=== PATIENT | male | born 1950 | race Caucasian/White ===

== ENCOUNTER 2022-12-07 07:55 | Outpatient (OUT) | payer MEDICARE, SELFPAY ==
[2022-12-07 08:34] LABS: Basophils Percent Auto 0.4 % (0.2-2.0); Eosinophils Absolute Auto 0.2 10^3/uL (0.0-0.7); Eosinophils Percent Auto 2.1 % (0.9-7.0); Hematocrit 43.7 % (42.0-54.0); Immature Granulocytes Abs Auto 0.01 10^3/uL (0.00-0.03); Immature Granulocytes Pct Auto 0.1 % (0.0-0.5); Lymphocytes Percent Auto 28.5 % (20.5-60.0); Mean Corpuscular Volume 90.5 fL (80.0-94.0); Mean Platelet Volume 9.8 fL (9.5-13.5); Monocytes Absolute Auto 0.6 10^3/uL (0.3-0.8); Monocytes Percent Auto 8.3 % (1.7-12.0); Neutrophils Absolute Auto 4.2 10^3/uL (1.4-6.5); Neutrophils Percent Auto 60.6 % (43.0-75.0); Platelet Count 171 10^3/uL (150-450); Red Blood Count 4.83 10^6/uL (4.70-6.10); Red Cell Distribution Width 13.6 % (11.0-15.0)
[2022-12-07 09:40] LABS: Alanine Aminotransferase 30 U/L (16-63); Albumin Globulin Ratio 1.3; Alkaline Phosphatase 104 U/L (46-116); Anion Gap 15.1; Aspartate Amino Transferase 25 U/L (15-37); BUN Creatinine Ratio 23.3; Bilirubin Total 1.2 mg/dL (0.2-1.0); Carbon Dioxide 23.9 mmol/L (21.0-32.0); Chloride 106 mmol/L (98-107); Chol HDL Ratio 3.3; Cholesterol 120 mg/dL (<=200); Estimated GFR (African America >60 (>=60); Estimated GFR (Non-African Ame >60 (>=60); Globulin 3.1 g/dL; Glucose 104 mg/dL (74-106); HDL Cholesterol 36 mg/dL (40-60); Sodium 141 mmol/L (136-145); Total Protein 7.1 g/dL (6.4-8.2); Triglycerides 121 mg/dL (<=150); VLDL CHOLESTEROL 24.2 mg/dL
== END 2022-12-07 07:56 | disposition home or self-care (01) ==
LOC: LAB 07:58
PROVIDERS: PCP Internal Medicine; Visit Provider Internal Medicine Interventional Cardiology
DX: E78.2 Mixed hyperlipidemia (principal)
CPT/HCPCS: 36415; 80053; 80061; 85025

== ENCOUNTER 2023-04-21 01:14 | Emergency (ER) | payer MEDICARE, SELFPAY ==
[2023-04-21 01:16] VITALS: BP 143/76; PULSE 74; RESP 18; TEMP 36.7; O2SAT 98; BMI 24.4
--- NOTE | 2023-04-21 01:23 | PC.NURSE ---
Pt reports fall onto right side last Sunday. Intermittent pain in right lumbar region that radiates to RLQ of abd.
--- NOTE | 2023-04-21 01:24 | CT_ITS ---
[facility] [place] [id number] Patient Name: JEREMY BAUM MRN: [id number] date: 1950 Sex: M Assigned Patient Location: ER Current Patient Location: Accession/Order Number: [id number] Exam Date: 04/21/2023 01:50 Report Date: 04/21/2023 03:39 At the request of: AVA RILEY Procedure: CT abdomen pelvis wo con EXAM: CT abdomen pelvis wo con HISTORY: right flank pain , right lower back pain. COMPARISON: No comparison imaging available at the time of dictation TECHNIQUE: Multiple axial views CT abdomen and pelvis without IV contrast. Coronal sagittal reformats. FINDINGS: Visualized lung bases are unremarkable. Visualized cardiac apex demonstrates borderline heart size with partially visualized left and right coronary artery calcifications. Moderate amount of calcifications at the aortic valves. Small hiatal hernia. Liver, gallbladder, pancreas, spleen, adrenal glands, and appendix are unremarkable. Mild right hydroureteronephrosis secondary to a 3 mm right ureterovesical junction stone (image 130 series 3). A 6 mm left distal ureteral stone without left hydroureteronephrosis (image 127 series 3). Multiple 2-3 mm nonobstructing bilateral renal stones (7 calculi scattered throughout the right kidney and 2 calculi at the left mid and inferior kidney). Urinary bladder is underdistended. Prostate is not seen or surgically absent. Mild colonic diverticula. Moderate amount of stool within the right large bowel. No evidence for small bowel obstruction, large ascites, or free air. No acute bony abnormality. CT/CT abdomen pelvis wo con IMPRESSION: Mild right hydroureteronephrosis secondary to a 3 mm right ureterovesical junction stone. A 6 mm left distal ureteral stone without left hydroureteronephrosis. Multiple 2-3 mm nonobstructing bilateral renal stones. Electronically authenticated by: WOODY SINGH Date: 04/21/2023 03:39
--- NOTE | 2023-04-21 01:26 | ED_ITS ---
HPI - General Adult General Chief complaint: Back Pain/Injury Stated complaint: BACK PAIN Time Seen by Provider: 04/21/23 01:21 Source: patient Mode of arrival: walk-in Limitations: no limitations History of Present Illness HPI narrative: sudden right flank pain that started around 9pm and ranked 10/10. He took tylenol - very little improvement - still ranks pain 8/10. Nausea without vomiting. Denied any urinary symptoms. He admitted he fell about a week ago =- twisted his ankle and had some right lower back pain - but tonight's pain was different, he told me. No fever or chills. Related Data Home Medications Medication Instructions Recorded Confirmed amlodipine 10 mg tablet 10 mg PO DAILY 04/21/23 04/21/23 aspirin 81 mg tablet,delayed 81 mg PO DAILY 04/21/23 04/21/23 release atorvastatin 40 mg tablet 40 mg PO DAILY 04/21/23 04/21/23 lisinopril 40 mg tablet 40 mg PO DAILY 04/21/23 04/21/23 metoprolol tartrate 25 mg tablet 25 mg PO DAILY 04/21/23 04/21/23 Previous Rx's Medication Instructions Recorded nabumetone 750 mg tablet 750 mg PO BID PRN pain #30 tabs 04/21/23 ondansetron 4 mg disintegrating 4 mg PO Q6H PRN nausea and 04/21/23 tablet vomiting #20 tabs tamsulosin 0.4 mg capsule (Flomax) 0.4 mg PO DAILY #10 caps 04/21/23 Allergies Allergy/AdvReac Type Severity Reaction Status Date / Time Sulfa (Sulfonamide Allergy Intermediate Verified 04/21/23 01:21 Antibiotics) Exam Narrative Exam Narrative: Nurses notes and vital signs reviewed and patient is not hypoxic. afebrile General: Well-appearing and in no apparent distress. Skin: Warm, dry, no pallor noted. No rash to flank or abdomen. Eye: Pupils are equal, round and EOMI. No scleral icterus. Ears, Nose, Mouth, and Throat: TM are clear, no nasal mucosal hypertrophy. Ora l mucosa is moist, no posterior oropharynx erythema, uvula is mid-line Cardiovascular: Regular Rate and Rhythm without murmur, gallop or rub. Respiratory: No accessory muscle use or respiratory distress. Lungs are clear to auscultation, no wheezing, rales or rhonchi Back: right flank tenderness and right CVA tenderness Musculoskeletal: normal ROM GI: Abdomen is soft, non-distended. Normal bowel sounds. No masses appreciated. No tenderness to palpation. No rebound, guarding, or rigidity noted. Neurological: A&O x4. No cranial nerve dysfunction observed. No truncal ataxia. Moves all extremities. Sensation intact. Psychiatric: Cooperative and interactive. Normal mood and affect. Constitutional Vital Signs, click to edit/add: Last Vital Signs Temp 98.0 F 04/21/23 01:16 Pulse 74 04/21/23 01:16 Resp 18 04/21/23 01:16 BP 143/76 H 04/21/23 01:16 Pulse Ox 98 04/21/23 01:16 O2 Del Method Room Air 04/21/23 01:16 Course Vital Signs Vital signs: Vital Signs Temperature 98.0 F 04/21/23 01:16 Pulse Rate 74 04/21/23 01:16 Respiratory Rate 18 04/21/23 01:16 Blood Pressure 143/76 H 04/21/23 01:16 Pulse Oximetry 98 04/21/23 01:16 Oxygen Delivery Method Room Air 04/21/23 01:16 Temperature 98.0 F 04/21/23 01:16 Pulse Rate 74 04/21/23 01:16 Respiratory Rate 18 04/21/23 01:16 Blood Pressure 143/76 H 04/21/23 01:16 Pulse Oximetry 98 04/21/23 01:16 Oxygen Delivery Method Room Air 04/21/23 01:16 Medical Decision Making MDM Narrative Medical decision making narrative: blood was ordered to be sent for testing. Urine was also ordered to be sent for testing. The patient was sent for CT scanning of the abdomen pelvis without contrast. He was given IV Toradol for pain. WBC 11.9k with left shift. Unremarkable metabolic panel except for slightly elevated glucose. UA negative. Patient's pain down to 2/10 after ED treatment. Tests results discussed with the patient and CT abd/pelvis would not transmit and then the radiologist's reading would not transmit back to us. I called repeatedly to [facility] to determine the problem. I finally got a verbal reading at [id number] - patient has a 3mm right UVJ stone with hydroureteronephrosis and 6mm left distal ureteral stone without hydro. He also has multiple 2-3mm stones in the both kidneys. Patient informed of results and discharged home with prescriptions for zofran, flomax and relafen. He was given referral info for the urologist. Instructed to return to the ED if he worsens. Lab Data Lab results reviewed: Yes I reviewed the patient's lab results Labs: Lab Results 04/21/23 04/21/23 Range/Units 01:30 02:16 WBC 11.9 H (4.0-11.0) 10^3/uL RBC 4.58 L (4.70-6.10) 10^6/uL Hgb 13.4 L (14.0-18.0) g/dL Hct 41.4 L (42.0-54.0) % MCV 90.4 (80.0-94.0) fL MCH 29.3 (25.9-34.0) pg MCHC 32.4 (29.9-35.2) g/dL RDW 13.9 (11.0-15.0) % Plt Count 189 (150-450) 10^3/uL MPV 9.7 (9.5-13.5) fL Neut % (Auto) 81.6 H (43.0-75.0) % Lymph % (Auto) 12.1 L (20.5-60.0) % Hopkins % (Auto) 4.9 (1.7-12.0) % Eos % (Auto) 0.8 L (0.9-7.0) % Baso % (Auto) 0.3 (0.2-2.0) % Neut # (Auto) 9.7 H (1.4-6.5) 10^3/uL Lymph # (Auto) 1.4 (1.2-3.8) 10^3/uL Hopkins # (Auto) 0.6 (0.3-0.8) 10^3/uL Eos # (Auto) 0.1 (0.0-0.7) 10^3/uL Baso # (Auto) 0.0 (0.0-0.1) 10^3/uL Abs Immat Gran (auto) 0.03 (0.00-0.03) 10^3/uL Imm/Tot Granulo (auto) 0.3 (0.0-0.5) % Sodium 139 (136-145) mmol/L Potassium 4.1 (3.5-5.1) mmol/L Chloride 105 (98-107) mmol/L Carbon Dioxide 26.0 (21.0-32.0) mmol/L Anion Gap 12.1 BUN 17.0 (7.0-18.0) mg/dL Creatinine 1.29 (0.70-1.30) mg/dL Est GFR ( Amer) >60 (>=60) Est GFR (Non-Af Amer) 55 L (>=60) BUN/Creatinine Ratio 13.2 Glucose 153 H (74-106) mg/dL Calcium 9.1 (8.5-10.1) mg/dL Total Bilirubin 0.6 (0.2-1.0) mg/dL AST 20 (15-37) U/L ALT 23 (16-63) U/L Alkaline Phosphatase 112 (46-116) U/L Total Protein 7.1 (6.4-8.2) g/dL Albumin 4.0 (3.4-5.0) g/dL Globulin 3.1 g/dL Albumin/Globulin Ratio 1.3 Urine Color Lt. yellow (YELLOW) Urine Clarity Clear (CLEAR) Urine pH 6.0 (5.0-9.0) Ur Specific [place]lett 1.020 (1.005-1.025) Urine Protein Negative (NEG/TRACE) mg/dL Urine Glucose (UA) Negative (NEGATIVE) mg/dL Urine Ketones Negative (NEGATIVE) mg/dL Urine Occult Blood Trace-i (NEGATIVE) Urine Nitrite Negative (NEGATIVE) Urine Bilirubin Negative (NEGATIVE) Urine Urobilinogen 0.2 (0.2-1.0) EU/dL Ur Leukocyte Esterase Negative (NEGATIVE) Urine RBC 0-2 (0-2) #/HPF Urine WBC None seen (NONE SEEN) #/HPF Ur Squamous Epith Cells None seen (NONE/RARE) #/LPF Urine Crystals None seen (None Seen) #/HPF Urine Bacteria Trace A (NONE SEEN) #/HPF Urine Casts None seen (NONE SEEN) #/LPF Urine Mucus None seen (NONE SEEN) Ur Culture Indicated? No Imaging Data CT scan - abdomen: My impression: see MDM above Discharge Plan Discharge Chief Complaint: Back Pain/Injury Clinical Impression: Hydroureteronephrosis, Calculus of distal left ureter, Right distal ureteral calculus Patient Disposition: Home, Self-Care Time of Disposition Decision: 04:32 Prescriptions / Home Meds: New tamsulosin [Flomax] 0.4 mg capsule 0.4 mg PO DAILY Qty: 10 0RF ondansetron 4 mg tablet,disintegrating 4 mg PO Q6H PRN (Reason: nausea and vomiting) Qty: 20 0RF nabumetone 750 mg tablet 750 mg PO BID PRN (Reason: pain) Qty: 30 0RF No Action amlodipine 10 mg tablet 10 mg PO DAILY atorvastatin 40 mg tablet 40 mg PO DAILY lisinopril 40 mg tablet 40 mg PO DAILY metoprolol tartrate 25 mg tablet 25 mg PO DAILY aspirin 81 mg tablet,delayed release (DR/EC) 81 mg PO DAILY Instructions: Hydronephrosis (ED), Ureteral Stones (ED) Stand Alone Forms: Portal Instructions Referrals: Long Turcios MD [Physician] - As soon as possible
[2023-04-21] MEDS: ONDANSETRON PF 4 MG/2 ML VIAL IV (01:36)
[2023-04-21] MEDS: KETOROLAC TROMETHAMINE 30 MG/ML VIAL IVP (01:36)
[2023-04-21 01:38] LABS: Basophils Percent Auto 0.3 % (0.2-2.0); Eosinophils Absolute Auto 0.1 10^3/uL (0.0-0.7); Eosinophils Percent Auto 0.8 % (0.9-7.0); Hematocrit 41.4 % (42.0-54.0); Hemoglobin 13.4 g/dL (14.0-18.0); Immature Granulocytes Abs Auto 0.03 10^3/uL (0.00-0.03); Immature Granulocytes Pct Auto 0.3 % (0.0-0.5); Lymphocytes Absolute Auto 1.4 10^3/uL (1.2-3.8); Lymphocytes Percent Auto 12.1 % (20.5-60.0); Mean Corpuscular HGB Conc 32.4 g/dL (29.9-35.2); Mean Corpuscular Hemoglobin 29.3 pg (25.9-34.0); Mean Corpuscular Volume 90.4 fL (80.0-94.0); Mean Platelet Volume 9.7 fL (9.5-13.5); Monocytes Absolute Auto 0.6 10^3/uL (0.3-0.8); Monocytes Percent Auto 4.9 % (1.7-12.0); Neutrophils Absolute Auto 9.7 10^3/uL (1.4-6.5); Neutrophils Percent Auto 81.6 % (43.0-75.0); Platelet Count 189 10^3/uL (150-450); Red Blood Count 4.58 10^6/uL (4.70-6.10); Red Cell Distribution Width 13.9 % (11.0-15.0); White Blood Count 11.9 10^3/uL (4.0-11.0)
[2023-04-21 01:53] LABS: Alanine Aminotransferase 23 U/L (16-63); Albumin Globulin Ratio 1.3; Alkaline Phosphatase 112 U/L (46-116); Anion Gap 12.1; Aspartate Amino Transferase 20 U/L (15-37); BUN Creatinine Ratio 13.2; Bilirubin Total 0.6 mg/dL (0.2-1.0); Calcium 9.1 mg/dL (8.5-10.1); Chloride 105 mmol/L (98-107); Estimated GFR (African America >60 (>=60); Estimated GFR (Non-African Ame 55 (>=60); Globulin 3.1 g/dL; Glucose 153 mg/dL (74-106); Potassium 4.1 mmol/L (3.5-5.1); Sodium 139 mmol/L (136-145); Total Protein 7.1 g/dL (6.4-8.2)
[2023-04-21 02:19] LABS: Bilirubin Urine NEGATIVE (NEGATIVE); Blood Urine TRACE-I (NEGATIVE); Clarity Urine CLEAR (CLEAR); Color Urine LT. YELLOW (YELLOW); Glucose Urine UA NEGATIVE (NEGATIVE); Ketones Urine NEGATIVE (NEGATIVE); Leukocyte Esterase Urine NEGATIVE (NEGATIVE); Nitrite Urine NEGATIVE (NEGATIVE); Protein Urine NEGATIVE (NEG/TRACE); Urobilinogen Urine 0.2 EU/dL (0.2-1.0)
[2023-04-21 02:24] LABS: Urine Microscopic Indicated YES
[2023-04-21 02:30] LABS: Bacteria Urine TRACE #/HPF (NONE SEEN); Cast Seen? NONE SEEN #/LPF (NONE SEEN); Crystals Seen? None Seen #/HPF (None Seen); Mucus Urine NONE SEEN (NONE SEEN); RBC Urine 0-2 #/HPF (0-2); Squamous Epithelial Cell Urine NONE SEEN #/LPF (NONE/RARE); Urine Culture Indicated NO; WBC Urine NONE SEEN #/HPF (NONE SEEN)
[2023-04-21 04:44] VITALS: BP 144/98; PULSE 68; RESP 16; O2SAT 99
== END 2023-04-21 04:46 | disposition home or self-care (01) ==
PROVIDERS: Emergency Provider Emergency Medicine; PCP Family Medicine
DX: N13.2 Hydronephrosis with renal and ureteral calculous obstruction (principal); Z79.82 Long term (current) use of aspirin; Z79.899 Other long term (current) drug therapy
CPT/HCPCS: 36415; 74176; 80053; 81001; 82365; 85025; 96374; 96375; 99285

== ENCOUNTER 2023-04-21 11:00 | Outpatient (OUT) | payer MEDICARE, SELFPAY ==
[2023-05-08 15:08] LABS: Calcium Oxalate Monohydrate 100 % (.); Size 3x3 mm (.)
== END 2023-04-21 11:01 | disposition home or self-care (01) ==
LOC: LAB 04-28 09:49
PROVIDERS: PCP Family Medicine; Visit Provider Urology
DX: N20.0 Calculus of kidney (principal)
CPT/HCPCS: 82365

== ENCOUNTER 2023-08-01 09:53 | Outpatient (OUT) | payer MEDICARE, SELFPAY ==
--- NOTE | 2023-08-01 10:01 | XR_ITS ---
The [address] [address] Patient Name: JEREMY BAUM MRN: [id number] date: 1950 Sex: M Assigned Patient Location: RAD Current Patient Location: RAD Accession/Order Number: [id number] Exam Date: 08/01/2023 10:05 Report Date: 08/01/2023 10:30 At the request of: ROEL DIOR Procedure: XR abdomen 1V EXAMINATION: XR abdomen 1V HISTORY: Kidney Stones COMPARISON: No relevant comparison available. FINDINGS: KIDNEY/URETER - RIGHT: 6 mm calcification projects over the right mid sacrum KIDNEY/URETER - LEFT: No visible renal or ureteral calcifications. PELVIS: No visible ureteral calcifications. Any visible calcifications favor phleboliths. BOWEL: No abnormal dilation or deviation. BONES: No acute abnormality. OTHER: Negative. No abnormal gaseous collections. XR/XR abdomen 1V IMPRESSION: Possible right mid ureterolith Electronically authenticated by: AZALIA SOTO Date: 08/01/2023 10:30
--- OUTSIDE RECORDS SUMMARY | 2023-08-01 10:07 | XMS_ITS | CCD ---
Author Name Unknown Address [address] [place] [address] Organization [facility] Care Team Providers Care [employer] Agronomist Name Role Phone DR SUSI JACKSON Primary Care Unavailable DR ROEL DIOR Consulting Unavailable OVI, DR SEVILLA Attending Unavailable DR ROEL DIOR Admitting Unavailable SHANIQUA XIAO Consulting Unavailable DR SUSI JACKSON Primary Care Unavailable SHANIQUA XIAO Attending Unavailable SHANIQUA XIAO Admitting Unavailable MARIE ISAACS Attending Unavailable Telma Mcdonald Unavailable Allergies Allergy Classification Reported Allergen(s) Allergy Type Date of Onset Reaction(s) Facility (1 source) Sulfonamides (Antibiotic) Drug allergy (disorder) 9 [facility] (1 source) ALLERGIES NOT ON FILE; Translations: [ALLERGIES NOT ON FILE] Propensity to adverse reactions (disorder) [facility] Repository Medications Current Medications Medication Drug Class(es) Dates Sig (Normalized) Sig (Original) amLODIPine 10 mg oral tablet (1 source) Dihydropyridine Calcium Channel Noel take 1 tablet by mouth every twenty-four hours amLODIPine Besylate 10 MG 1 tablet Orally Once a day Active Aspir-81 81 MG (1 source) Aspir-81 81 MG Orally Active atorvastatin 40 mg oral tablet (2 sources) HMG-CoA Reductase Inhibitor Lipitor 80 MG Orally Not-Taking/PRN take 1 tablet by faheem th every twenty-four hours Atorvastatin Calcium 40 MG 1 tablet Oral ly Once a day Active Calcium Carbonate / Famotidine / Magnesium Hydroxide (1 source) Histamine-2 Receptor Antagonist Pepcid Complete Active lisinopril 40 mg oral tablet (2 sources) Angiotensin Converting Enzyme Inhibitor take 1 tablet by mouth every twenty-four hours Lisinopril 40 MG 1 tablet Orally Once a day Active Prinivil 20 MG O rally Not-Taking/PRN Metoprolol (2 sources) beta-Adrenergic Noel take 1 capsule b y mouth once daily Metoprolol Succinate 25 MG 1 capsule Orally Once a day Active Metoprolol Tartr ate 12.5 mg Orally Active Completed/Discontinued Medications Medication Drug Class(es) Dates Sig (Normalized) Sig (Original) Augmentin Tablets 875 MG (1 source) Start: 05-31-2014 take 1 tablet by mouth every twelve hours at mealtime Augmentin Tablets 875 MG 1 by mouth every 12 hours with food and probiotics for 10 days May, Not-Taking/PRN raNITIdine 150 mg oral tablet (1 source) Histamine-2 Receptor Antagonist Zantac 150 MG Orally Not-Taking/PRN tobramycin 3 mg/ml ophthalmic solution (1 source) Aminoglycoside Antibacterial Start: 05-31-2014 take 2 drop(s) into the eye(s) every four hours as needed Tobramycin 0.3 % 2 drop into affected eye Ophthalmic every 4 hrs while awake for 7 days May, Not-Taking/PRN Problems Problem Classification Problem Date Documented Date Episodic/Chronic Cancer of prostate (4 sources) Personal history of malignant neoplasm of prostate; Translations: [PERSONAL HX MALIG NEOPLASM PROSTATE] Onset: 08-24-2021 Episodic Coronary atherosclerosis and other heart disease (6 sources) Atherosclerotic heart disease of [place] coronary artery without angina pectoris; Translations: [ASHD [place] CA W/O ANGINA PECTORIS] Onset: 07-08-2021 Chronic Coronary atherosclerosis and other heart disease (2 sources) Presence of coronary angioplasty implant and graft; Translations: [Presence of coronary angioplasty implant and graft] Onset: 12-04-2022 Episodic Disorders of lipid metabolism (2 sources) Mixed hyperlipidemia; Translations: [Mixed hyperlipidemia] Onset: 03-01-2022 Chronic Essential hypertension (2 sources) Essential (primary) hypertension; Translations: [Essential (primary) hypertension] Onset: 12-04-2022 Chronic Genitourinary symptoms and ill-defined conditions (1 source) Stress incontinence (female) (male); Translations: [STRESS INCONTINENCE FEMALE MALE] Onset: 08-26-2021 Chronic Influenza (1 source) Influenza due to other identified influenza virus with other respiratory manifestations Episodic Other upper respiratory disease (1 source) Nasal congestion Episodic Results Test Name Value Interpretation Reference Range Facil ity [facility] 05-18-2023 Lab Reports [id number] #1.00TIFF Normal [facility] 05-14-2023 Lab Reports [id number] #1.00TIFF Normal [facility] COVID/FLU RT-PCRon 3 SARS-CoV-2 (COVID-19) RNA MAIKEL+probe Ql (Unsp spec) Negative [facility] Other COVID/FLU RT-PCR Positive [facility] Other COVID/FLU RT-PCR Negative [facility] Other Office Visiton 12-04-2022 Follow-up visit [id number] Jermaine Bosch 1950 M Date Provider Department Center 12/04/2022 MARIE DAWKINS [facility] Family History Problem Relation Age of Onset Coronary artery disease Mother Coronary artery disease Father Family Status - Relation Status Age at Mother Father Level of Service:73123 NC OFFICE/OUTPATIENT ESTABLISHED MOD MDM 30-39 MIN Reason for Visit and Comments: Coronary Artery Disease [187] Hypertension [798103] Hyperlipidemia [182] Normal [facility] CBC AUTO DIFFon 07-08-2021 BASO # 0.0 103/ul Normal 0.0-0.1 [facility] Comment on above: Performed By: #### C BC #### [facility] [address] [address] [address] Adalberto Sierra Basophils/100 WBC (Bld) 0.6 % Normal 0.2-2.0 [facility] Comment on above: Performed By: #### C BC #### [facility] [address] [address] [address] Adalberto Sierra EO # 0.2 103/ul Normal 0.0-0.7 [facility] Comment on above: Performed By: #### C BC #### [facility] [address] [address] [address] Adalberto Sierra Eosinophils/100 WBC (Bld) 3.0 % Normal 0.9-7.0 [facility] Comment on above: Performed By: #### C BC #### [facility] [address] [place] [address] Dr. Adalberto Sierra Erythrocyte distribution width (RBC) [Ratio] 13.4 % Normal 11.0-15.0 [facility] Comment on above: Performed By: #### C BC #### [facility] [address] [place] [address] Dr. Adalberto Sierra Hematocrit (Bld) [Volume fraction] 41.6 % Critically low 42.0-54.0 [facility] Comment on above: Performed By: #### C BC #### [facility] [address] [place] [address] Dr. Adalberto Sierra Hemoglobin (Bld) [Mass/Vol] 13.5 g/dL Critically low 14.0-18.0 [facility] Comment on above: Performed By: #### C BC #### [facility] [address] [place] [address] Dr. Adalberto Sierra IG # 0.01 10e3/ul Normal 0.00-0.03 [facility] Comment on above: Performed By: #### C BC #### [facility] [address] [place] [address] Dr. Adalberto Sierra IG % 0.2 % Normal 0.0-0.5 [facility] Comment on above: Performed By: #### C BC #### [facility] [address] [place] [address] Dr. Adalberto Sierra LYMPH # 2.0 103/ul Normal 1.2-3.8 [facility] Comment on above: Performed By: #### C BC #### [facility] [address] [place] [address] Dr. Adalberto Sierra Lymphocytes/100 WBC (Bld) 31.9 % Normal 20.5-60.0 [facility] Comment on above: Performed By: #### C BC #### [facility] [address] [place] [address] Dr. Adalberto Sierra MANUAL DIFF REQ NO Normal [facility] Comment on above: Performed By: #### C BC #### [facility] [address] [place] [address] Dr. Adalberto Sierra MCH (RBC) [Entitic mass] 28.8 pg Normal 25.9-34.0 [facility] Comment on above: Performed By: #### C BC #### [facility] [address] [place] [address] Dr. Adalberto Sierra MCHC (RBC) [Mass/Vol] 32.5 g/dL Normal 29.9-35.2 [facility] Comment on above: Performed By: #### C BC #### [facility] [address] [place] [address] Dr. Adalberto Sierra MCV (RBC) [Entitic vol] 88.9 fL Normal 80.0-94.0 [facility] Comment on above: Performed By: #### C BC #### [facility] [address] [place] [address] Dr. Adalberto Sierra MONO # 0.5 103/ul Normal 0.3-0.8 [facility] Comment on above: Performed By: #### C BC #### [facility] [address] [place] [address] Dr. Adalberto Sierra Monocytes/100 WBC (Bld) 7.2 % Normal 1.7-12.0 [facility] Comment on above: Performed By: #### C BC #### [facility] [address] [place] [address] Dr. Adalberto Sierra NEUT # 3.6 103/ul Normal 1.4-6.5 [facility] Comment on above: Performed By: #### C BC #### [facility] [address] [place] [address] Dr. Adalberto Sierra Neutrophils/100 WBC (Bld) 57.1 % Normal 43.0-75.0 [facility] Comment on above: Performed By: #### C BC #### [facility] [address] [place] [address] Dr. Adalberto Sierra Platelet mean volume (Bld) [Entitic vol] 9.3 fL Critically low 9.5-13.5 [facility] Comment on above: Performed By: #### C BC #### [facility] [address] [address] [address] Adalberto Sierra PLT 154 103/ul Normal 150-450 [facility] Comment on above: Performed By: #### C BC #### [facility] [address] [address] [address] Adalberto Sierra RBC 4.68 106/ul Critically low 4.70-6.10 [facility] Comment on above: Performed By: #### C BC #### [facility] [address] [address] [address] Adalberto Sierra WBC 6.4 103/ul Normal 4.0-11.0 [facility] Comment on above: Performed By: #### C BC #### [facility] [address] [place] [address] Dr. Adalberto Sierra LIPID PROFILEon 07-08-2021 CHOL-HDL RATIO NORM SEE BELOW Normal [facility] Comment on above: Result Comment: 3.3 - 4.4 LOW RISK 4.4 - 7.1 AVERAGE RISK 7.1 - 11.0 MODERATE RISK >11.0 HIGH RISK Performed By: #### L IPID, CMP #### [facility] [address] [place] [address] Dr. Adalberto Sierra Cholesterol [Mass/Vol] 87 mg/dL Normal <=200 [facility] Comment on above: Performed By: #### L IPID, CMP #### [facility] [address] [place] [address] Dr. Adalberto Sierra Cholesterol in HDL [Mass/Vol] 32 mg/dL Normal [facility] Comment on above: Performed By: #### L IPID, CMP #### [facility] [address] [address] [address] Adalberto Sierra Cholesterol in LDL [Mass/Vol] 28.6 mg/dL Normal [facility] Comment on above: Performed By: #### L IPID, CMP #### [facility] [address] [place] [address] Dr. Adalberto Sierra Cholesterol.total/ Cholesterol in HDL [Mass ratio] 2.7 {ratio} Normal [facility] Comment on above: Performed By: #### L IPID, CMP #### [facility] [address] [address] [address] Adalberto Sierra HDL NORMAL > or = 60 mg/dl - LOW CARDIOVASCULAR RISK <40 mg/dl - HIGH CARDIOVASCULAR RISK Normal [facility] Comment on above: Performed By: #### L IPID, CMP #### [facility] [address] [address] [address] Adalberto Sierra LDL CALC NORMAL SEE BELOW Normal [facility] Comment on above: Result Comment: <100 mg/dl OPTIMAL 100 - 129 mg/dl NEAR OR ABOVE OPTIMAL 130 - 159 mg/dl BORDERLINE HIGH 160 - 189 mg/dl HIGH >190 mg/dl VERY HIGH Performed By: #### L IPID, CMP #### [facility] [address] [address] [address] Adalberto Sierra Triglyceride [Mass/Vol] 132 mg/dL Normal <=150 [facility] Comment on above: Performed By: #### L IPID, CMP #### [facility] [address] [address] [address] Adalberto Sierra VLDL CALC 26.4 mg/dL Normal [facility] Comment on above: Performed By: #### L IPID, CMP #### [facility] [address] [address] [address] Adalberto Sierra PROF 14(COMP METB)on 022 Albumin [Mass/Vol] 4.0 g/dL Normal 3.5-5.0 [facility] Comment on above: Performed By: #### L IPID, CMP #### [facility] [address] [address] [address] Adalberto Sierra Albumin/Globulin [Mass ratio] 1.4 {ratio} Normal [facility] Comment on above: Performed By: #### L IPID, CMP #### [facility] [address] [address] [address] Adalberto Sierra ALP [Catalytic activity/Vol] 102 U/L Normal 38-126 [facility] Comment on above: Performed By: #### L IPID, CMP #### [facility] [address] [address] [address] Adalberto Sierra ALT [Catalytic activity/Vol] 36 U/L Normal 21-72 [facility] Comment on above: Performed By: #### L IPID, CMP #### [facility] [address] [address] [address] Adalberto Sierra Anion gap [Moles/Vol] 11.0 mmol/L Normal [facility] Comment on above: Performed By: #### L IPID, CMP #### [facility] [address] [address] [address] Adalberto Sierra AST [Catalytic activity/Vol] 24 U/L Normal 17-59 [facility] Comment on above: Performed By: #### L IPID, CMP #### [facility] [address] [place] [address] Dr. Adalberto Sierra Bilirubin [Mass/Vol] 0.9 mg/dL Normal 0.2-1.3 [facility] Comment on above: Performed By: #### L IPID, CMP #### [facility] [address] [place] [address] Dr. Adalberto Sierra Calcium [Mass/Vol] 9.3 mg/dL Normal 8.4-10.2 [facility] Comment on above: Performed By: #### L IPID, CMP #### [facility] [address] [place] [address] Dr. Adalberto Sierra Chloride [Moles/Vol] 106 mmol/L Normal 98-107 [facility] Comment on above: Performed By: #### L IPID, CMP #### [facility] [address] [address] [address] Adalberto Sierra CO2 [Moles/Vol] 28.0 mmol/L Normal 22.0-30.0 [facility] Comment on above: Performed By: #### L IPID, CMP #### [facility] [address] [place] [address] Dr. Adalberto Sierra Creatinine [Mass/Vol] 0.84 mg/dL Normal 0.66-1.25 [facility] Comment on above: Performed By: #### L IPID, CMP #### [facility] [address] [address] [address] Adalberto Sierra EGFR-AF RUSSIAN >60 Normal >=60 [facility] Comment on above: Performed By: #### L IPID, CMP #### [facility] [address] [address] [address] Adalberto Sierra EGFR-NON AF RUSSIAN >60 Normal >=60 [facility] Comment on above: Performed By: #### L IPID, CMP #### [facility] [address] [address] [address] Adalberto Sierra Globulin (S) [Mass/Vol] 2.8 g/dL Normal [facility] Comment on above: Performed By: #### L IPID, CMP #### [facility] [address] [address] [address] Adalberto Sierra Glucose [Mass/Vol] 101 mg/dL Normal 74-106 [facility] Comment on above: Performed By: #### L IPID, CMP #### [facility] [address] [address] [address] Adalberto Sierra Potassium [Moles/Vol] 4.0 mmol/L Normal 3.4-5.0 [facility] Comment on above: Performed By: #### L IPID, CMP #### [facility] [address] [address] [address] Adalberto Sierra Protein [Mass/Vol] 6.8 g/dL Normal 6.1-8.2 [facility] Comment on above: Performed By: #### L IPID, CMP #### [facility] [address] [address] [address] Adalberto Sierra Sodium [Moles/Vol] 141 mmol/L Normal 137-145 [facility] Comment on above: Performed By: #### L IPID, CMP #### [facility] [address] [address] [address] Adalberto Sierra Urea nitrogen [Mass/Vol] 12.0 mg/dL Normal 9.0-20.0 [facility] Comment on above: Performed By: #### L IPID, CMP #### [facility] [address] [address] [address] Adalberto Sierra Urea nitrogen/Creatinin e [Mass ratio] 14.3 mg/mg Normal [facility] Comment on above: Performed By: #### L IPID, CMP #### [facility] [address] [address] [address] Adalberto Sierra Vital Signs Date Time Vital Sign Value Performing Clinician Facility 05-04-2023 09:50-0500 Body height 175.26 cm Telma Hollidaymond Other [facility] Other 05-04-2023 09:50-0500 Body mass index (BMI) [Ratio] 25.34 kg/m2 Telma Hollidaymond Other [facility] Other 05-04-2023 09:50-0500 Body temperature 99.6 [degF] Telma Hollidaymond Other [facility] Other 05-04-2023 09:50-0500 Body weight 77.84 kg Telma Hollidaymond Other [facility] Other 05-04-2023 09:50-0500 Diastolic blood pressure 80 mm[Hg] Telma Tamara Other [facility] Other 05-04-2023 09:50-0500 Respiratory rate 18 /min Telma Hollidaymond Other [facility] Other 05-04-2023 09:50-0500 SaO2% (BldA) [Mass fraction] 96 % Telma Tamara Other [facility] Other 05-04-2023 09:50-0500 Systolic blood pressure 134 mm[Hg] Telma Tamara Other [facility] Other Encounters Encounter Date Encounter Type Care Provider Facility Start: 05-04-2023 End: 05-04-2023 ambulatory Telma Tamara Other [facility] Other Start: 05-04-2023 Office outpatient ne w 20 minutes Telma Mcdonald [facility] Start: 12-04-2022 End: 12-04-2022 ambulatory [facility] Start: 08-24-2021 End: 08-25-[address] SUSI JACKSON Facility:[facility] Start: 07-08-2021 End: 07-09-2021 ambulatory SHANIQUA XIAO Facility:[facility] Procedures Date Procedure Procedure Detail Performing Clinician Start: 08-24-[address] SUSI BURDICK Comment on above: Performed By: #### P SAD #### [facility] [address] [place] [address] Dr. Adalberto Sierra Payers Date Payer Category Payer Medicare [id number] 1960 Unknown [id number] 1950 Unknown [id number] 1950 Unknown [id number] Social History Date Type Detail Facility Unknown if ever smoked [facility] Other Sex Assigned At Sex Assigned At Bir th [facility] Other Evaluation note 05-04-2023 Note Date & Type Note Facility 05-04-2023 Evaluation note Encounter Date Diagnosis Assessment Notes Apr, Sinus congestion (ICD-10 - R09.81) Apr, Influenza A (ICD-10 - J10.1) Influenza: adult home care material was printed Drink plenty fluids, get plenty of rest. Take Tylenol or Motrin as needed for aches pains or fevers. Continue home occasions as prescribed. Follow-up with your family physician if no improvement in 2 to 3 days [facility] Other Progress note 12-04-2022 Note Date & Type Note Facility 12-04-2022 Note [place] [facility] Subjective Jermaine Bosch is a 72 y.o. year old male patient being seen for Coronary Artery Disease, Hypertension, and Hyperlipidemia Patient Active Problem List Diagnosis Coronary atherosclerosis Essential hypertension Gastroesophageal reflux disease Hyperlipidemia Family History Problem Relation Name Age of Onset Coronary artery disease Mother Coronary artery disease Father ABEBE Dean is here for follow up on CAD s/p LAD stenting in 2011, hyperlipidemia and hypertension. His echocardiogram at time of his stent procedure showed preserved overall LV systolic function with hypertrophy and no valvular dysfunction. He currently takes aspirin, I had stopped effient on prior visit. He is also on lisinopril 40 mg daily, amlodipine 10 mg daily, metoprolol 12.5 mg bid and atorvastatin 40 mg daily. On prior visit I had reduced metoprolol dose due to bradycardia and he said he felt much better with that. Of note, he got diagnosed with Lyme disease after a trip to [place] in December 2013. He was treated. In 06/2021 due to LDL being 29, his atorvastatin was reduced from 80 to 40 mg daily. he denies chest pain, shortness of breath, palpitations, dizziness, syncope and leg edema. he has good exercise tolerance. There is no claudication. Review of Systems All other systems reviewed and are negative. Objective Visit Vitals BP 142/77 (BP Location: Right leg, Patient Position: Sitting) Pulse 62 Wt 77.1 kg (170 lb) SpO2 97% BMI 25.10 kg/m??? BSA 1.94 m??? Physical Exam Constitutional: Appearance: He is well-developed. He is not ill-appearing. HENT: Head: Normocephalic and atraumatic. Nose: Nose normal. Eyes: General: No scleral icterus. Pupils: Pupils are equal, round, and reactive to light. Neck: Thyroid: No thyromegaly. Vascular: No JVD. Cardiovascular: Rate and Rhythm: Normal rate and regular rhythm. Pulses: Radial pulses are 2+ on the right side and 2+ on the left side. Heart sounds: Normal heart sounds. No murmur heard. No friction rub. No gallop. Pulmonary: Effort: Pulmonary effort is normal. No respiratory distress. Breath sounds: Normal breath sounds. No wheezing or rales. Chest: Chest wall: No tenderness. Abdominal: General: Bowel sounds are normal. There is no distension. Palpations: Abdomen is soft. Tenderness: There is no abdominal tenderness. Musculoskeletal: General: No swelling. Cervical back: Neck supple. Skin: General: Skin is warm and dry. Neurological: General: No focal deficit present. Mental Status: He is alert and oriented to person, place, and time. Psychiatric: Mood and Affect: Mood normal. Behavior: Behavior is cooperative. Judgment: Judgment normal. Allergies Not on File Medications Current Outpatient Medications: amLODIPine (Norvasc) 10 mg tablet, Take 1 tablet (10 mg) by mouth in the morning., Disp: 90 tablet, Rfl: 3 aspirin 81 mg EC tablet, Take 1 tablet every day by oral route., Disp: , Rfl: atorvastatin (Lipitor) 40 mg tablet, Take one tablet daily, Disp: 90 tablet, Rfl: 3 lisinopril 40 mg tablet, Take 1 tablet by mouth in the morning., Disp: , Rfl: metoprolol tartrate (Lopressor) 25 mg tablet, Take 0.5 tablets (12.5 mg) by mouth in the morning and at bedtime., Disp: 90 tablet, Rfl: 3 Recent Labs No visits with results within 6 Month(s) from this visit. Latest known visit with results is: No results found for any previous visit. Blood testing 07/08/2021: CBC, CMP w/n normal, TG 132, LDL 29. 04/02/2018: LDL 57. TG 65. CBC, BMP, LFTs, CPK normal. BMP 07/2016 was within normal. LDL 05/2020: 60 Imaging and other tests A stress test on 11/14/2018: No acute or reversible ischemia. Thinning of the inferior and inferior septal wall versus attenuation artifact no change between stress and rest imaging. Mild ventriculomegaly. Normal wall motion and ejection fraction of 59 percent. Blood testing 04/13/2016: normal CBC, chem, and LDL 63 TG 106 ECG 07/19/2016 in clinic showed normal sinus rhythm with RBBB. Assessment/Plan Diagnoses and all orders for this visit: Coronary artery disease involving [place] coronary artery of [place] heart without angina pectoris - Lipid panel; Future Primary hypertension Mixed hyperlipidemia - CBC and differential; Future - Lipid panel; Future - Comprehensive metabolic panel; Future Status post insertion of drug eluting coronary artery stent I think that Jermaine is doing very well from the cardiac perspective. He has no angina. His blood pressure is controlled per home readings (systolic 110-120). His blood pressure is always a little elevated at physician's office. I asked him to continue to monitor at home. I will continue current medication. His prior lipids were controlled on atorvastatin 80 mg daily, this was reduced to 40 mg daily due to LDL of 29. I will check CBC, CMP and lipids. Follow up in about 1 ye (more content not included)... [facility] History general Narrative - Reported Note Date & Type Note Facility History general Narrative - Reported Type Medical History HTN (hypertension) Medical History Hypercholesterolemia Medical History Heart disease Surgical History Neck Surgery Surgical History prostatectomy Surgical History cancer Surgical History hemorrhoidectomy Surgical History cardiac stent Hospitalization History see above [facility] Other Summary Purpose Family History No Family History Records FoundNo Family History Records FoundNo Family History Records Found Advance Directives No Advanced Directives Records FoundNo Advanced Directives Records FoundNo Advanced Directives Records Found Additional Source Comments (unrecognized sect ion and content) No Status Records FoundNo Status Records FoundNo Status Records Found INFORMATION SOURCE (unrecogn ized section and content) DATE CREATED AUTHOR 08/29/2021 [facility] [facility] DATE CREATED AUTHOR AUTHOR'S ORGANIZ ATION 12/04/2022 [facility] DATE CREATED AUTHOR AUTHOR'S ORGANIZ ATION 05/19/2023 [facility] REASON FOR VISIT (unrecogniz ed section and content) SINUS CONGESTION, COUGH, EXP OSURE TO INFLUENZA FOR RECORDS PERTAINING TO PATIENTS WHO ARE OR HAVE BEEN ENROLLED IN A CHEMICAL DEPENDENCY/SUBSTANCEABUSE PROGRAM, SOME INFORMATION MAY BE OMITTED. This clinical summary was aggregated from multiple sources. Caution should be exercised in using it in the provision of clinical care. This summary normalizes information from multiple sources, and as a consequence, information in this document may materially change the coding, format and clinical context of patient data. In addition, data may be omitted in some cases. CLINICAL DECISIONS SHOULD BE BASED ON THE PRIMARY CLINICAL RECORDS. [email or web address] provides no warranty or guarantee of the accuracy or completeness of information in this document.
== END 2023-08-01 09:54 | disposition home or self-care (01) ==
LOC: RAD 09:54
PROVIDERS: PCP Family Medicine; Visit Provider Urology
DX: N20.0 Calculus of kidney (principal)
CPT/HCPCS: 74018

== ENCOUNTER 2023-09-07 08:51 | Outpatient (OUT) | payer MEDICARE, SELFPAY ==
--- OUTSIDE RECORDS SUMMARY | 2023-09-06 09:22 | XMS_ITS | CCD ---
Author Organization [facility] Care Team Providers Care Vocational Guidance Counselor Name Role Phone DR SUSI JACKSON Primary Care Unavailable OVI, DR SEVILLA Consulting Unavailable OVI, DR SEVILLA Attending Unavailable OVI, DR SEVILLA Admitting Unavailable SHANIQUA XIAO Consulting Unavailable RENETTA, DR SUSI Hernandez Primary Care Unavailable SHANIQUA XIAO Attending Unavailable SHANIQUA XIAO Admitting Unavailable MARIE ISAACS Attending Unavailable Telma Mcdonald Unavailable SUSI JACKSON Primary Care Physician Seb GRANDE Attending Unavailable Seb GRANDE Attending Unavailable Seb GRANDE Attending Unavailable Seb GRANDE Admitting Unavailable Allergies Allergy Classification Reported Allergen(s) Allergy Type Date of Onset Reaction(s) Facility (1 source) Sulfonamides (Antibiotic) Drug allergy (disorder) [address] [facility] Repository (1 source) ALLERGIES NOT ON FILE; Translations: [ALLERGIES NOT ON FILE] Propensity to adverse reactions (disorder) [facility] Repository (3 sources) Sulfonamides (Antibiotic); Translations: [sulfa drugs] Drug allergy Mild (qualifier value) [facility] (1 source) No Known Medication Allergies; Translations: [No Known Medication Allergies] Propensity to adverse reactions (disorder) [facility] Repository Medications Current Medications Medication Drug Class(es) Dates Sig (Normalized) Sig (Original) amLODIPine 10 mg oral tablet (3 sources) Dihydropyridine Calcium Channel Noel Start: 09-09-2019 take 1 tablet by mouth once daily amLODIPine 10 mg Tab 10 mg = 1 tab(s), Oral, Daily Start Date: 09/09/19 Status: Ordered Aspir-81 81 MG (1 source) Aspir-81 81 MG Orally Active aspirin 81 mg chewable tablet (2 sources) Platelet Aggregation Inhibitor, Nonsteroidal Anti-inflammatory Drug Start: 09-09-2019 aspirin 81 mg Chew Tab 81 mg = 1 tab(s), Chewed, Daily Start Date: 09/09/19 Status: Ordered atorvastatin 80 mg oral tablet (4 sources) HMG-CoA Reductase Inhibitor Start: 09-09-2019 take 1 tablet by mouth once daily atorvastatin 80 mg Tab 80 mg = 1 tab(s), Oral, Daily Start Date: 09/09/19 Status: Ordered take 1 tablet by faheem th every twenty-four hours Atorvastatin Calcium 40 MG 1 tablet Oral ly Once a day Active Calcium Carbonate / Famotidine / Magnesium Hydroxide (1 source) Histamine-2 Receptor Antagonist Pepcid Complete Active Pepcid (2 sources) Histamine-2 Receptor Antagonist Start: 09-19-2019 Pepcid Refills(s) 0 Start Date: 09/19/19 Status: Ordered lisinopril 40 mg oral tablet (4 sources) Angiotensin Converting Enzyme Inhibitor Start: 09-09-2019 take 1 tablet by mouth once daily lisinopril 40 mg Tab 40 mg = 1 tab(s), Oral, Daily Start Date: 09/09/19 Status: Ordered Prinivil 20 MG O rally Not-Taking/PRN 24 hr metoprolol succinate 25 mg extended release oral tablet (4 sources) beta-Adrenergic Noel Start: 09-09-2019 metopr olol 25 mg ER Tab 12.5 mg = 0.5 tab(s), Oral, BID Start Date: 09/09/19 Status: Ordered take 1 capsule by mouth once mathew ly Metoprolol Succinate 25 MG 1 capsule Orally [...] Problem Classification Problem Date Documented Date Episodic/Chronic Calculus of urinary tract (3 sources) Kidney stone; Translations: [Calculus of kidney] Onset: 08-06-2023 Episodic Cancer of prostate (7 sources) Personal history of malignant neoplasm of prostate; Translations: [History of malignant neoplasm of prostate] Onset: 08-24-2021 Episodic Cardiac dysrhythmias (2 sources) Atrial fibrillation 09-09-2019 Chronic Coronary atherosclerosis and other heart disease (6 sources) Atherosclerotic heart disease of [place] coronary artery without angina pectoris; Translations: [ASHD [place] CA W/O ANGINA PECTORIS] Onset: 07-08-2021 Chronic Coronary atherosclerosis and other heart disease (2 sources) Presence of coronary angioplasty implant and graft; Translations: [Presence of coronary angioplasty implant and graft] Onset: 12-04-2022 Episodic Disorders of lipid metabolism (4 sources) Mixed hyperlipidemia; Translations: [Hyperlipidemia] Onset: 03-01-2022 Chronic Esophageal disorders (2 sources) Gastroesophageal reflux disease 09-09-2019 Chronic Essential hypertension (4 sources) Essential (primary) hypertension; Translations: [Hypertensive disorder] Onset: 12-04-2022 Chronic Genitourinary symptoms and ill-defined conditions (3 sources) Stress incontinence (female) (male); Translations: [Male urinary stress incontinence] Onset: 08-26-2021 09-09-2019 Chronic Hyperplasia of prostate (2 sources) Benign prostatic hypertrophy with outflow obstruction 09-19-2019 Chronic Influenza (1 source) Influenza due to other identified influenza virus with other respiratory manifestations Episodic Other aftercare (2 sources) Long-term current use of anticoagulant 09-09-2019 Episodic Other screening for suspected conditions (not mental disorders or infectious disease) (4 sources) Raised prostate specific antigen 09-19-2019 Episodic Other upper respiratory disease (1 source) Nasal congestion Episodic Results Test Name Value Interpretation Reference Range Facility ED Note-Physicianon 08-07-19 ED Note-Physician [id number]#[id number] 0TIFF Normal [facility] PSA Totalon 08-07-2023 Prostate specific Ag [Mass/Vol] ng/mL Low 0.1-3.5 [facility] Comment on above: Result Comment: The concentration of PSA determined by different manufacturers can vary due to differences in assay methods and reagent specificity. Values obtained from different assay methods cannot be used interchangeably. The methodology used for this result was chemiluminescence using [email or web address] Access Hybritech PSA reagent. Performed By: #### 1 [id number] #### [facility] [address] [place] [address] Ambulatory Visit Summaryon 0 08-06-2023 Ambulatory Visit Summary JERMAINE BOSCH :1950 Visit Date:08/06/2023 Ambulatory Visit Instructions Your Diagnosis Kidney stones Personal history of prostate cancer Your Care Team Attending Physician - OVI HERBERT, Seb Talavera Primary Care Physician - SUSI JACKSON MD This Is Your Medications List Contact prescribing physician if questions or concerns amlodipine (amLODIPine 10 mg Tab) aspirin (aspirin 81 mg Chew Tab) atorvastatin (atorvastatin 80 mg Tab) famotidine (Pepcid) lisinopril (lisinopril 40 mg Tab) metoprolol (metoprolol 25 mg ER Tab) Procedures Performed Prostatectomy (10/14/2008), Transrectal biopsy of prostate using ultrasound (US) guidance (06/30/2008), Discectomy, Hemorrhoidectomy, Skin biopsy, Stent placement. Discharge Vitals Height 175 cm Height 69 in Weight 75.0 kg Weight 165 lb BMI 24.49 What to do next You Need to Schedule the Following Appointments Follow Up with OVI HERBERT, Seb Talavera, URL When: Comments: 3-4 mos w/ metabolic workup Where: [facility] [address] , [place] [address]- [phone] You Need to Complete the Following PSA Total, Blood, Routine collect, 08/06/23, Order for future visit, Lab Collect, Personal history of prostate cancer, Required & Missing, Print Label By Order Location Medications What How Much When Instructions Unchanged amlodipine (amLODIPine 10 mg Tab) 1 Tablets By Mouth Every day Contact prescribing physician if questions or concerns Unchanged aspirin (aspirin 81 mg Chew Tab) 1 Tablets Chewed Every day Contact prescribing physician if questions or concerns Unchanged atorvastatin (atorvastatin 80 mg Tab) 1 Tablets By Mouth Every day Contact prescribing physician if questions or concerns Unchanged famotidine (Pepcid) Contact prescribing physician if questions or concerns Unchanged lisinopril (lisinopril 40 mg Tab) 1 Tablets By Mouth Every day Contact prescribing physician if questions or concerns Unchanged metoprolol (metoprolol 25 mg ER Tab) 0.5 Tablets By Mouth 2 times a day Contact prescribing physician if questions or concerns Allergies sulfa drugs (Mild) Problems Ongoing - Any problem that you are currently receiving treatment for. AF (atrial fibrillation) Anticoagulant long-term use Chronic GERD Hyperlipidemia Hypertension Increasing PSA level after treatment for prostate cancer Kidney stones Male stress incontinence Personal history of prostate cancer Historical - Any problem that you are no longer receiving treatment for. Benign localized hyperplasia of prostate with urinary obstruction Elevated PSA Patient Survey You may receive a survey via text or e-mail asking about your office visit. Please share your experience with us by completing your survey. We appreciate your feedback and thank you for choosing us for your care. Education Materials Dietary Guidelines to Help Prevent Kidney Stones Kidney stones are deposits of minerals and salts that form inside your kidneys. Your risk of developing kidney stones may be greater depending on your diet, your lifestyle, the medicines you take, and whether you have certain medical conditions. Most people can lower their risks of developing kidney stones by following these dietary guidelines. Your dietitian may give you more specific instructions depending on your overall health and the type of kidney stones you tend to develop. What are tips for following this plan? Reading food labels ? Choose foods with no salt added or low-salt labels. Limit your salt (sodium) intake to less than 1,500 mg a day. ? Choose foods with calcium for each meal and snack. Try to eat about 300 mg of calcium at each meal. Foods that contain 200?500 mg of calcium a serving include: ? 8 oz (237 mL) of milk, qyyrfpe-jtflfkcdfxad-g airy milk, and calcium-fortifiedfruit juice. Calcium-fortified means that calcium has been added to these drinks. ? 8 oz (237 mL) of kefir, yogurt, and soy yogurt. ? 4 oz (114 g) of tofu. ? 1 oz (28 g) of cheese. ? 1 cup (150 g) of dried figs. ? 1 cup (91 g) of cooked broccoli. ? One 3 oz (85 g) can of sardines or mackerel. Most people need 1,000?1,500 mg of calcium a day. Talk to your dietitian about how much calcium is recommended for you. Shopping ? Buy plenty of fresh fruits and vegetables. Most people do not need to avoid fruits and vegetables, even if these foods contain nutrients that may contribute to kidney stones. ? When shopping for convenience foods, choose: ? Whole pieces of fruit. ? Pre-made salads with dressing on the side. ? Low-fat fruit and yogurt smoothies. ? Avoid buying frozen meals or prepared deli foods. These can be high in sodium. ? Look for foods with live cultures, such as yogurt and kefir. ? Choose high-fiber grains, such as whole-wheat breads, oat bran, and wheat cereals. Cooking ? Do not add salt to food when cooking (more content not included)... Normal [facility] Patient Educationon 08-06-19 Patient Education Nephrology Dietary Guidelines to Help Prevent Kidney Stones Kidney stones are deposits of minerals and salts that form inside your kidneys. Your risk of developing kidney stones may be greater depending on your diet, your lifestyle, the medicines you take, and whether you have certain medical conditions. Most people can lower their risks of developing kidney stones by following these dietary guidelines. Your dietitian may give you more specific instructions depending on your overall health and the type of kidney stones you tend to develop. What are tips for following this plan? Reading food labels ? Choose foods with no salt added or low-salt labels. Limit your salt (sodium) intake to less than 1,500 mg a day. ? Choose foods with calcium for each meal and snack. Try to eat about 300 mg of calcium at each meal. Foods that contain 200?500 mg of calcium a serving include: ? 8 oz (237 mL) of milk, awjecmi-ivocmkjtdarc-i airy milk, and calcium-fortifiedfruit juice. Calcium-fortified means that calcium has been added to these drinks. ? 8 oz (237 mL) of kefir, yogurt, and soy yogurt. ? 4 oz (114 g) of tofu. ? 1 oz (28 g) of cheese. ? 1 cup (150 g) of dried figs. ? 1 cup (91 g) of cooked broccoli. ? One 3 oz (85 g) can of sardines or mackerel. Most people need 1,000?1,500 mg of calcium a day. Talk to your dietitian about how much calcium is recommended for you. Shopping ? Buy plenty of fresh fruits and vegetables. Most people do not need to avoid fruits and vegetables, even if these foods contain nutrients that may contribute to kidney stones. ? When shopping for convenience foods, choose: ? Whole pieces of fruit. ? Pre-made salads with dressing on the side. ? Low-fat fruit and yogurt smoothies. ? Avoid buying frozen meals or prepared deli foods. These can be high in sodium. ? Look for foods with live cultures, such as yogurt and kefir. ? Choose high-fiber grains, such as whole-wheat breads, oat bran, and wheat cereals. Cooking ? Do not add salt to food when cooking. Place a salt shaker on the table and allow each person to add their own salt to taste. ? Use vegetable protein, such as beans, textured vegetable protein (TVP), or tofu, instead of meat in pasta, casseroles, and soups. Meal planning ? Eat less salt, if told by your dietitian. To do this: ? Avoid eating processed or pre-made food. ? Avoid eating fast food. ? Eat less animal protein, including cheese, meat, poultry, or fish, if told by your dietitian. To do this: ? Limit the number of times you have meat, poultry, fish, or cheese each week. Eat a diet free of meat at least 2 days a week. ? Eat only one serving each day of meat, poultry, fish, or seafood. ? When you prepare animal proteins, cut pieces into small portion sizes. For most meat and fish, one serving is about the size of the palm of your hand. ? Eat at least five servings of fresh fruits and vegetables each day. To do this: ? Keep fruits and vegetables on hand for snacks. ? Eat one piece of fruit or a handful of berries with breakfast. ? Have a salad and fruit at lunch. ? Have two kinds of vegetables at dinner. ? You may be told to limit foods that are high in a substance called oxalate. These include: ? Spinach (cooked), rhubarb, beets, sweet potatoes, and Russian chard. ? Peanuts. ? Potato chips, armenian fries, and baked potatoes with skin on. ? Nuts and nut products. ? Chocolate. ? If you regularly take a diuretic medicine, make sure to eat at least 1 or 2 servings of fruits or vegetables that are high in potassium each day. These include: ? Avocado. ? Banana. ? Blount, prune, carrot, or tomato juice. ? Baked potato. ? Cabbage. ? Beans and split peas. Lifestyle ? Drink enough fluid to keep your urine pale yellow. This is the most important thing you can do. Spread your fluid intake throughout the day. ? If you drink alcohol: ? Limit how much you have to: ? 0?1 drink a day for women who are not . ? 0?2 drinks a day for men. ? Know how much alcohol is in your drink. In the [place] one drink equals one 12 oz bottle of beer (355 mL), one 5 oz glass of wine (148 mL), or one 1? oz glass of hard liquor (44 mL). ? Lose weight if told by your health care provider. Work with your dietitian to find an eating plan and weight loss strategies that work best for you. General information ? Talk to your health care provider and dietitian about taking daily supplements. Depending on your health and the cause of your kidney stones, you may be told: ? Do not take high-dose supplements of vitamin C (1,000 mg a day or more). ? To take a calcium supplement. ? To take a daily probiotic supplement. ? To take other supplements such as magnesium, fish oil, or vitamin B6. ? Take tmxh-xhf-jkjuaxc and prescription medicines only as told by your health care provider. These include supplements. What foods sh (more content not included)... Normal [facility] Urology Office/Clinic Noteon 08-06-2023 Urology Office/Clinic Note Chief Complaint follow up to [facility] ER HPI Staff F/u to [facility] ER 04/21/23 due to right flank pain- pt. passed the stone has not had any issues since then Dx: personal hx of prostate cancer (prostatectomy 2008) and male stress incontinence. Most current PSA 08/24/21 - <0.05 Dysuria: no Incomplete bladder emptying: no Hematuria: no Frequency: no Urgency: severe Nocturia: no Stream: good stream Leaking: intermittent Post void dripping: no Wearing pads/ Depends: no Urge incontinence: mild Stress incontinence: no Incontinence without Sensory Awareness:no Abdominal pain: no Flank pain: no Sexual complaints: no History of Present Illness Tests reviewed: reviewed UA, ER notes, CT scan, KUB I have reviewed the previous health record information and history for this patient from Dr. Grande. I have reviewed and verified the staff HPI to be accurate for this encounter. Review of Systems PHQ Score Initial Depression Screen Score: 0 SCORE ROS - Provider Constitutional: denies weight loss, denies hot flashes. Eyes: denies eye problems. Gastrointestinal: denies nausea, denies vomiting. Cardiovascular: denies chest pain or angina. Integumentary: no dryness Musculoskeletal: denies musculoskeletal symptoms. ENMT: denies otolaryngeal symptoms. Respiratory: no shortness of breath. Heme/Lymph: denies easy bleeding tendency, denies easy bruising tendency. Psychiatric: no confusion, no anxiety. Genitourinary: See HPI. Physical Exam Vitals & Measurements HT: 69 in HT: 175 cm WT: 75.0 kg WT: 165 lb BMI: 24.49 General Appearance: alert, no distress, well nourished, well developed male. Genitourinary: normal scrotum, normal testes, normal urethra, normal epididymis, normal vas deferens/spermatic cord. Flank Pain: none. Bladder: nonpalpable. Assessment/Plan 1. Kidney stones (N20.0: Calculus of kidney) [facility] ER visit 04/21/23 due to sudden right flank pain. First stone episode. CT AP wo con - 3 mm R UVJ stone w/ hydro and 6mm L ureteral stone wo hydro. Multiple 2-3mm stones in both kidneys. Pt passed a stone the morning after the ER. Stone analysis 100% [place] Ca Ox. KUB 08/01/23 TBH - 6 mm calcification projecting over R mid sacrum of kidney. No L renal calcifications. Discussed imaging results, has renal stones. We discussed the etiology of kidney stone formation, including genetic predisposition, dietary factors, and different metabolism in patients. Will order 24 hour urine for analysis, as well as blood work. Follow-up will then be arranged to discuss the results and, perhaps, recommend either dietary changes or medical management. 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 Recommended pt to increase fluid intake to ten to twelve 16oz bottles a day; preferably water, clear pop, and sugar free lemonade. UA today negative for blood and infection. -Complete metabolic workup, f/u in 3-4 mos 2. Personal history of prostate cancer (Z85.46: Personal history of malignant neoplasm of prostate) S/p Prostatectomy 2008. PSA 08/16/20 - <0.05 08/24/21 - <0.05 No recent PSA. Advised pt this will need updated to ensure this remains stable. -PSA drawn IO today Follow-up With When Contact Information OVI HERBERT, Seb Talavera, URL [facility] [address], [place] [address]- [phone] Additional Instructions: 3-4 mos w/ metabolic workup Patient Education Dietary Guidelines to Help Prevent Kidney Stones I, Tania Chanel, personally scribed for Dr. Grande on 08/06/2023 15:56:07. . Documentation recorded by the scribe, Tania Chanel, accurately reflects the services(s) I performed and decisions made by me. Authenticated by Dr. Grande on 08/06/2023 15:57:47. Problem List/Past Medical History Ongoing AF (atrial fibrillation) Anticoagulant long-term use Chronic GERD Hyperlipidemia Hypertension Increasing PSA level after treatment for prostate cancer Kidney stones Male stress incontinence Personal history of prostate cancer Historical Benign localized hyperplasia of prostate with urinary obstruction Elevated PSA Procedure/Surgical History Prostatectomy (10/14/2008), Transrectal biopsy of prostate using ultrasound (US) guidance (06/30/2008), Discectomy, Hemorrhoidectomy, Skin biopsy, Stent placement. Medications amLODIPine 10 mg Tab, 10 mg= 1 tab(s), Oral, Daily aspirin 81 mg Chew Tab, 81 mg= 1 tab(s), Chewed, Daily atorvastatin 80 mg Tab, 80 mg= 1 tab(s), Oral, Daily lisinopril 40 mg Tab, 40 mg= 1 tab(s), Oral, Daily metoprolol 25 mg ER Tab, 12.5 mg= 0.5 tab(s), Oral, BID Pepcid Allergies sulfa drugs (Mild) Social History Tobacco Never (less than 100 in lifetime) Tobacco Use:., 08/06/2023 Family History Family history is negative Immunizations Vaccine Date Status Comments SARS-CoV-2 (COVID-19) mRNA BNT-162b2 vax 08/31/2020 Recorded SARS-CoV-2 (COVID-19) mRNA BNT-162b2 vax 03 (more content not included)... [facility] Comment on above: Result Comment: Elec tronically Signed By: Seb GRANDE MD\.br\Date and Time Signed: 08/06/23 15:57 EDT\.br\Electronically Co-Signed By: Tania Chanel\.br\Date and Time Co-Signed: 08/06/23 15:56 EDT RAD - MISCon 08-02-2023 RAD - MISC [id number] 0TIFF [facility] Provider Letteron 06-13-2023 Provider Letter June 13, 2023 JERMAINE BOSCH [address] [address] : 1950 Dear Jermaine , We have been trying to reach you with no success. It is important that you return our call regarding scheduling a follow up appointment with a KUB X-Ray with Dr. Seb Grande upon receiving this letter. Thank you for your prompt attention to this matter. Sincerely, [facility] [address], [place] [address] [facility] Lab Reportson 05-18-2023 Lab Reports [id number] 0TIFF [facility] Lab Reportson 05-14-2023 Lab Reports [id number]#1.0 0TIFF [facility] COVID/FLU RT-PCRon 3 SARS-CoV-2 (COVID-19) RNA MAIKEL+probe Ql (Unsp spec) Negative [employer] Other COVID/FLU RT-PCR Positive [employer] Other COVID/FLU RT-PCR Negative [employer] Other Office Visiton 12-04-2022 Follow-up visit [id number] Jermaine Bosch 1950 M Date Provider Department Center 12/04/2022 MARIE DAWKINS C[facility] Family History Problem Relation Age of Onset Coronary artery disease Mother Coronary artery disease Father Family Status - Relation Status Age at Mother Father Level of Service:90244 MT OFFICE/OUTPATIENT ESTABLISHED MOD MDM 30-39 MIN Reason for Visit and Comments: Coronary Artery Disease [187] Hypertension [796359] Hyperlipidemia [182] Normal [facility] CBC AUTO DIFFon 07-08-2021 BASO # 0.0 103/ul Normal 0.0-0.1 [facility] Comment on above: Performed By: #### C BC #### [facility] [address] [place] [address] Dr. Adalberto Sierra Basophils/100 WBC (Bld) 0.6 % Normal 0.2-2.0 [facility] Comment on above: Performed By: #### C BC #### [facility] [address] [address] [address] Adalberto Sierra EO # 0.2 103/ul Normal 0.0-0.7 [facility] Comment on above: Performed By: #### C BC #### [facility] [address] [address] [address] Adalberto Sierra Eosinophils/100 WBC (Bld) 3.0 % Normal 0.9-7.0 [facility] Comment on above: Performed By: #### C BC #### [facility] [address] [place] [address] Dr. Adalberto Sierra Erythrocyte distribution width (RBC) [Ratio] 13.4 % Normal 11.0-15.0 [facility] Comment on above: Performed By: #### C BC #### [facility] [address] [place] [address] Dr. Adalberto Sierra Hematocrit (Bld) [Volume fraction] 41.6 % Critically low 42.0-54.0 [facility] Comment on above: Performed By: #### C BC #### [facility] [address] [place] [address] Dr. Adalberto Sierra Hemoglobin (Bld) [Mass/Vol] 13.5 g/dL Critically low 14.0-18.0 [facility] Comment on above: Performed By: #### C BC #### [facility] [address] [place] [address] Dr. Adalberto Sierra IG # 0.01 10e3/ul Normal 0.00-0.03 [facility] Comment on above: Performed By: #### C BC #### [facility] [facility] [address] [place] [address] Dr. Adalberto Sierra IG % 0.2 % Normal 0.0-0.5 [facility] Comment on above: Performed By: #### C BC #### [facility] [address] [place] [address] Dr. Adalberto Sierra LYMPH # 2.0 103/ul Normal 1.2-3.[address] [facility] Comment on above: Performed By: #### C BC #### [facility] [address] [place] [address] Dr. Adalberto Sierra Lymphocytes/100 WBC (Bld) 31.9 % Normal 20.5-60.0 [facility] Comment on above: Performed By: #### C BC #### [facility] [address] [place] [address] Dr. Adalberto Sierra MANUAL DIFF REQ NO Normal [facility] Comment on above: Performed By: #### C BC #### [facility] [address] [place] [address] Dr. Adalberto Sierra MCH (RBC) [Entitic mass] 28.8 pg Normal 25.9-34.0 [facility] Comment on above: Performed By: #### C BC #### [facility] [address] [place] [address] Dr. Adalberto Sierra MCHC (RBC) [Mass/Vol] 32.5 g/dL Normal 29.9-35.[address] [facility] Comment on above: Performed By: #### C BC #### [facility] [address] [place] [address] Dr. Adalberto Sierra MCV (RBC) [Entitic vol] 88.9 fL Normal 80.0-94.[address] [facility] Comment on above: Performed By: #### C BC #### [facility] [address] [place] [address] Dr. Adalberto Sierra MONO # 0.5 103/ul Normal 0.3-0.[address] [facility] Comment on above: Performed By: #### C BC #### [facility] [address] [address] [address] Adalberto Sierra Monocytes/100 WBC (Bld) 7.2 % Normal 1.7-12.[address] [facility] Comment on above: Performed By: #### C BC #### [facility] [address] [place] [address] Dr. Adalberto Sierra NEUT # 3.6 103/ul Normal 1.4-6.[address] [facility] Comment on above: Performed By: #### C BC #### [facility] [address] [place] [address] Dr. Adalberto Sierra Neutrophils/100 WBC (Bld) 57.1 % Normal 43.0-75.[address] [facility] Comment on above: Performed By: #### C BC #### [facility] [address] [place] [address] Dr. Adalberto Sierra Platelet mean volume (Bld) [Entitic vol] 9.3 fL Critically low 9.5-13.[address] [facility] Comment on above: Performed By: #### C BC #### [facility] [address] [place] [address] Dr. Adalberto Sierra PLT 154 103/ul Normal 150-[address] [facility] Comment on above: Performed By: #### C BC #### [facility] [address] [place] [address] Dr. Adalberto Sierra RBC 4.68 106/ul Critically low 4.70-6.10 [facility] Comment on above: Performed By: #### C BC #### [facility] [address] [place] [address] Dr. Adalberto Sierra WBC 6.4 103/ul Normal 4.0-11.0 [facility] Comment on above: Performed By: #### C BC #### [facility] [address] [address] [address] Adalberto Sierra LIPID PROFILEon 07-08-2021 CHOL-HDL RATIO NORM SEE BELOW Normal [facility] Comment on above: Result Comment: 3.3 - 4.4 LOW RISK 4.4 - 7.1 AVERAGE RISK 7.1 - 11.0 MODERATE RISK >11.0 HIGH RISK Performed By: #### L IPID, CMP #### [facility] [address] [address] [address] Adalberto Sierra Cholesterol [Mass/Vol] 87 mg/dL Normal <=200 [facility] Comment on above: Performed By: #### L IPID, CMP #### [facility] [address] [address] [address] Adalberto Sierra Cholesterol in HDL [Mass/Vol] 32 mg/dL Normal [facility] Comment on above: Performed By: #### L IPID, CMP #### [facility] [address] [address] [address] Adalberto Sierra Cholesterol in LDL [Mass/Vol] 28.6 mg/dL Normal [facility] Comment on above: Performed By: #### L IPID, CMP #### [facility] [address] [address] [address] Adalberto Sierra Cholesterol.total /Cholesterol in HDL [Mass ratio] 2.7 {ratio} Normal [facility] Comment on above: Performed By: #### L IPID, CMP #### [facility] [address] [id number] Adalberto Sierra HDL NORMAL > or = 60 mg/dl - LO W CARDIOVASCULAR RISK <40 mg/dl - HIGH CARDIOVASCULAR RISK Normal [facility] Comment on above: Performed By: #### L IPID, CMP #### [facility] [address] [address] [address] Adalberto Sierra LDL CALC NORMAL SEE BELOW Normal [facility] Comment on above: Result Comment: <100 mg/dl OPTIMAL 100 - 129 mg/dl NEAR OR ABOVE OPTIMAL 130 - 159 mg/dl BORDERLINE HIGH 160 - 189 mg/dl HIGH >190 mg/dl VERY HIGH Performed By: #### L IPID, CMP #### [facility] [address] [place] [address] Dr. Adalberto Sierra Triglyceride [Mass/Vol] 132 mg/dL Normal <=150 [facility] Comment on above: Performed By: #### L IPID, CMP #### [facility] [address] [place] [address] Dr. Adalberto Sierra VLDL CALC 26.4 mg/dL Normal [facility] Comment on above: Performed By: #### L IPID, CMP #### [facility] [address] [place] [address] Dr. Adalberto Sierra PROF 14(COMP METB)on 022 Albumin [Mass/Vol] 4.0 g/dL Normal 3.5-5.0 [facility] Comment on above: Performed By: #### L IPID, CMP #### [facility] [address] [place] [address] Dr. Adalberto Sierra Albumin/Globulin [Mass ratio] 1.4 {ratio} Normal [facility] Comment on above: Performed By: #### L IPID, CMP #### [facility] [address] [place] [address] Dr. Adalberto Sierra ALP [Catalytic activity/Vol] 102 U/L Normal 38-[address] [facility] Comment on above: Performed By: #### L IPID, CMP #### [facility] [address] [place] [address] Dr. Adalberto Sierra ALT [Catalytic activity/Vol] 36 U/L Normal 21-[address] [facility] Comment on above: Performed By: #### L IPID, CMP #### [facility] [address] [place] [address] Dr. Adalberto Sierra Anion gap [Moles/Vol] 11.0 mmol/L Normal [facility] Comment on above: Performed By: #### L IPID, CMP #### [facility] [address] [place] [address] Dr. Adalberto Sierra AST [Catalytic activity/Vol] 24 U/L Normal 17-[address] [facility] Comment on above: Performed By: #### L IPID, CMP #### [facility] [address] [place] [address] Dr. Adalberto Sierra Bilirubin [Mass/Vol] 0.9 mg/dL Normal 0.2-1.[address] [facility] Comment on above: Performed By: #### L IPID, CMP #### [facility] [address] [place] [address] Dr. Adalberto Sierra Calcium [Mass/Vol] 9.3 mg/dL Normal 8.4-10.[address] [facility] Comment on above: Performed By: #### L IPID, CMP #### [facility] [address] [place] [address] Dr. Adalberto Sierra Chloride [Moles/Vol] 106 mmol/L Normal 98-[address] [facility] Comment on above: Performed By: #### L IPID, CMP #### [facility] [address] [place] [address] Dr. Adalberto Sierra CO2 [Moles/Vol] 28.0 mmol/L Normal 22.0-30.0 [facility] Comment on above: Performed By: #### L IPID, CMP #### [facility] [address] [place] [address] Dr. Adalberto Sierra Creatinine [Mass/Vol] 0.84 mg/dL Normal 0.66-1.[address] [facility] Comment on above: Performed By: #### L IPID, CMP #### [facility] [address] [place] [address] Dr. Adalberto Sierra EGFR-AF INDIAN >60 Normal >=60 [facility] Comment on above: Performed By: #### L IPID, CMP #### [facility] [address] [place] [address] Dr. Adalberto Sierra EGFR-NON AF INDIAN >60 Normal >=[address] [facility] Comment on above: Performed By: #### L IPID, CMP #### [facility] [address] [place] [address] Dr. Adalberto Sierra Globulin (S) [Mass/Vol] 2.8 g/dL Normal [facility] Comment on above: Performed By: #### L IPID, CMP #### [facility] [address] [place] [address] Dr. Adalberto Sierra Glucose [Mass/Vol] 101 mg/dL Normal 74-106 [facility] Comment on above: Performed By: #### L IPID, CMP #### [facility] [address] [place] [address] Dr. Adalberto Sierra Potassium [Moles/Vol] 4.0 mmol/L Normal 3.4-5.0 [facility] Comment on above: Performed By: #### L IPID, CMP #### [facility] [address] [place] [address] Dr. Adalberto Sierra Protein [Mass/Vol] 6.8 g/dL Normal 6.1-8.2 [facility] Comment on above: Performed By: #### L IPID, CMP #### [facility] [address] [place] [address] Dr. Adalberto Sierra Sodium [Moles/Vol] 141 mmol/L Normal 137-145 [facility] Comment on above: Performed By: #### L IPID, CMP #### [facility] [address] [place] [address] Dr. Adalberto Sierra Urea nitrogen [Mass/Vol] 12.0 mg/dL Normal 9.0-20.0 [facility] Comment on above: Performed By: #### L IPID, CMP #### [facility] [address] [place] [address] Dr. Adalberto Sierra Urea nitrogen/Creatini ne [Mass ratio] 14.3 mg/mg Normal [facility] Comment on above: Performed By: #### L IPID, CMP #### [facility] [address] [place] [address] Dr. Adalberto Sierra Vital Signs Date Time Vital Sign Value Performing Clinician Facility 05-04-2023 09:50-0500 Body height 175.26 cm Telma Mcdonald Other [facility] Other 05-04-2023 09:50-0500 Body mass index (BMI) [Ratio] 25.34 kg/m2 Telma Mcdonald Other [facility] Other 05-04-2023 09:50-0500 Body temperature 99.6 [degF] Telma Mcdonald Other [facility] Other 05-04-2023 09:50-0500 Body weight 77.84 kg Telma Mcdonald Other [facility] Other 05-04-2023 09:50-0500 Diastolic blood pressure 80 mm[Hg] Telma Hollidaymond Other [facility] [employer] Other 05-04-2023 09:50-0500 Respiratory rate 18 /min Telma Hollidaymond Other [facility] Other 05-04-2023 09:50-0500 SaO2% (BldA) [Mass fraction] 96 % Telma Mcdonald Other [facility] Other 05-04-2023 09:50-0500 Systolic blood pressure 134 mm[Hg] Telma Hollidaymond Other [facility] Other Encounters Encounter Date Encounter Type Care Provider Facility Start: 08-06-2023 End: 08-07-2023 ambulatory Seb GRANDE Facility:[facility] Start: 08-06-2023 End: 08-06-2023 Lab Drop off Seb GRANDE [facility] Start: 08-06-2023 End: 08-07-2023 ambulatory Seb GRANDE Facility: [place] Start: 08-06-2023 End: 08-06-2023 Patient encounter procedure Seb GRANDE [facility] Start: 05-04-2023 End: 05-04-2023 ambulatory Telma Mcdonald Other [facility] Other Start: 05-04-2023 Office outpatient ne w 20 minutes Telma Mcdonald [facility] Start: 12-04-2022 End: 12-04-2022 ambulatory [facility] Start: 08-24-2021 End: 08-25-[address] SUSI JACKSON Facility:[facility] Start: 07-08-2021 End: 07-09-2021 ambulatory SHANIQUA XIAO Facility:[facility] Procedures Date Procedure Procedure Detail Performing Clinician Start: 08-24-[address] SUSI BURDICK Comment on above: Performed By: #### P SAD #### [facility] [address] [place] [address] Dr. Adalberto Sierra Start: 10-14-2008 Prostatectomy Seb ARCE Start: 06-30-2008 Transrectal biopsy o f prostate using ultrasound guidance Seb GRANDE Biopsy of skin Seb Harden Discectomy of spine Seb GRANDE Hemorrhoidectomy Seb RAMIREZ Placement of stent Seb ARCE Plan of Treatment Date Care Activity Detail Author Start: 11-23-2023 ambulatory Ambulatory Facility:[facility] Immunizations Immunization Date Immunization Notes Care Provider Sruthi watt 08-31-2020 SARS-CoV-2 (COVID-19 ) mRNA BNT-162b2 vax Seb GRANDE [facility] 08-10-2020 SARS-CoV-2 (COVID-19 ) mRNA BNT-162b2 vax Seb GRANDE [facility] Comment on above: Result Comment: 2023: [id number] 03-25-2020 influenza virus vaccine, unspecified formulation Seb GRANDE [facility] 03-08-2020 influenza virus vaccine, unspecified formulation Seb GRANDE [facility] Payers Date Payer Category Payer Medicare [id number] 1960 Unknown [id number] 1950 Unknown [id number] 1950 Unknown [id number] [id number] 1950 Unknown [id number] [id number] 1950 Unknown [id number] [id number] 1950 Unknown [id number] [id number] Social History Date Type Detail Facility Unknown if ever smoked [employer] Other Sex Assigned At [facility] Start: 08-06-2023 Tobacco smoking status Never s moked tobacco (finding) [facility] Functional Status Date Assessment Result Facility 08-06-2023 Functional Status N/A [facility] Hospital Discharge instructions 08-06-2023 Note Date & Type Note Facility 08-06-2023 Hospital Discharg e instructions Patient Education 08/06/2023 15:55:34 Dietary Guidelines to Help Prevent Kidney Stones Dietary Guidelines to Help Prevent Kidney Stones Kidney stones are deposits of minerals and salts that form inside your kidneys. Your risk of developing kidney stones may be greater depending on your diet, your lifestyle, the medicines you take, and whether you have certain medical conditions. Most people can lower their risks of developing kidney stones by following these dietary guidelines. Your dietitian may give you more specific instructions depending on your overall health and the type of kidney stones you tend to develop. What are tips for following this plan? Reading food labels Choose foods with no salt added or low-salt labels. Limit your salt (sodium) intake to less than 1,500 mg a day. Choose foods with calcium for each meal and snack. Try to eat about 300 mg of calcium at each meal. Foods that contain 200 500 mg of calcium a serving include: ?8 oz (237 mL) of milk, nxuwqio-zuqgbhxuqtde-ciumf milk, and calcium-fortifiedfruit juice. Calcium-fortified means that calcium has been added to these drinks. ?8 oz (237 mL) of kefir, yogurt, and soy yogurt. ?4 oz (114 g) of tofu. ?1 oz (28 g) of cheese. ?1 cup (150 g) of dried figs. ?1 cup (91 g) of cooked broccoli. ?One 3 oz (85 g) can of sardines or mackerel. Most people need 1,000 1,500 mg of calcium a day. Talk to your dietitian about how much calcium is recommended for you. Shopping Buy plenty of fresh fruits and vegetables. Most people do not need to avoid fruits and vegetables, even if these foods contain nutrients that may contribute to kidney stones. When shopping for convenience foods, choose: ?Whole pieces of fruit. ?Pre-made salads with dressing on the side. ?Low-fat fruit and yogurt smoothies. Avoid buying frozen meals or prepared deli foods. These can be high in sodium. Look for foods with live cultures, such as yogurt and kefir. Choose high-fiber grains, such as whole-wheat breads, oat bran, and wheat cereals. Cooking Do not add salt to food when cooking. Place a salt shaker on the table and allow each person to add their own salt to taste. Use vegetable protein, such as beans, textured vegetable protein (TVP), or tofu, instead of meat in pasta, casseroles, and soups. Meal planning Eat less salt, if told by your dietitian. To do this: ?Avoid eating processed or pre-made food. ?Avoid eating fast food. Eat less animal protein, including cheese, meat, poultry, or fish, if told by your dietitian. To do this: ?Limit the number of times you have meat, poultry, fish, or cheese each week. Eat a diet free of meat at least 2 days a week. ?Eat only one serving each day of meat, poultry, fish, or seafood. ?When you prepare animal proteins, cut pieces into small portion sizes. For most meat and fish, one serving is about the size of the palm of your hand. Eat at least five servings of fresh fruits and vegetables each day. To do this: ?Keep fruits and vegetables on hand for snacks. ?Eat one piece of fruit or a handful of berries with breakfast. ?Have a salad and fruit at lunch. ?Have two kinds of vegetables at dinner. You may be told to limit foods that are high in a substance called oxalate. These include: ?Spinach (cooked), rhubarb, beets, sweet potatoes, and Russian chard. ?Peanuts. ?Potato chips, armenian fries, and baked potatoes with skin on. ?Nuts and nut products. ?Chocolate. If you regularly take a diuretic medicine, make sure to eat at least 1 or 2 servings of fruits or vegetables that are high in potassium each day. These include: ?Avocado. ?Banana. ?Blount, prune, carrot, or tomato juice. ?Baked potato. ?Cabbage. ?Beans and split peas. Lifestyle Drink enough fluid to keep your urine pale yellow. This is the most important thing you can do. Spread your fluid intake throughout the day. If you drink alcohol: ?Limit how much you have to: ?0 1 drink a day for women who are not . ?0 2 drinks a day for men. ?Know how much alcohol is in your drink. In the [place] one drink equals one 12 oz bottle of beer (355 mL), one 5 oz glass of wine (148 mL), or one 1 oz glass of hard liquor (44 mL). Lose weight if told by your health care provider. Work with your dietitian to find an eating plan and weight loss strategies that work best for you. General information Talk to your health care provider and dietitian about taking daily supplements. Depending on your health and the cause of your kidney stones, you may be told: ?Do not take high-dose supplements of vitamin C (1,000 mg a day or more). ?To take a calcium supplement. ?To take a daily probiotic supplement. ?To take other supplements such as magnesium, fish oil, or vitamin B6. Take husw-hsx-cfiffbp and prescription medicines only as told by your health care provider. These include supplements. What foods should I limit? Limit your intake of the following foods, or eat them as told by your dietitian. Vegetables Spinach. Rhubarb. Beets. Canned vegetables. Pickles. Olives. Baked potatoes with skin. Grains Wheat bran. Baked goods. Salted crackers. Cereals high in sugar. Meats and other proteins Nuts. Nut butters. Large portions of meat, poultry, or fish. Salted, precooked, or cured meats, such as sausages, meat loaves, and hot dogs. Dairy Cheeses. Beverages Regular soft drinks. Regular vegetable juice. Seasonings and condiments Seasoning blends with salt. Salad dressings. Soy sauce. Ketchup. Barbecue sauce. Other foods Canned soups. Canned pasta sauce. Casseroles. Pizza. Lasagna. Frozen meals. Potato chips. North Korean fries. The items listed above may not be a complete list of foods and beverages you should limit. Contact a dietitian for more information. What foods should I avoid? Talk to your dietitian about specific foods you should avoid based on the type of kidney stones you have and your overall health. Fruits Grapefruit. The item listed above may not be a complete list of foods and beverages you should avoid. Contact a dietitian for more information. Summary Kidney stones are deposits of minerals and salts that form inside your kidneys. You can lower your risk of kidney stones by making changes to your diet. The most important thing you can do is drink enough fluid. Drink enough fluid to keep your urine pale yellow. Talk to your dietitian about how much calcium you should have each day, and eat less salt and animal protein as told by your dietitian. This information is not intended to replace advice given to you by your health care provider. Make sure you discuss any questions you have with your health care provider. Document Revised: 08/24/2022 Document Reviewed: 08/24/2022 [employer] Patient Education 2022 [employer]. Follow Up Care 06/13/2023 15:35:42 With:OVI HERBERT, Seb Talavera, URL Address: [facility] [address], [place] [address] [phone] When: Unknown Comments:3-4 mos w/ metabolic workup [facility] Evaluation note 05-04-2023 Note Date & Type [...] no improvement in 2 to 3 days [employer] Other Progress note 12-04-2022 Note Date & Type Note Facility 12-04-2022 Note [facility] Subjective Jermaine Boshc is a 72 y.o. year old male [...] with Lyme disease after a trip to [place] in December 2013. He was treated. In [...] for this visit: Coronary artery disease involving [place] coronary artery of [place] heart without angina pectoris - Lipid panel; [...] about 1 ye (more content not included)... [facility] Evaluation + Plan note Laboratory Note Date & Type Note Facility Evaluation + Plan note Future Appointments Appointment Date:11/23/2023 08:45:00 AM Scheduled Provider:Seb GRANDE MD Location:[facility] Appointment Type:URO Office Visit Future Scheduled TestsPSA Total 08/06/23 [facility] Evaluation + Plan note Laboratory Note Date & Type Note Facility Evaluation + Plan note Future Appointments Appointment Date:11/23/2023 08:45:00 AM Scheduled Provider:Seb GRANDE MD Location:[facility] Appointment Type:URO Office Visit Diagnostic Tests PendingPSA Total 08/06/23 Future Scheduled TestsPSA Total 08/06/23 [facility] History general Narrative - Reported Note Date & Type Note Facility History general Narrative - Reported Type Medical History HTN (hypertension) Medical History Hypercholesterolemia Medical History Heart disease Surgical History Neck Surgery Surgical History prostatectomy Surgical History cancer Surgical History hemorrhoidectomy Surgical History cardiac stent Hospitalization History see above [employer] Other Hospital course Narrative Note Date & Type Note Facility Hospital course Narrative No data available for this section [facility] Hospital Discharge instructions Note Date & Type Note Facility Hospital Discharge instructions No data available for this section [facility] Progress note Note Date & Type Note Facility Progress note No data available for this section [facility] Summary Purpose Family History No Family History Records FoundNo Family History Records Found No data available for this section No data available for this section No Family History Records Found Advance Directives No Advanced Directives Records FoundNo Advanced Directives Records FoundNo Advanced Directives Records Found Additional Source Comments (unrecognized sect ion and content) No Status Records FoundNo Status Records FoundNo Status Records Found INFORMATION SOURCE (unrecogn ized section and content) DATE CREATED AUTHOR 08/29/2021 [facility] DATE CREATED AUTHOR AUTHOR'S ORGANIZ ATION 12/04/2022 [facility] DATE CREATED AUTHOR AUTHOR'S ORGANIZ ATION 08/09/2023 [facility] REASON FOR VISIT (unrecogniz ed section and content) SINUS CONGESTION, COUGH, EXP OSURE TO INFLUENZA Patient Care team informatio n (unrecognized section and content) Personnel Name: SUSI JACKSON MD Address: Address: [address] [place], [place] [address] [place] [id number] Personnel Name: SUSI JACKSON MD Address: Address: [facility] [place] [address] FOR RECORDS PERTAINING TO PATIENTS WHO ARE [...] BE BASED ON THE PRIMARY CLINICAL RECORDS. [employer] [facility]. provides no warranty or guarantee of the accuracy or completeness of information in this document.
[2023-09-07 09:29] LABS: Calcium 9.2 mg/dL (8.5-10.1); Carbon Dioxide 27.2 mmol/L (21.0-32.0); Chloride 105 mmol/L (98-107); Estimated GFR (African America >60 (>=60); Estimated GFR (Non-African Ame >60 (>=60); Phosphorus 3.1 mg/dL (2.6-4.7); Sodium 142 mmol/L (136-145); Uric Acid 5.5 mg/dL (3.5-7.2)
[2023-09-07 14:57] LABS: Calcium Urine Random 5.7 mg/dL (5.1-21.0); Creatinine Urine Random 80.69 mg/dL (20.00-300.00); Sodium Urine Random 112 mmol/L (30-90)
[2023-09-07 14:59] LABS: Calcium 24 Hour Urine 101.2 mg/24hr (100.0-300.0); Creatinine 24 Hour Urine 1432.25 mg/24 hr (1000.0-2000.00); Sodium 24 Hour Urine 199 mmol/24h (40-220); Total Volume 24 Hour Urine 1775 mL/24hr
[2023-09-08 04:07] LABS: Magnesium, U 8.1 mg/dL (Not Estab.); Magnesium,Urine 24hr 143.8 mg/24 hr (12.0-293.0); Phosphorus,Urine 24h 763 mg/24 hr (390-1425); Uric Acid, Urine 34.3 mg/dL (Not Estab.); Uric Acid,Urine 24hr 608.8 mg/24 hr (136.1-771.1)
[2023-09-09 11:07] LABS: PTH, Intact 28 pg/mL (15-65)
[2023-09-10 16:09] LABS: Citric Acid, U, 24hr 774 mg/24 hr (320-1240); Citric Acid, Urine 436 mg/L (Undefined)
[2023-09-12 17:08] LABS: Oxalates, Urine 13 mg/L (Undefined); Oxalates, Urine 24hr 23 mg/24 hr (7-44)
== END 2023-09-07 08:52 | disposition home or self-care (01) ==
LOC: LAB 08:51
PROVIDERS: PCP Family Medicine; Visit Provider Urology
DX: N20.0 Calculus of kidney (principal)
CPT/HCPCS: 36415; 81050; 82310; 82340; 82374; 82435; 82507; 82565; 82570; 83735; 83945; 83970; 84100; 84105; 84295; 84300; 84520; 84550; 84560

== ENCOUNTER 2023-12-03 08:19 | Outpatient (OUT) | payer MEDICARE, SELFPAY ==
--- OUTSIDE RECORDS SUMMARY | 2023-12-03 08:05 | XMS_ITS | CCD ---
Author Organization [facility] Care Team Providers Care Automatic Cigar Wrapper Tender Name Role Phone DR SUSI JACKSON Primary Care Unavailable OVI, DR SEVILLA Consulting Unavailable OVI, DR SEVILLA Attending Unavailable OVI, DR SEVILLA Admitting Unavailable SHANIQUA XIAO Consulting Unavailable RENETTA, DR SUSI Hernandez Primary Care Unavailable SHANIQUA XIAO Attending Unavailable SHANIQUA XIAO Admitting Unavailable MARIE ISAACS Attending Unavailable Telma Mcdonald Unavailable SUSI JACKSON Primary Care Physician Seb GRANDE Attending Unavailable Seb GRANDE Attending Unavailable GRANDE, Seb Talavera Attending Unavailable GRANDESeb Attending Unavailable Seb GRANDE Admitting Unavailable Allergies Allergy Classification Reported Allergen(s) Allergy Type Date of Onset Reaction(s) Facility (1 source) Sulfonamides (Antibiotic) Drug allergy (disorder) 9 [facility] Repository (1 source) ALLERGIES NOT ON FILE; Translations: [ALLERGIES NOT ON FILE] Propensity to adverse reactions (disorder) [facility] Repository (4 sources) Sulfonamides (Antibiotic); Translations: [sulfa drugs] Drug allergy Mild (qualifier value) [facility] (1 source) No Known Medication Allergies; Translations: [No Known Medication Allergies] Propensity to adverse reactions (disorder) [facility] Repository Medications Current Medications Medication Drug Class(es) Dates Sig (Normalized) Sig (Original) amLODIPine 10 mg oral tablet (4 sources) Dihydropyridine Calcium Channel Noel Start: 09-09-2019 take 1 tablet by mouth once daily amLODIPine 10 mg Tab 10 mg = 1 tab(s), Oral, Daily Start Date: 09/09/19 Status: Ordered Aspir-81 81 MG (1 source) Aspir-81 81 MG Orally Active aspirin 81 mg chewable tablet (3 sources) Platelet Aggregation Inhibitor, Nonsteroidal Anti-inflammatory Drug Start: 09-09-2019 aspirin 81 mg Chew Tab 81 mg = 1 tab(s), Chewed, Daily Start Date: 09/09/19 Status: Ordered atorvastatin 80 mg oral tablet (5 sources) HMG-CoA Reductase Inhibitor Start: 09-09-2019 take [...] Histamine-2 Receptor Antagonist Pepcid Complete Active Pepcid (3 sources) Histamine-2 Receptor Antagonist Start: 09-19-2019 Pepcid Refills(s) 0 Start Date: 09/19/19 Status: Ordered lisinopril 40 mg oral tablet (5 sources) Angiotensin Converting Enzyme Inhibitor Start: 09-09-2019 take 1 tablet by mouth once daily lisinopril 40 mg Tab 40 mg = 1 tab(s), Oral, Daily Start Date: 09/09/19 Status: Ordered Prinivil 20 MG O rally Not-Taking/PRN 24 hr metoprolol succinate 25 mg extended release oral tablet (5 sources) beta-Adrenergic Noel Start: 09-09-2019 metopr olol [...] Documented Date Episodic/Chronic Calculus of urinary tract (7 sources) Kidney stone; Translations: [Calculus of kidney] Onset: 08-06-2023 Episodic Cancer of prostate (9 sources) Personal history of malignant neoplasm of prostate; Translations: [History of malignant neoplasm of prostate] Onset: 08-24-2021 Episodic Cardiac dysrhythmias (3 sources) Atrial fibrillation 09-09-2019 Chronic Coronary atherosclerosis and other heart disease (6 sources) Atherosclerotic heart disease of tribe coronary artery without angina pectoris; Translations: [ASHD [place] CA W/O ANGINA PECTORIS] Onset: 07-08-2021 Chronic Coronary atherosclerosis and other heart disease (2 sources) Presence of coronary angioplasty implant and graft; Translations: [Presence of coronary angioplasty implant and graft] Onset: 12-04-2022 Episodic Disorders of lipid metabolism (5 sources) Mixed hyperlipidemia; Translations: [Hyperlipidemia] Onset: 03-01-2022 Chronic Esophageal disorders (3 sources) Gastroesophageal reflux disease 09-09-2019 Chronic Essential hypertension (5 sources) Essential (primary) hypertension; Translations: [Hypertensive disorder] Onset: 12-04-2022 Chronic Genitourinary symptoms and ill-defined conditions (4 sources) Stress incontinence (female) (male); Translations: [Male urinary stress incontinence] Onset: 08-26-2021 09-09-2019 Chronic Hyperplasia of prostate (3 sources) Benign prostatic hypertrophy with outflow obstruction 09-19-2019 Chronic Influenza (1 source) Influenza due to other identified influenza virus with other respiratory manifestations Episodic Other aftercare (3 sources) Long-term current use of anticoagulant 09-09-2019 Episodic Other screening for suspected conditions (not mental disorders or infectious disease) (6 sources) Raised prostate specific antigen 09-19-2019 Episodic Other upper respiratory disease (1 source) Nasal congestion Episodic Results Test Name Value Interpretation Reference Range Facility Ambulatory Visit Summaryon 0 11-23-2023 Ambulatory Visit Summary Ambulatory Visit Summary JERMAINE BOSCH Analy :1950 Visit Date:11/23/2023 Ambulatory Visit Instructions Your Diagnosis Ureteral stone Kidney stones Personal history of prostate cancer Tests Performed XR Abdomen 1 View -- Results Pending -- XR IVP -- Results Pending -- Please visit your patient portal for your results or contact your primary care physician. Your Care Team Attending Physician - Seb GRANDE MD Primary Care Physician - SUSI JACKSON MD [...] Hemorrhoidectomy, Skin biopsy, Stent placement. Discharge Vitals Heart Rate (Peripheral) 67 Respiratory Rate 16 Blood Pressure 131/64 Height 175 cm Height 69 in Weight 75 kg Weight 165 lb BMI 24.49 What to do next You Need to Schedule the Following Appointments Follow Up with OVI HERBERT, Seb Talavera, URL When: Where: [address] [place] [address]- Medications What How Much When Instructions Unchanged [...] stress incontinence Personal history of prostate cancer Ureteral stone Historical - Any problem that you are [...] ? 8 oz (237 mL) of milk, heziqao-pffnggbzliyp-k airy milk, and calcium-fortifiedfruit juice. Calcium-fortified means [...] whole-wheat breads, oat bran, and wheat cereals. Co (more content not included)... Normal [facility] Urology Office/Clinic Noteon 11-23-2023 Urology Office/Clinic Note Urology Office/Clinic Note Chief Complaint 3m Metabolic Work Up HPI Staff 3.5m Metabolic Work Up DX: Kidney Stone & Personal Hx of Prostate Cancer S/P Prostatectomy in 2008. *No Urology Meds Last PSA 08/06/23- <0.1 Metabolic Work Up completed 09/07/23 * Increased Na level. All other results WNL Denies flank pain. Denies urinary sx. No concerns at this time. History of Present Illness Tests reviewed: reviewed UA and PSA. I have reviewed the previous health record information and history for this patient from Dr. Grande. I have reviewed and verified the staff HPI to be accurate for this encounter. There have been no associated fever, chills, flank pain, or blood in the urine. Denies any urinary infections since last encounter. Review of Systems PHQ Score Initial [...] See HPI. Physical Exam Vitals & Measurements HR: 67(Peripheral) RR: 16 BP: 131/64 HT: 69 in HT: 175 cm WT: 75 kg WT: 165 lb BMI: 24.49 General Appearance: alert, no distress, well nourished, well developed male. Assessment/Plan 1. Ureteral stone (N20.1: Calculus of ureter) [facility] ER visit 04/21/23 due to sudden right flank pain. First stone episode. CT AP wo con 03/2023 - 3 mm R UVJ stone w/ hydro and 6mm L ureteral stone wo hydro. Multiple 2-3mm stones in both kidneys. Pt passed a stone the morning after the ER. Stone analysis 100% [place] Ca Ox. KUB 08/01/23 TBH - 6 mm calcification projecting over R mid sacrum of kidney, possible R mid ureterolith. No L renal calcifications. Metabolic workup completed 09/07/23. Total volume 1775 L. High urine sodium 112 (30-90) otherwise normal. Results reviewed with pt. Pt to decrease sodium in diet and to increase water intake. 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 Reports he does not add salt to his food. Given possible ureteral stone on KUB from July, will order IVP. Denies pain. UA today neg for hematuria. Stone may require surgical management if still present. -90 oz of water daily with added lemon -IVP now -KUB in 12 mos 2. Kidney stones (N20.0: Calculus of kidney) See #1. 3. Personal history of prostate cancer (Z85.46: Personal history of malignant neoplasm of prostate) PSA: 08/16/20 - <0.05 08/24/21 - <0.05 08/06/23 - <0.1 S/p prostatectomy 2008. TRUS/bx 06/30/2008. Path HGPIN. Glenn 6 (3+3) Perineural invasion not seen. -Will cont to monitor PSA -PSA in 12 mos Follow-up With When Contact Information OVI HERBERT, Seb Talavera, URL [address] [place] [address]- Additional Instructions: IVP now & 1 year w/ PSA and KUB Patient Education Dietary Guidelines to Help Prevent Kidney Stones I, Nora Aly, personally scribed for Dr. Grande on 11/23/2023 09:42:14. . Documentation recorded by the scribe, Nora Aly, accurately reflects the services(s) I performed and decisions made by me. Authenticated by Dr. Grande on 11/23/2023 09:43:48. Problem List/Past Medical History Ongoing AF (atrial fibrillation) Anticoagulant long-term use Chronic GERD Hyperlipidemia Hypertension Increasing PSA level after treatment for prostate cancer Kidney stones Male stress incontinence Personal history of prostate cancer Ureteral stone Historical Benign localized hyperplasia of prostate with [...] Never (less than 100 in lifetime) Tobacco Use:. Never Smokeless Tobacco Use:., 11/23/2023 Family History Family history is negative Immunizations Vaccine Date Status Comments SARS-CoV-2 (COVID-19) mRNA BNT-162b2 vax 08/31/2020 Recorded SARS-CoV-2 (COVID-19) mRNA BNT-162b2 vax 08/10/2020 Recorded 2023-08-06: TPV70 influenza virus vaccine, inactivated 03/25/2020 Recorded influenza virus vaccine, inactivated 03/08/2020 Recorded Lab Results Test Name Test Result (more content not included)... [facility] Comment on above: Result Comment: Elec tronically Signed By: Seb GRANDE MD\.br\Date and Time Signed: 11/23/23 09:43 EDT\.br\Electronically Co-Signed By: Nora Aly.br\Date and Time Co-Signed: 11/23/23 09:42 EDT Lab Reportson 09-18-2023 Lab Reports [id number]#1.0 0TIFF [facility] Lab Reportson 09-12-2023 Lab Reports [id number]#1.0 0TIFF [facility] Lab Reportson 09-10-2023 Lab Reports [id number]#1.0 0TIFF [facility] Lab Reports [id number]#1.0 0TIFF [facility] Lab Reports [id number]#1.0 0TIFF Normal [facility] ED Note-Physicianon 08-07-19 ED Note-Physician [id number]#1.0 0TIFF Normal [facility] PSA Totalon 08-07-2023 Prostate specific Ag [Mass/Vol] ng/mL Low 0.1-3.5 [facility] Comment on above: Result Comment: The concentration of PSA determined by different manufacturers can vary due to differences in assay methods and reagent specificity. Values obtained from different assay methods cannot be used interchangeably. The methodology used for this result was chemiluminescence using [employer]'s [employer] Hybritech PSA reagent. Performed By: #### 1 [id number] ####[facility] [address] [place] [address] Ambulatory Visit Summaryon 0 08-06-2023 Ambulatory Visit [...] metabolic workup Where: [facility] [address], [place] [address]- [phone] You Need to Complete the Following PSA [...] ? 8 oz (237 mL) of milk, zgyrdgq-huwtnoszrjgb-j airy milk, and calcium-fortifiedfruit juice. Calcium-fortified means [...] when cooking (more content not included)... Normal [facility] Patient Educationon 08-06-19 Patient Education Nephrology Dietary [...] ? 8 oz (237 mL) of milk, vaubmyw-nlvblxcfmplo-e airy milk, and calcium-fortifiedfruit juice. Calcium-fortified means [...] Spinach (cooked), rhubarb, beets, sweet potatoes, and Northern Irish chard. ? Peanuts. ? Potato chips, congolese fries, and baked potatoes with skin on. ? Nuts and nut products. ? Chocolate. ? If you regularly take a diuretic medicine, make sure to eat at least 1 or 2 servings of fruits or vegetables that are high in potassium each day. These include: ? Avocado. ? Banana. ? [place], prune, carrot, or tomato juice. ? Baked [...] fish oil, or vitamin B6. ? Take dasl-wbb-yhkapnl and prescription medicines only as told by your health care provider. These include supplements. What foods sh (more content not included)... Normal [facility] Urology Office/Clinic Noteon 08-06-2023 Urology Office/Clinic Note Chief Complaint follow up to [facility] ER HPI Staff F/u to [facility] ER 04/21/23 due to right flank pain- [...] 1. Kidney stones (N20.0: Calculus of kidney) [facility] ER visit 04/21/23 due to sudden right flank pain. First stone episode. CT AP wo con - 3 mm R UVJ stone w/ hydro and 6mm L ureteral stone wo hydro. Multiple 2-3mm stones in both kidneys. Pt passed a stone the morning after the ER. Stone analysis 100% [place] Ca Ox. KUB 03/06/24 TBH - 6 mm calcification projecting over [...] URL [facility] [address], [place] [address]- [phone] Additional Instructions: 3-4 mos w/ metabolic workup Patient Education Dietary Guidelines to Help Prevent Kidney Stones ITania, personally scribed for Dr. Grande on 08/06/2023 [...] BNT-162b2 vax 03 (more content not included)... [facility] Comment on above: Result Comment: Elec tronically Signed By: Seb GRANDE MD\.br\Date and Time Signed: 08/06/23 15:57 EDT\.br\Electronically Co-Signed By: Tania Chanel\.br\Date and Time Co-Signed: 08/06/23 15:56 EDT RAD - MISCon 08-02-2023 RAD - MISC [id number]#1.0 0TIFF [facility] Provider Letteron 06-13-2023 Provider Letter June 13, 2023 JERMAINE BOSCH [address] [address] : 1950 Dear Jermaine , We have been trying to reach you with no success. It is important that you return our call regarding scheduling a follow up appointment with a KUB X-Ray with Dr. Seb Grande upon receiving this letter. Thank you for your prompt attention to this matter. Sincerely, [facility] [address] [facility], [place] [address] [facility] Lab Reportson 05-18-2023 Lab Reports [id number]#1.0 0TIFF [facility] Lab Reportson 05-13-2023 Lab Reports [id number]#1.0 0TIFF Normal [facility] COVID/FLU RT-PCRon 3 SARS-CoV-2 (COVID-19) RNA MAIKEL+probe Ql (Unsp spec) Negative Screamin [employer] Other COVID/FLU RT-PCR Positive [place] Other COVID/FLU RT-PCR Negative [place] Other Office Visiton 12-04-2022 Follow-up visit [id number] Jermaine Bosch Analy 1950 M Date Provider Department Center 12/04/2022 MARIE DAWKINS PINA [facility] Family History Problem Relation Age of Onset Coronary artery disease Mother Coronary artery disease Father Family Status - Relation Status Age at Mother Father Level of Service:[address]32 [place] OFFICE/OUTPATIENT ESTABLISHED MOD MDM 30-39 MIN Reason for Visit and Comments: Coronary Artery Disease [187] Hypertension [652703] Hyperlipidemia [182] Normal [facility] CBC AUTO DIFFon 07-08-2021 BASO # 0.0 103/ul Normal 0.0-0.1 [facility] Comment on above: Performed By: #### C BC #### [facility] [address] [place] [address] Dr. Adalberto Sierra Basophils/100 WBC (Bld) 0.6 % Normal 0.2-2.0 [facility] Comment on above: Performed By: #### C BC #### [facility] [address] [place] [address] Dr. Adalberto Sierra EO # 0.2 103/ul Normal 0.0-0.7 [facility] Comment on above: Performed By: #### C BC #### [facility] [address] [place] [address] Dr. Adalberto Sierra Eosinophils/100 WBC (Bld) 3.0 % Normal 0.9-7.0 [facility] Comment on above: Performed By: #### C BC #### [facility] [address] [place] [address] Dr. Adalberto Sierra Erythrocyte distribution width (RBC) [Ratio] 13.4 % Normal 11.0-15.0 [facility] Comment on above: Performed By: #### C BC #### [facility] [address] [place] [address] Dr. Adalberto Sierra Hematocrit (Bld) [Volume fraction] 41.6 % Critically low 42.0-54.0 [facility] Comment on above: Performed By: #### C BC #### [facility] [address] [place] [address] Dr. Adalberto Sierra Hemoglobin (Bld) [Mass/Vol] 13.5 g/dL Critically low 14.0-18.0 [facility] Comment on above: Performed By: #### C BC #### [facility] [address] [place] [address] Dr. Adalberto Sierra IG # 0.01 10e3/ul Normal 0.00-0.03 [facility] Comment on above: Performed By: #### C BC #### [facility] [address] [place] [address] Dr. Adalberto Sierra IG % 0.2 % Normal 0.0-0.5 [facility] Comment on above: Performed By: #### C BC #### [facility] [address] [place] [address] Dr. Adalberto Sierra LYMPH # 2.0 103/ul Normal 1.2-3.8 [facility] Comment on above: Performed By: #### C BC #### [facility] [address] [place] [address] Dr. Adalberto Sierra Lymphocytes/100 WBC (Bld) 31.9 % Normal 20.5-60.0 [facility] Comment on above: Performed By: #### C BC #### [facility] [address] [place] [address] Dr. Adalberto Sierra MANUAL DIFF REQ NO Normal [facility] Comment on above: Performed By: #### C BC #### [facility] [address] [place] [address] Dr. Adalberto Sierra MCH (RBC) [Entitic mass] 28.8 pg Normal 25.9-34.0 [facility] Comment on above: Performed By: #### C BC #### [facility] [address] [place] [address] Dr. Adalberto Sierra MCHC (RBC) [Mass/Vol] 32.5 g/dL Normal 29.9-35.2 [facility] Comment on above: Performed By: #### C BC #### [facility] [address] [place] [address] Dr. Adalberto Sierra MCV (RBC) [Entitic vol] 88.9 fL Normal 80.0-94.0 [facility] Comment on above: Performed By: #### C BC #### [facility] [address] [place] [address] Dr. Adalberto Sierra MONO # 0.5 103/ul Normal 0.3-0.8 [facility] Comment on above: Performed By: #### C BC #### [facility] [address] [place] [address] Dr. Adalberto Sierra Monocytes/100 WBC (Bld) 7.2 % Normal 1.7-12.0 [facility] Comment on above: Performed By: #### C BC #### [facility] [address] [place] [address] Dr. Adalberto Sierra NEUT # 3.6 103/ul Normal 1.4-6.5 [facility] Comment on above: Performed By: #### C BC #### [facility] [address] [place] [address] Dr. Adalberto Sierra Neutrophils/100 WBC (Bld) 57.1 % Normal 43.0-75.0 [facility] Comment on above: Performed By: #### C BC #### [facility] [address] [place] [address] Dr. Adalberto Sierra Platelet mean volume (Bld) [Entitic vol] 9.3 fL Critically low 9.5-13.5 [facility] Comment on above: Performed By: #### C BC #### [facility] [address] [place] [address] Dr. Adalberto Sierra PLT 154 103/ul Normal 150-450 [facility] Comment on above: Performed By: #### C BC #### [facility] [address] [address] [address] Adalberto Sierra RBC 4.68 106/ul Critically low 4.70-6.10 [facility] Comment on above: Performed By: #### C BC #### [facility] [address] [address] [address] Adalberto Sierra WBC 6.4 103/ul Normal 4.0-11.0 [facility] Comment on above: Performed By: #### C BC #### [facility] [address] [address] [address] Adalberto Sierra LIPID PROFILEon 07-08-2021 CHOL-HDL RATIO NORM SEE BELOW Normal [facility] Comment on above: Result Comment: 3.3 - 4.4 LOW RISK 4.4 - 7.1 AVERAGE RISK 7.1 - 11.0 MODERATE RISK >11.0 HIGH RISK Performed By: #### L IPID, CMP #### [facility] [address] [address] [address] Adalberto Sierra Cholesterol [Mass/Vol] 87 mg/dL Normal <=200 [facility] Comment on above: Performed By: #### L IPID, CMP #### [facility] [address] [address] [address] Adalberto Sierra Cholesterol in HDL [Mass/Vol] 32 mg/dL Normal [facility] Comment on above: Performed By: #### L IPID, CMP #### [facility] [address] [address] [address] Adalberto Sierra Cholesterol in LDL [Mass/Vol] 28.6 mg/dL Normal [facility] Comment on above: Performed By: #### L IPID, CMP #### [facility] [address] [address] [address] Adalberto Sierra Cholesterol.total /Cholesterol in HDL [Mass ratio] 2.7 {ratio} Normal [facility] Comment on above: Performed By: #### L IPID, CMP #### [facility] [address] [address] [address] Adalberto Sierra HDL NORMAL > or = 60 mg/dl - LO W CARDIOVASCULAR RISK <40 mg/dl - HIGH CARDIOVASCULAR RISK Normal [facility] Comment on above: Performed By: #### L IPID, CMP #### [facility] [address] [address] [address] Adalberto Sierra LDL CALC NORMAL SEE BELOW Normal [facility] Comment on above: Result Comment: <100 mg/dl OPTIMAL 100 - 129 mg/dl NEAR OR ABOVE OPTIMAL 130 - 159 mg/dl BORDERLINE HIGH 160 - 189 mg/dl HIGH >190 mg/dl VERY HIGH Performed By: #### L IPID, CMP #### [facility] [address] [address] [address] Adalberto Sierra Triglyceride [Mass/Vol] 132 mg/dL Normal <=150 [facility] Comment on above: Performed By: #### L IPID, CMP #### [facility] [address] [place] [address] Dr. Adalberto Sierra VLDL CALC 26.4 mg/dL Normal [facility] Comment on above: Performed By: #### L IPID, CMP #### [facility] [address] [address] [address] Adalberto Sierra PROF 14(COMP METB)on 022 Albumin [Mass/Vol] 4.0 g/dL Normal 3.5-5.0 [facility] Comment on above: Performed By: #### L IPID, CMP #### [facility] [address] [place] [address] Dr. Adalberto Sierra Albumin/Globulin [Mass ratio] 1.4 {ratio} Normal [facility] Comment on above: Performed By: #### L IPID, CMP #### [facility] [address] [address] [address] Adalberto Sierra ALP [Catalytic activity/Vol] 102 U/L Normal 38-126 [facility] Comment on above: Performed By: #### L IPID, CMP #### [facility] [address] [address] [address] Adalberto Sierra ALT [Catalytic activity/Vol] 36 U/L Normal 21-72 [facility] Comment on above: Performed By: #### L IPID, CMP #### [facility] [address] [place] [address] Dr. Adalberto Sierra Anion gap [Moles/Vol] 11.0 mmol/L Normal [facility] Comment on above: Performed By: #### L IPID, CMP #### [facility] [facility] [address] [place] [address] Dr. Adalberto Sierra AST [Catalytic activity/Vol] 24 U/L Normal 17-59 [facility] Comment on above: Performed By: #### L IPID, CMP #### [facility] [address] [place] [address] Dr. Adalberto Sierra Bilirubin [Mass/Vol] 0.9 mg/dL Normal 0.2-1.3 [facility] Comment on above: Performed By: #### L IPID, CMP #### [facility] [address] [place] [address] Dr. Adalberto Sierra Calcium [Mass/Vol] 9.3 mg/dL Normal 8.4-10.2 [facility] Comment on above: Performed By: #### L IPID, CMP #### [facility] [address] [place] [address] Dr. Adalberto Sierra Chloride [Moles/Vol] 106 mmol/L Normal 98-107 [facility] Comment on above: Performed By: #### L IPID, CMP #### [facility] [address] [place] [address] Dr. Adalberto Sierra CO2 [Moles/Vol] 28.0 mmol/L Normal 22.0-30.0 [facility] Comment on above: Performed By: #### L IPID, CMP #### [facility] [address] [place] [address] Dr. Adalberto Sierra Creatinine [Mass/Vol] 0.84 mg/dL Normal 0.66-1.25 [facility] Comment on above: Performed By: #### L IPID, CMP #### [facility] [address] [place] [address] Dr. Adalberto Sierra EGFR-AF CZECH >60 Normal >=60 [facility] Comment on above: Performed By: #### L IPID, CMP #### [facility] [address] [place] [address] Dr. Adalberto Sierra EGFR-NON AF CZECH >60 Normal >=60 [facility] Comment on above: Performed By: #### L IPID, CMP #### [facility] [address] [address] [address] Adalberto Sierra Globulin (S) [Mass/Vol] 2.8 g/dL Normal [facility] Comment on above: Performed By: #### L IPID, CMP #### [facility] [address] [address] [address] Adalberto Sierra Glucose [Mass/Vol] 101 mg/dL Normal 74-106 [facility] Comment on above: Performed By: #### L IPID, CMP #### [facility] [address] [place] [address] Dr. Adalberto Sierra Potassium [Moles/Vol] 4.0 mmol/L Normal 3.4-5.0 [facility] Comment on above: Performed By: #### L IPID, CMP #### [facility] [address] [place] [address] Dr. Adalberto Sierra Protein [Mass/Vol] 6.8 g/dL Normal 6.1-8.2 [facility] Comment on above: Performed By: #### L IPID, CMP #### [facility] [address] [place] [address] Dr. Adalberto Sierra Sodium [Moles/Vol] 141 mmol/L Normal 137-145 [facility] Comment on above: Performed By: #### L IPID, CMP #### [facility] [address] [address] [address] Adalberto Sierra Urea nitrogen [Mass/Vol] 12.0 mg/dL Normal 9.0-20.0 [facility] Comment on above: Performed By: #### L IPID, CMP #### [facility] [address] [place] [address] Dr. Adalberto Sierra Urea nitrogen/Creatini ne [Mass ratio] 14.3 mg/mg Normal [facility] Comment on above: Performed By: #### L IPID, CMP #### [facility] [address] [address] [address] Adalberto Sierra Vital Signs Date Time Vital Sign Value Performing Clinician Facility 11-23-2023 08:52-0400 Blood Pressure Location [facility] 11-23-2023 08:52-0400 Diastolic blood pressure 64 mm[Hg] [facility] [employer] [facility] 11-23-2023 08:52-0400 Heart rate 67 /min [employer] [employer] [facility] 11-23-2023 08:52-0400 Respiratory rate 16 /min [employer] [employer] [facility] 11-23-2023 08:52-0400 Systolic blood pressure 131 mm[Hg] [facility] [employer] [facility] 05-04-2023 09:50-0500 Body height 175.26 cm Telma Mcdonald Other [facility] [employer] Other 05-04-2023 09:50-0500 Body mass index (BMI) [Ratio] 25.34 kg/m2 Telma Mcdonald Other [facility] [employer] Other 05-04-2023 09:50-0500 Body temperature 99.6 [degF] Telma Mcdonald Other [employer] [employer] Other 05-04-2023 09:50-0500 Body weight 77.84 kg Telma Mcdonald Other [facility] [employer] Other 05-04-2023 09:50-0500 Diastolic blood pressure 80 mm[Hg] Telma Hollidaymond Other [facility] [employer] Other 05-04-2023 09:50-0500 Respiratory rate 18 /min Telma Mcdonald Other [facility] Other 05-04-2023 09:50-0500 SaO2% (BldA) [Mass fraction] 96 % Telma Hollidaymond Other [facility] Other 05-04-2023 09:50-0500 Systolic blood pressure 134 mm[Hg] Telma Hollidaymond Other [employer] Other Encounters Encounter Date Encounter Type Care Provider Facility Start: 11-21-2024 ambulatory Seb GRANDE Facili ty:[facility] Start: 11-23-2023 End: 11-23-2023 ambulatory Seb GRANDE Facility:[facility] Start: 11-23-2023 End: 11-23-2023 Patient encounter procedure Seb GRANDE [facility] Start: 08-06-2023 End: 08-06-2023 ambulatory Seb GRANDE Facility:[facility] Start: 08-06-2023 End: 08-06-2023 Lab Drop off Seb GRANDE [facility] Start: 08-06-2023 End: 08-06-2023 ambulatory Seb GRANDE Facility:[facility] Start: 08-06-2023 End: 08-06-2023 Patient encounter procedure Seb GRANDE [facility] Start: 05-04-2023 End: 05-04-2023 ambulatory Telma Mcdonald Other [employer] Other Start: 05-04-2023 Office outpatient ne w 20 minutes Telma Mcdonald [facility] Start: 12-04-2022 End: 12-04-2022 ambulatory [facility] Start: 08-24-2021 End: 08-25-[address] SUSI JACKSON Facility:[facility] Start: 07-08-2021 End: 07-09-2021 ambulatory SHANIQUA XIAO Facility:[facility] Procedures Date Procedure Procedure Detail Performing Clinician Start: 08-24-[address] SUSI BURDICK Comment on above: Performed By: #### P SAD #### [facility] [address] [place] [address] Dr. Adalberto Sierra Start: 10-14-2008 Prostatectomy Seb ARCE Start: 06-30-2008 Transrectal biopsy o f prostate using ultrasound guidance Seb GRANDE Biopsy of skin Seb Harden Discectomy of spine Seb GRANDE Hemorrhoidectomy Seb RAMIREZ Placement of stent Seb ARCE Immunizations Immunization Date Immunization Notes Care Provider Fa shukri 08-31-2020 SARS-CoV-2 (COVID-19 ) mRNA BNT-162b2 vax Seb GRANDE [facility] 08-10-2020 SARS-CoV-2 (COVID-19 ) mRNA BNT-162b2 vax Seb GRANDE [facility] Comment on above: Result Comment: 2023: [id number] 03-25-2020 influenza virus vaccine, unspecified formulation Seb GRANDE [facility] 03-08-2020 influenza virus vaccine, unspecified formulation Seb GRANDE [facility] Payers Date Payer Category Payer Medicare [id number] 1960 Unknown [id number] 1950 Unknown [id number] 1950 Unknown [id number] 2.16.84 [id number] 1950 Unknown [id number] 2.16.8 [id number] 1950 Unknown [id number] 2.16.8 [id number] 1950 Unknown [id number] 2.16.8 [id number] 1950 Unknown [id number] 2.16.8 [id number] Social History Date Type Detail Facility Unknown if ever smoked [employer] Other Sex Assigned At [facility] Start: 08-06-2023 End: 11-23-2023 Tobacco smoking status Never smoked tobacco (finding) [facility] Tobacco smoking status Never [facility] Functional Status Date Assessment Result Facility 11-23-2023 Functional Status N/A [facility] 08-06-2023 Functional Status N/A [facility] Clinical Notes 12-04-2022 to 11-23-2023 Note Date & Type Note Facility 11-23-2023 Hospital Discharg e instructions Patient Education 11/23/2023 09:30:38 Dietary Guidelines to Help Prevent Kidney Stones [...] include: ?8 oz (237 mL) of milk, dwdehss-tnyeurbubfmb-uweur milk, and calcium-fortifiedfruit juice. Calcium-fortified means that [...] ?Spinach (cooked), rhubarb, beets, sweet potatoes, and Northern Irish chard. ?Peanuts. ?Potato chips, congolese fries, and baked potatoes with skin on. ?Nuts and nut products. ?Chocolate. If you regularly take a diuretic medicine, make sure to eat at least 1 or 2 servings of fruits or vegetables that are high in potassium each day. These include: ?Avocado. ?Banana. ?[place], prune, carrot, or tomato juice. ?Baked potato. [...] magnesium, fish oil, or vitamin B6. Take plqp-rvj-etydvef and prescription medicines only as told by [...] Casseroles. Pizza. Lasagna. Frozen meals. Potato chips. Turkish fries. The items listed above may not [...] provider. Document Revised: 08/24/2022 Document Reviewed: 08/24/2022 [email or web address] Patient Education 2022 [employer]. Follow Up Care 08/06/2023 16:00:40 With:OVI HERBERT, Seb Talavera, HUONGL Address: [address] [place] [address] [place] [address]- When: Unknown [facility] Vladislav 11-23-2023 Note Patient Education Nephrology Dietary Guidelines to Help [...] ? 8 oz (237 mL) of milk, lcqmnvv-lrhdnrgxugkg-qlzff milk, and calcium-fortifiedfruit juice. Calcium-fortified means that [...] Spinach (cooked), rhubarb, beets, sweet potatoes, and Northern Irish chard. ? Peanuts. ? Potato chips, congolese fries, and baked potatoes with skin on. ? Nuts and nut products. ? Chocolate. ? If you regularly take a diuretic medicine, make sure to eat at least 1 or 2 servings of fruits or vegetables that are high in potassium each day. These include: ? Avocado. ? Banana. ? [place], prune, carrot, or tomato juice. ? Baked [...] fish oil, or vitamin B6. ? Take uxqr-ulh-picdemi and prescription medicines only as told by your health care provider. These include suppleme (more content not included)... [facility] 08-06-2023 Hospital Discharg e instructions Patient Education [...] include: ?8 oz (237 mL) of milk, dipxdhi-bcddmqicgljv-gispd milk, and calcium-fortifiedfruit juice. Calcium-fortified means that [...] ?Spinach (cooked), rhubarb, beets, sweet potatoes, and Northern Irish chard. ?Peanuts. ?Potato chips, congolese fries, and baked potatoes with skin on. ?Nuts and nut products. ?Chocolate. If you regularly take a diuretic medicine, make sure to eat at least 1 or 2 servings of fruits or vegetables that are high in potassium each day. These include: ?Avocado. ?Banana. ?[place], prune, carrot, or tomato juice. ?Baked potato. [...] magnesium, fish oil, or vitamin B6. Take jqrh-abd-viebvnb and prescription medicines only as told by [...] Casseroles. Pizza. Lasagna. Frozen meals. Potato chips. Turkish fries. The items listed above may not [...] provider. Document Revised: 08/24/2022 Document Reviewed: 08/24/2022 [email or web address] Patient Education 2022 [employer]. Follow Up Care 06/13/2023 15:35:42 With:OVI HERBERT, Seb Talavera, URL Address: [facility] [address], [place] [address] [phone] When: Unknown Comments:3-4 mos w/ metabolic workup [facility] 05-04-2023 Evaluation note Encounter Date Diagnosis Assessment Notes Apr, Sinus congestion (ICD-10 - R09.81) Apr, Influenza A (ICD-10 - J10.1) Influenza: adult home care material was printed Drink plenty fluids, get plenty of rest. Take Tylenol or Motrin as needed for aches pains or fevers. Continue home occasions as prescribed. Follow-up with your family physician if no improvement in 2 to 3 days [facility] Other 07-10-2023 [facility] Subjective Jermaine Bosch is a [...] with Lyme disease after a trip to [place] in December 2013. He was treated. 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ments Appointment Date:11/23/2023 08:45:00 AM Scheduled Provider:Seb GRANDE MD Location:[facility] Appointment Type:URO Office Visit Future Scheduled Tests Laboratory* PSA Total 08/06/23 [facility] evaluation + Plan note Future Appointments Appointment Date:11/23/2023 08:45:00 AM Scheduled Provider:Seb GRANDE MD Location:[facility] Appointment Type:URO Office Visit Diagnostic Tests Pending * PSA Total 08/06/23 Future Scheduled Tests Laboratory* [facility] Appointment Date:11/21/2024 08:00:00 AM Scheduled Provider:Seb GRANDE MD Location:[facility] Appointment Type:URO Office Visit Diagnostic Tests Pending * PSA Total 09/25/24 * Creatinine 11/23/23 Future Scheduled Tests Laboratory* PSA Total 08/06/23 [facility] History general Narrative - Reported* Type Description Date Medical History HTN (hypertension) Medical History Hypercholesterolemia Medical History Heart disease Surgical History Neck Surgery Surgical History prostatectomy Surgical History cancer Surgical History hemorrhoidectomy Surgical History cardiac stent Hospitalization History see above [facility] Other Hospital course Narrative No data available for this section [facility] Hospital Discharge instructions No data available for this section [facility] data available for this section [facility] Summary Purpose Family History No Family History [...] and content) DATE CREATED AUTHOR 08/29/2021 [facility] DATE CREATED AUTHOR AUTHOR'S ORGANIZ ATION 12/04/2022 [facility] DATE CREATED AUTHOR AUTHOR'S ORGANIZ ATION 11/24/2023 [facility] REASON FOR VISIT (unrecogniz ed section and content) SINUS CONGESTION, COUGH, EXP OSURE TO INFLUENZA Patient Care team informatio n (unrecognized section and content) Personnel Name: SUSI JACKSON MD Address: Address: [address] [place], [place] [address] [address] Personnel Name: SUSI JACKSON MD Address: Address: [address] [place], [place] [address] [address] Personnel Name: SUSI JACKSON MD Address: Address: [address] [place], [place] [address] FOR RECORDS PERTAINING TO PATIENTS WHO ARE [...] BE BASED ON THE PRIMARY CLINICAL RECORDS. [employer] [facility]. provides no warranty or guarantee of the accuracy or completeness of information in this document.
--- NOTE | 2023-12-03 08:17 | XR_ITS ---
[address] [address] Patient Name: JEREMY BAUM MRN: [id number] date: 1950 Sex: M Assigned Patient Location: LAB Current Patient Location: LAB Accession/Order Number: [id number] Exam Date: 12/03/2023 08:30 Report Date: 12/03/2023 13:29 At the request of: ROEL DIOR Procedure: XR abdomen 1V EXAMINATION: XR abdomen 1V HISTORY: Ureteral Stone COMPARISON: 08/01/2023 FINDINGS: KIDNEY/URETER - RIGHT: No visible renal or ureteral calcifications. KIDNEY/URETER - LEFT: No visible renal or ureteral calcifications. PELVIS: No visible ureteral calcifications. Any visible calcifications favor phleboliths. BOWEL: No abnormal dilation or deviation. BONES: Moderate bilateral hip osteoarthropathy. Degenerative spondylosis of the spine OTHER: Negative. No abnormal gaseous collections. XR/XR abdomen 1V IMPRESSION: No definite urinary tract calculi Electronically authenticated by: AZALIA SOTO Date: 12/03/2023 13:29
[2023-12-03 08:20] LABS: Estimated GFR (African America >60 (>=60); Estimated GFR (Non-African Ame >60 (>=60)
== END 2023-12-03 08:20 | disposition home or self-care (01) ==
LOC: LAB 12-17 08:20
PROVIDERS: PCP Family Medicine; Visit Provider Urology
DX: N20.1 Calculus of ureter (principal); N20.0 Calculus of kidney
CPT/HCPCS: 36415; 74018; 82565

== ENCOUNTER 2023-12-18 09:56 | Outpatient (OUT) | payer MEDICARE, SELFPAY ==
--- NOTE | 2023-12-18 10:04 | XR_ITS ---
The [address] [address] Patient Name: JEREMY BAUM MRN: [id number] date: 1950 Sex: M Assigned Patient Location: [place] Current Patient Location: [place] Accession/Order Number: [id number] Exam Date: 12/18/2023 10:15 Report Date: 12/18/2023 11:33 At the request of: ROEL DIOR Procedure: XR IVP w KUB EXAMINATION: XR IVP w KUB HISTORY: Kidney Stones ; right side COMPARISON: No relevant comparison available. TECHNIQUE: After obtaining patient consent a fisheries director image was obtained followed by injection of 100cc of Omnipaque 300 IV contrast. Immediate nephrographic images were obtained. Corticomedullary and urographic phase images were obtained at 5, 10, 15 and 20 minutes. 15 minute oblique images were also obtained. FINDINGS: KIDNEY/URETER - RIGHT: No visible calcifications. KIDNEY/URETER - LEFT: No visible calcifications. PELVIS: No visible ureteral calcifications. Any visible calcifications favor phleboliths. NEPHROGRAPHIC PHASE: Normal, symmetric size, contour, and orientation. Normal and symmetric time of contrast uptake. CORTICOMEDULLARY: No mass or abnormal appearing medulla, pyramids, or collecting system. UROGRAPHIC PHASE: Normal caliber, course, and number of ureters. Distal left ureter projects over a phlebolith; the calcification is not within the ureter. BLADDER: Normal size and contour. BOWEL: No abnormal dilation or deviation. BONES: No acute abnormality. OTHER: Negative. No abnormal gaseous collections. XR/XR IVP w KUB IMPRESSION: 1. No urinary tract calculi or obstructive uropathy. 2. Unremarkable urinary bladder. Electronically authenticated by: INOCENCIA MARTINEZ Date: 12/18/2023 11:33
--- OUTSIDE RECORDS SUMMARY | 2023-12-18 10:13 | XMS_ITS | CCD ---
Author Organization [facility] Care Team Providers Care Presiding Judge Name Role Phone DR SUSI JACKSON Primary Care Unavailable OVI, DR SEVILLA Consulting Unavailable GRANDE, DR SEVILLA Attending Unavailable OVI, DR SEVILLA Admitting Unavailable SHANIQUA XIAO Consulting Unavailable RENETTA, DR SUSI Hernandez Primary Care Unavailable SHANIQUA XIAO Attending Unavailable SHANIQUA XIAO Admitting Unavailable Telma Mcdonald Unavailable SUSI JACKSON Primary Care Physician [phone] Seb GRANDE Attending Unavailable Seb GRANDE Attending Unavailable OVI, Seb Talavera Attending Unavailable Seb GRANDE Attending Unavailable Seb GRANDE Admitting Unavailable SHANIQUA XIAO Attending Unavailable Allergies Allergy Classification Reported Allergen(s) Allergy Type Date of Onset Reaction(s) Facility (1 source) Sulfonamides (Antibiotic) Drug allergy (disorder) 9 [facility] (4 sources) Sulfonamides (Antibiotic); Translations: [sulfa drugs] Drug allergy Mild (qualifier value) [facility] (1 source) No Known Medication Allergies; Translations: [No Known Medication Allergies] Propensity to adverse reactions (disorder) [facility] Repository (1 source) ALLERGIES NOT ON [...] dysrhythmias (3 sources) Atrial fibrillation 09-09-2019 Chronic Cardiac dysrhythmias (2 sources) Bradycardia, unspecified; Translations: [Bradycardia, unspecified] Onset: 12-12-2023 Episodic Coronary atherosclerosis and other heart disease (4 sources) Atherosclerotic heart disease of [place] coronary artery without angina pectoris; Translations: [ASHD PILOT POINT CA W/O ANGINA PECTORIS] Onset: 07-08-2021 Chronic Disorders of lipid metabolism (3 sources) Hyperlipidemia 09-09-2019 Chronic Esophageal disorders (3 sources) Gastroesophageal reflux disease 09-09-2019 Chronic Essential hypertension (3 sources) Hypertensive disorder 09-09-2019 Chronic Genitourinary symptoms and ill-defined conditions (4 [...] Test Name Value Interpretation Reference Range Facility Office Visiton 12-12-2023 Follow-up visit [id number] Jermaine Bosch 1950 M Date Provider Department Center 12/12/2023 166-SHANIQUA XIAO CARD [facility] Family History Problem Relation Age of Onset Coronary artery disease Mother Coronary artery disease Father Family Status - Relation Status Age at Mother Father Level of Service:97564 MD OFFICE/OUTPATIENT ESTABLISHED MOD MDM 30 MIN Reason for Visit and Comments: Follow-up [063546] - Yearly follow up Normal [facility] Ambulatory Visit Summaryon 0 11-23-2023 Ambulatory Visit Summary Ambulatory Visit Summary JERMAINE BOSCH :1950 Visit Date:11/23/2023 Ambulatory Visit Instructions Your [...] Follow Up with OVI HERBERT, Seb Talavera, APRYL When: Where: [address] [place] [address]- Medications What How Much When Instructions Unchanged [...] ? 8 oz (237 mL) of milk, pimfsux-nindzsynmacl-l airy milk, and calcium-fortifiedfruit juice. Calcium-fortified means [...] cereals. Co (more content not included)... Normal [facility] Urology Office/Clinic Noteon 11-23-2023 Urology Office/Clinic Note [...] 1. Ureteral stone (N20.1: Calculus of ureter) [facility] ER visit 04/21/23 due to sudden right flank pain. First stone episode. CT AP wo con 03/2023 - 3 mm R UVJ stone w/ hydro and 6mm L ureteral stone wo hydro. Multiple 2-3mm stones in both kidneys. Pt passed a stone the morning after the ER. Stone analysis 100% Chase Ca Ox. KUB 08/01/23 [facility] - 6 [...] Contact Information OVI HERBERT, Seb Talavera, URL [address] [place] [address]- Additional Instructions: IVP now & 1 year w/ PSA and KUB Patient Education Dietary Guidelines to Help Prevent Kidney Stones INora, personally scribed for Dr. Grande on 11/23/2023 [...] Name Test Result (more content not included)... [facility] Comment on above: Result Comment: Elec tronically Signed By: Seb GRANDE MD\.br\Date and Time Signed: 11/23/23 09:43 EDT\.br\Electronically Co-Signed By: Nora Aly.morteza\Date and Time Co-Signed: 11/23/23 09:42 EDT Lab Reportson 09-18-2023 Lab Reports [id number] 0TIFF [facility] Lab Reportson 09-12-2023 Lab Reports [id number]#1.0 0TIFF [facility] Report[facility] 09-10-2023 Lab Reports [id number] 0TIFF Normal [facility] Lab Reports [id number] 0TIFF Normal [facility] Lab Reports [id number]#1.0 0TIFF Normal [facility] ED Note-Physicianon 08-07-19 24 ED Note-Physician [id number]#1.0 0TIFF Normal [facility] PSA Totalon 08-07-2023 Prostate specific Ag [Mass/Vol] ng/mL Low 0.1-3.5 [facility] Comment on above: Result Comment: The concentration of PSA determined by different manufacturers can vary due to differences in assay methods and reagent specificity. Values obtained from different assay methods cannot be used interchangeably. The methodology used for this result was chemiluminescence using [employer]'s [employer] Hybritech PSA reagent. Performed By: #### 1 [id number] ####[facility] [address] [place] [address] Ambulatory Visit Summaryon 0 08-06-2023 Ambulatory Visit [...] Following Appointments Follow Up with OVI HERBERT, APRYL Vicente When: Comments: 3-4 mos w/ metabolic workup Where: [facility] [address], [place] [id number] You Need to Complete the Following PSA [...] ? 8 oz (237 mL) of milk, xitszip-ccupztatyojt-l airy milk, and calcium-fortifiedfruit juice. Calcium-fortified means [...] when cooking (more content not included)... Normal [facility] Patient Educationon 08-06-19 Patient Education Nephrology [...] ? 8 oz (237 mL) of milk, aqmzeur-vullxhpblmip-e airy milk, and calcium-fortifiedfruit juice. Calcium-fortified means [...] Spinach (cooked), rhubarb, beets, sweet potatoes, and Venezuelan chard. ? Peanuts. ? Potato chips, salvadorean fries, and baked potatoes with skin on. ? Nuts and nut products. ? Chocolate. ? If you regularly take a diuretic medicine, make sure to eat at least 1 or 2 servings of fruits or vegetables that are high in potassium each day. These include: ? Avocado. ? Banana. ? Kent, prune, carrot, or tomato juice. ? Baked [...] fish oil, or vitamin B6. ? Take xelo-pdd-hsvocbr and prescription medicines only as told by your health care provider. These include supplements. What foods sh (more content not included)... Normal [facility] Urology Office/Clinic Noteon 08-06-2023 Urology Office/Clinic Note Chief Complaint follow up to [facility] ER HPI Staff F/u to [facility] ER 04/21/23 due to right flank [...] 1. Kidney stones (N20.0: Calculus of kidney) [facility] ER visit 04/21/23 due to sudden right flank pain. First stone episode. CT AP wo con - 3 mm R UVJ stone w/ hydro and 6mm L ureteral stone wo hydro. Multiple 2-3mm stones in both kidneys. Pt passed a stone the morning after the ER. Stone analysis 100% Chase Ca Ox. KUB 08/01/23 [facility] - 6 [...] [facility] [address], [place] [address] [phone] Additional Instructions: 3-4 mos w/ metabolic workup Patient Education Dietary Guidelines to Help Prevent Kidney Stones ITania, personally scribed for Dr. Grande on 08/06/2023 15:56:07. . Documentation recorded by the scribeTania, accurately reflects the services(s) I performed and [...] BNT-162b2 vax 03 (more content not included)... Normal [facility] Comment on above: Result Comment: Elec tronically Signed By: Seb GRANDE MD\.br\Date and Time Signed: 08/06/23 15:57 EDT\.br\Electronically Co-Signed By: Tania Chanel\.br\Date and Time Co-Signed: 08/06/23 15:56 EDT RAD - MISCon 08-02-2023 RAD - MISC [id number] 0TIFF [facility] Provider Letteron 06-13-2023 Provider Letter June 13, 2023 JERMAINE BOSCH [address] [address] : 1950 Dear Jermaine , We have been trying to reach you with no success. It is important that you return our call regarding scheduling a follow up appointment with a KUB X-Ray with Dr. Seb Grande upon receiving this letter. Thank you for your prompt attention to this matter. Sincerely, [facility] [address], [place] [address] Normal [facility] Lab Reportson 05-18-2023 Lab Reports [id number] 0TIFF Normal [facility] Lab Reportson 05-13-2023 Lab Reports [id number]#1.0 0TIFF Normal [facility] COVID/FLU RT-PCRon SARS-CoV-2 (COVID-19) RNA MAIKEL+probe Ql (Unsp spec) Negative [employer] Other COVID/FLU RT-PCR Positive [employer] Other COVID/FLU RT-PCR Negative [employer] Other CBC AUTO DIFFon 07-08-2021 BASO # 0.0 103/ul Normal 0.0-0.1 [facility] Comment on above: Performed By: #### C BC #### [facility] [address] [place] [address] Dr. Adalberto Sierra Basophils/100 WBC (Bld) 0.6 % Normal 0.2-2.0 [facility] Comment on above: Performed By: #### C BC #### [facility] [address] [place] [address] Dr. Adalberto Sierra EO # 0.2 103/ul Normal 0.0-0.7 [facility] Comment on above: Performed By: #### C BC #### [facility] [address] [place] [address] Dr. Adalberto Sierra Eosinophils/100 WBC (Bld) 3.0 % Normal 0.9-7.0 [facility] Comment on above: Performed By: #### C BC #### [facility] [address] [place] [address] Dr. Adalberto Sierra Erythrocyte distribution width (RBC) [Ratio] 13.4 % Normal 11.0-15.0 [facility] Comment on above: Performed By: #### C BC #### [facility] [address] [place] [address] Dr. Adalberto Sierra Hematocrit (Bld) [Volume fraction] 41.6 % Critically low 42.0-54.0 [facility] Comment on above: Performed By: #### C BC #### [facility] [address] [place] [address] Dr. Adalberto Sierra Hemoglobin (Bld) [Mass/Vol] 13.5 g/dL Critically low 14.0-18.0 [facility] Comment on above: Performed By: #### C BC #### [facility] [address] [place] [address] Dr. Adalberto Sierra IG # 0.01 10e3/ul Normal 0.00-0.03 [facility] Comment on above: Performed By: #### C BC #### [facility] [address] [place] [address] Dr. Adalberto Sierra IG % 0.2 % Normal 0.0-0.5 [facility] Comment on above: Performed By: #### C BC #### [facility] [address] [place] [address] Dr. Adalberto Sierra LYMPH # 2.0 103/ul Normal 1.2-3.8 [facility] Comment on above: Performed By: #### C BC #### [facility] [address] [place] [address] Dr. Adalberto Sierra Lymphocytes/100 WBC (Bld) 31.9 % Normal 20.5-60.0 [facility] Comment on above: Performed By: #### C BC #### [facility] [address] [place] [address] Dr. Adalberto Sierra MANUAL DIFF REQ NO Normal [facility] Comment on above: Performed By: #### C BC #### [facility] [address] [place] [address] Dr. Adalberto Sierra MCH (RBC) [Entitic mass] 28.8 pg Normal 25.9-34.0 [facility] Comment on above: Performed By: #### C BC #### [facility] [address] [place] [address] Dr. Adalberto Sierra MCHC (RBC) [Mass/Vol] 32.5 g/dL Normal 29.9-35.2 [facility] Comment on above: Performed By: #### C BC #### [facility] [address] [address] [address] Adalberto Sierra MCV (RBC) [Entitic vol] 88.9 fL Normal 80.0-94.0 [facility] Comment on above: Performed By: #### C BC #### [facility] [address] [place] [address] Dr. Adalberto Sierra MONO # 0.5 103/ul Normal 0.3-0.8 [facility] Comment on above: Performed By: #### C BC #### [facility] [address] [place] [address] Dr. Adalberto Sierra Monocytes/100 WBC (Bld) 7.2 % Normal 1.7-12.0 [facility] Comment on above: Performed By: #### C BC #### [facility] [address] [place] [address] Dr. Adalberto Sierra NEUT # 3.6 103/ul Normal 1.4-6.5 [facility] Comment on above: Performed By: #### C BC #### [facility] [address] [place] [address] Dr. Adalberto Sierra Neutrophils/100 WBC (Bld) 57.1 % Normal 43.0-75.0 [facility] Comment on above: Performed By: #### C BC #### [facility] [address] [address] [address] Adalberto Sierra Platelet mean volume (Bld) [Entitic vol] 9.3 fL Critically low 9.5-13.5 [facility] Comment on above: Performed By: #### C BC #### [facility] [address] [place] [address] Dr. Adalberto Sierra PLT 154 103/ul Normal 150-450 [facility] Comment on above: Performed By: #### C BC #### [facility] [address] [place] [address] Dr. Adalberto Sierra RBC 4.68 106/ul Critically low 4.70-6.10 [facility] Comment on above: Performed By: #### C BC #### [facility] [address] [address] [address] Adalberto Sierra WBC 6.4 103/ul Normal 4.0-11.0 [facility] Comment on above: Performed By: #### C BC #### [facility] [address] [place] [address] Dr. Adalberto Sierra LIPID PROFILEon 07-08-2021 CHOL-HDL RATIO NORM SEE BELOW Normal [facility] Comment on above: Result Comment: 3.3 - 4.4 LOW RISK 4.4 - 7.1 AVERAGE RISK 7.1 - 11.0 MODERATE RISK >11.0 HIGH RISK Performed By: #### L IPID, CMP #### [facility] [address] [place] [address] Dr. Adalberto Sierra Cholesterol [Mass/Vol] 87 mg/dL Normal <=200 [facility] Comment on above: Performed By: #### L IPID, CMP #### [facility] [address] [place] [address] Dr. Adalberto Sierra Cholesterol in HDL [Mass/Vol] 32 mg/dL Normal [facility] Comment on above: Performed By: #### L IPID, CMP #### [facility] [address] [place] [address] Dr. Adalberto Sierra Cholesterol in LDL [Mass/Vol] 28.6 mg/dL Normal [facility] Comment on above: Performed By: #### L IPID, CMP #### [facility] [address] [place] [address] Dr. Adalberto Sierra Cholesterol.total /Cholesterol in HDL [Mass ratio] 2.7 {ratio} Normal [facility] Comment on above: Performed By: #### L IPID, CMP #### [facility] [address] [place] [address] Dr. Adalberto Sierra HDL NORMAL > or = 60 mg/dl - LO W CARDIOVASCULAR RISK <40 mg/dl - HIGH CARDIOVASCULAR RISK Normal [facility] Comment on above: Performed By: #### L IPID, CMP #### [facility] [address] [place] [address] Dr. Adalberto Sierra LDL CALC NORMAL SEE BELOW Normal [facility] Comment on above: Result Comment: <100 mg/dl OPTIMAL 100 - 129 mg/dl NEAR OR ABOVE OPTIMAL 130 - 159 mg/dl BORDERLINE HIGH 160 - 189 mg/dl HIGH >190 mg/dl VERY HIGH Performed By: #### L IPID, CMP #### [facility] [address] [place] [address] Dr. Adalberto Sierra Triglyceride [Mass/Vol] 132 mg/dL Normal <=150 [facility] Comment on above: Performed By: #### L IPID, CMP #### [facility] [address] [place] [address] Dr. Adalberto Sierra VLDL CALC 26.4 mg/dL Normal [facility] Comment on above: Performed By: #### L IPID, CMP #### [facility] [address] [place] [address] Dr. Adalberto Sierra PROF 14(COMP METB)on 022 Albumin [Mass/Vol] 4.0 g/dL Normal 3.5-5.0 [facility] Comment on above: Performed By: #### L IPID, CMP #### [facility] [address] [place] [address] Dr. Adalberto Sierra Albumin/Globulin [Mass ratio] 1.4 {ratio} Normal [facility] Comment on above: Performed By: #### L IPID, CMP #### [facility] [address] [place] [address] Dr. Adalberto Sierra ALP [Catalytic activity/Vol] 102 U/L Normal 38-126 [facility] Comment on above: Performed By: #### L IPID, CMP #### [facility] [address] [place] [address] Dr. Adalberto Sierra ALT [Catalytic activity/Vol] 36 U/L Normal 21-72 [facility] Comment on above: Performed By: #### L IPID, CMP #### [facility] [address] [place] [address] Dr. Adalberto Sierra Anion gap [Moles/Vol] 11.0 mmol/L Normal [facility] Comment on above: Performed By: #### L IPID, CMP #### [facility] [address] [place] [address] Dr. Adalberto Sierra AST [Catalytic activity/Vol] 24 U/L Normal 17-59 [facility] Comment on above: Performed By: #### L IPID, CMP #### [facility] [address] [place] [address] Dr. Adalberto Sierra Bilirubin [Mass/Vol] 0.9 mg/dL Normal 0.2-1.3 [facility] Comment on above: Performed By: #### L IPID, CMP #### [facility] [address] [place] [address] Dr. Adalberto Sierra Calcium [Mass/Vol] 9.3 mg/dL Normal 8.4-10.2 [facility] Comment on above: Performed By: #### L IPID, CMP #### [facility] [address] [place] [address] Dr. Adalberto Sierra Chloride [Moles/Vol] 106 mmol/L Normal 98-107 [facility] Comment on above: Performed By: #### L IPID, CMP #### [facility] [address] [place] [address] Dr. Adalberto Sierra CO2 [Moles/Vol] 28.0 mmol/L Normal 22.0-30.0 [facility] Comment on above: Performed By: #### L IPID, CMP #### [facility] [address] [place] [address] Dr. Adalberto Sierra Creatinine [Mass/Vol] 0.84 mg/dL Normal 0.66-1.25 [facility] Comment on above: Performed By: #### L IPID, CMP #### [facility] [address] [place] [address] Dr. Adalberto Sierra EGFR-AF GIBRALTARIAN >60 Normal >=60 [facility] Comment on above: Performed By: #### L IPID, CMP #### [facility] [address] [place] [address] Dr. Adalberto Sierra EGFR-NON AF GIBRALTARIAN >60 Normal >=60 [facility] Comment on above: Performed By: #### L IPID, CMP #### [facility] [address] [place] [address] Dr. Adalberto Sierra Globulin (S) [Mass/Vol] 2.8 g/dL Normal [facility] Comment on above: Performed By: #### L IPID, CMP #### [facility] [address] [place] [address] Dr. Adalberto Sierra Glucose [Mass/Vol] 101 mg/dL Normal 74-106 [facility] Comment on above: Performed By: #### L IPID, CMP #### [facility] [address] [place] [address] Dr. Adalberto Sierra Potassium [Moles/Vol] 4.0 mmol/L Normal 3.4-5.0 [facility] Comment on above: Performed By: #### L IPID, CMP #### [facility] [address] [place] [address] Dr. Adalberto Sierra Protein [Mass/Vol] 6.8 g/dL Normal 6.1-8.2 [facility] Comment on above: Performed By: #### L IPID, CMP #### [facility] [address] [place] [address] Dr. Adalberto Sierra Sodium [Moles/Vol] 141 mmol/L Normal 137-145 [facility] Comment on above: Performed By: #### L IPID, CMP #### [facility] [address] [place] [address] Dr. Adalberto Sierra Urea nitrogen [Mass/Vol] 12.0 mg/dL Normal 9.0-20.0 [facility] Comment on above: Performed By: #### L IPID, CMP #### [facility] [address] [place] [address] Dr. Adalberto Sierra Urea nitrogen/Creatini ne [Mass ratio] 14.3 mg/mg Normal [facility] Comment on above: Performed By: #### L IPID, CMP #### [facility] [address] [place] [address] Dr. Adalberto Sierra Vital Signs Date Time Vital Sign Value Performing Clinician Facility 11-23-2023 08:52-0400 Blood Pressure Location Seb GRANDE [facility] 11-23-2023 08:52-0400 Diastolic blood pressure 64 mm[Hg] Seb GRANDE [facility] 11-23-2023 08:52-0400 Heart rate 67 /min Seb GRANDE [facility] 11-23-2023 08:52-0400 Respiratory rate 16 /min Seb GRANDE [facility] 11-23-2023 08:52-0400 Systolic blood pressure 131 mm[Hg] Seb GRANDE [facility] 05-04-2023 09:50-0500 Body height 175.26 cm Telma Mcdonald Other [employer] [facility] [employer] Other 05-04-2023 09:50-0500 Body mass index (BMI) [Ratio] 25.34 kg/m2 Telma Mcdonald Other [facility] [employer] Other 05-04-2023 09:50-0500 Body temperature 99.6 [degF] Telma Mcdonald Other [facility] [employer] Other 05-04-2023 09:50-0500 Body weight 77.84 kg Telma Mcdonald Other [facility] [employer] Other 05-04-2023 09:50-0500 Diastolic blood pressure 80 mm[Hg] Telma Mcdonald Other [facility] [employer] Other 05-04-2023 09:50-0500 Respiratory rate 18 /min Telma Mcdonald Other [employer] Other 05-04-2023 09:50-0500 SaO2% (BldA) [Mass fraction] 96 % Telma Mdconald Other [employer] Other 05-04-2023 09:50-0500 Systolic blood pressure 134 mm[Hg] Telma Mcdonald Other [employer] Other Encounters Encounter Date Encounter Type Care Provider Facility Start: 11-21-2024 [facility] [place] Start: 12-12-2023 End: 12-12-2023 ambulatory [facility] Start: 11-23-2023 End: 11-23-2023 ambulatory Seb GRANDE Facility:[facility] Start: 11-23-2023 End: 11-23-2023 Patient encounter procedure Seb GRANDE [facility] Start: 08-06-2023 End: 08-06-2023 ambulatory Seb GRANDE Facility:[facility] Start: 08-06-2023 End: 08-06-2023 Lab Drop off Seb GRANDE [facility] Start: 08-06-2023 End: 08-06-2023 ambulatory Seb GRANDE Facility:[facility] [place] Start: 08-06-2023 End: 08-06-2023 Patient encounter procedure Seb GRANDE [facility] Start: 05-04-2023 End: 05-04-2023 ambulatory Telma Tamara Other [employer] Other Start: 05-04-2023 Office outpatient ne w 20 minutes Telma Mcdonald [facility] Start: 08-24-2021 End: 08-25-[address] SUSI JACKSON Facility:[facility] Start: 07-08-2021 End: 07-09-2021 ambulatory SHANIQUA XIAO Facility:[facility] Procedures Date Procedure Procedure Detail Performing Clinician Start: 08-24-[address] SUSI BURDICK Comment on above: Performed By: #### P SAD #### [facility] [address] [place] [address] Dr. Adalberto Sierra Start: 10-14-2008 Prostatectomy Seb ARCE Start: 06-30-2008 Transrectal biopsy o f prostate using ultrasound guidance Seb GRANDE Biopsy of skin Seb Harden Discectomy of spine Seb GRANDE Hemorrhoidectomy Seb RAMIREZ Placement of stent Seb ARCE Immunizations Immunization Date Immunization Notes Care Provider Fa cility 08-31-2020 SARS-CoV-2 (COVID-19 ) mRNA BNT-162b2 vax Seb GRANDE [facility] 08-10-2020 SARS-CoV-2 (COVID-19 ) mRNA BNT-162b2 vax Seb GRANDE [facility] Comment on above: Result Comment: 2023: [id number] 03-25-2020 influenza virus vaccine, unspecified formulation Seb GRANDE [facility] 03-08-2020 influenza virus vaccine, unspecified formulation Seb GRANDE [facility] Payers Date Payer Category Payer Medicare [id number] 1960 Unknown [id number] 1950 Unknown [id number] 1950 Unknown [id number] 2.16.84 [id number] 1950 Unknown [id number] [id number] 1950 Unknown [id number] 2.16.8 [id number] 1950 Unknown [id number] 2.16.8 [id number] 1950 Unknown [id number] [id number] Social History Date Type Detail Facility Unknown if ever smoked [facility] Other Sex Assigned At [facility] Start: 08-06-2023 End: 11-23-2023 Tobacco smoking status Never smoked tobacco (finding) [facility] Tobacco smoking status Never [facility] Functional Status Date Assessment Result Facility 11-23-2023 Functional Status N/A [facility] 08-06-2023 Functional Status N/A [facility] Clinical Notes 05-04-2023 to 12-12-2023 Note Date & Type Note Facility 12-12-2023 Note Cardiovascular Medic in[facility] SUBJECTIVE Chief Complaint Patient presents with Follow-up Yearly follow up Jermaine Bosch is a 73 y.o. male here for follow-up. HPI PMHx: CAD s/p LAD stenting in 2011, HTN, HLD He is doing well from a cardiac standpoint. He has rare palpitations, lasts seconds, non limiting. He has some dizziness when his BP runs in the 100s systolically. This does not happen often. 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 BP at home averaging 110-120s/50-60s. Denies c/o CP, dyspnea, orthopnea, PND, LE edema, syncope. Patient Active Problem List Diagnosis Coronary atherosclerosis Essential hypertension Gastroesophageal reflux disease Hyperlipidemia Past Medical History: Diagnosis Date Coronary atherosclerosis 10/19/2011 Essential hypertension 10/19/2011 Hyperlipidemia 10/19/2011 Family History Problem Relation Name Age of Onset Coronary artery disease Mother Coronary artery disease Father Not on File Review of Systems Constitutional: Negative for chills, decreased appetite, fever, malaise/fatigue and weight gain. Cardiovascular: Positive for palpitations. Negative for chest pain, dyspnea on exertion, irregular heartbeat, leg swelling, near-syncope, orthopnea, paroxysmal nocturnal dyspnea and syncope. Hematologic/Lymphatic: Negative for bleeding problem. Does not bruise/bleed easily. Neurological: Positive for dizziness. OBJECTIVE Visit Vitals BP 120/64 (BP Location: Left arm, Patient Position: Sitting, BP Cuff Size: Adult) Pulse 50 Resp 12 Ht 1.753 m (5' 9 ) Wt 77.6 kg (171 lb) SpO2 97% BMI 25.25 kg/m??? BSA 1.94 m??? Medications: Current Outpatient Medications: amLODIPine (Norvasc) 10 mg tablet, Take 1 tablet (10 mg) by mouth once daily as directed., Disp: 90 tablet, Rfl: 3 aspirin 81 mg EC tablet, Take 1 tablet every day by oral route., Disp: , Rfl: atorvastatin (Lipitor) 40 mg tablet, take 1 tablet by mouth once daily, Disp: 90 tablet, Rfl: 3 lisinopril 40 mg tablet, Take 1 tablet (40 mg) by mouth once daily as directed. as directed, Disp: 90 tablet, Rfl: 0 metoprolol tartrate (Lopressor) 25 mg tablet, Take 0.5 tablets (12.5 mg) by mouth in the morning and at bedtime., Disp: 90 tablet, Rfl: 3 Physical Exam Constitutional: Appearance: Normal appearance. He is normal weight. HENT: Head: Normocephalic and atraumatic. Right Ear: External ear normal. Left Ear: External ear normal. Eyes: Extraocular Movements: Extraocular movements intact. Pupils: Pupils are equal, round, and reactive to light. Neck: Vascular: No carotid bruit. Cardiovascular: Rate and Rhythm: Normal rate and regular rhythm. Pulses: Normal pulses. Heart sounds: Normal heart sounds. Pulmonary: Effort: Pulmonary effort is normal. Breath sounds: Normal breath sounds. Abdominal: General: Bowel sounds are normal. Palpations: Abdomen is soft. Musculoskeletal: General: Normal range of motion. Cervical back: Neck supple. Right lower leg: No edema. Left lower leg: No edema. Skin: General: Skin is warm and dry. Neurological: General: No focal deficit present. Mental Status: He is alert and oriented to person, place, and time. Psychiatric: Mood and Affect: Mood normal. Behavior: Behavior normal. Thought Content: Thought content normal. Judgment: Judgment normal. Labs: 12/07/2022 CBC - unremarkable Cr 0.86, BUN 20, K 4, eGFR >60, AST 25, ALT 30 Chol 120, trig 121, LDL 60, HDL 36 Blood testing 07/08/2021: CBC, CMP w/n normal, TG 132, LDL 29. LDL 05/2020: 60 04/02/2018: LDL 57. TG 65. CBC, BMP, LFTs, CPK normal. BMP 07/2016 was within normal. Blood testing 04/13/2016: normal CBC, chem, and LDL 63 TG 106 Testing/Procedures: EKG 12/12/2023: sinus laron with PACs, RBBB Stress test on 11/14/2018: No acute or reversible ischemia. Thinning of the inferior and inferior septal wall versus attenuation artifact no change between stress and rest imaging. Mild ventriculomegaly. Normal wall motion and ejection fraction of 59 percent. ECG 07/19/2016 in clinic showed normal sinus rhythm with RBBB. Cardiac cath 2011 ASSESSMENT/PLAN: Diagnoses and all orders for this visit: Atherosclerosis of [place] coronary artery of [place] heart without angina pectoris Bradycardia - ECG 12 lead Mixed hyperlipidemia - Lipid panel; Future - Hepatic function panel; Future History of placement of stent in LAD coronary artery Primary hypertension #CAD s/p PCI to LAD in 2011 -He is doing well from a cardiac standpoint. Denies anginal sx's. -Continue ASA, statin, BB #Bradycardia -Asymptomatic -EKG obtained today showing PACs which may not be accounted for on automatic machines. Asked patient to monitor HR at home and notify us if consistently running low and/or he is symptomatic with lower HR's #HTN -Controlled -Continue amlodipine 10mg daily, lisinopril 40mg daily, and lopressor 12.5 (more content not included)... [facility] 11-23-2023 Hospital Discharge instructions Patient Education 11/23/2023 09:30:38 Dietary Guidelines [...] include: ?8 oz (237 mL) of milk, omwlazy-cswviougsiky-evzpd milk, and calcium-fortifiedfruit juice. Calcium-fortified means that [...] ?Spinach (cooked), rhubarb, beets, sweet potatoes, and Venezuelan chard. ?Peanuts. ?Potato chips, salvadorean fries, and baked potatoes with skin on. ?Nuts and nut products. ?Chocolate. If you regularly take a diuretic medicine, make sure to eat at least 1 or 2 servings of fruits or vegetables that are high in potassium each day. These include: ?Avocado. ?Banana. ?Kent, prune, carrot, or tomato juice. ?Baked potato. [...] magnesium, fish oil, or vitamin B6. Take frsn-alz-rudfiir and prescription medicines only as told by [...] Casseroles. Pizza. Lasagna. Frozen meals. Potato chips. Thai fries. The items listed above may not [...] provider. Document Revised: 08/24/2022 Document Reviewed: 08/24/2022 [employer] Patient Education 2022 [employer]. Follow Up Care 08/06/2023 16:00:40 With:OVI HERBERT, Seb Talavera, URL Address: [address] [place], [place] [id number]- When: Unknown [facility] 11-23-2023 Note Patient Education Nephrology Dietary Guidelines [...] ? 8 oz (237 mL) of milk, zfwitkm-jzwfiaoquvsi-swsjm milk, and calcium-fortifiedfruit juice. Calcium-fortified means that [...] Spinach (cooked), rhubarb, beets, sweet potatoes, and Venezuelan chard. ? Peanuts. ? Potato chips, salvadorean fries, and baked potatoes with skin on. ? Nuts and nut products. ? Chocolate. ? If you regularly take a diuretic medicine, make sure to eat at least 1 or 2 servings of fruits or vegetables that are high in potassium each day. These include: ? Avocado. ? Banana. ? Kent, prune, carrot, or tomato juice. ? Baked [...] fish oil, or vitamin B6. ? Take zwat-jqt-gpgaxyo and prescription medicines only as told by your health care provider. These include suppleme (more content not included)... [facility] 08-06-2023 Hospital Discharge instructions Patient Education 08/06/2023 15:55:34 Dietary Guidelines [...] include: ?8 oz (237 mL) of milk, cjhmhhg-ekdjvznibvwv-epkwz milk, and calcium-fortifiedfruit juice. Calcium-fortified means that [...] ?Spinach (cooked), rhubarb, beets, sweet potatoes, and Venezuelan chard. ?Peanuts. ?Potato chips, salvadorean fries, and baked potatoes with skin on. ?Nuts and nut products. ?Chocolate. If you regularly take a diuretic medicine, make sure to eat at least 1 or 2 servings of fruits or vegetables that are high in potassium each day. These include: ?Avocado. ?Banana. ?Kent, prune, carrot, or tomato juice. ?Baked potato. [...] magnesium, fish oil, or vitamin B6. Take rzin-olm-rxgndix and prescription medicines only as told by [...] Casseroles. Pizza. Lasagna. Frozen meals. Potato chips. Thai fries. The items listed above may not [...] provider. Document Revised: 08/24/2022 Document Reviewed: 08/24/2022 [employer] Patient Education 2022 [employer]. Follow Up Care 06/13/2023 15:35:42 With:Seb GRANDE MD, URL Address: [facility] [address], [place] [address] [phone] When: Unknown Comments:3-4 mos w/ metabolic workup [facility] 05-04-2023 Evaluation note Encounter Date Diagnosis Assessment Notes Apr, Sinus congestion (ICD-10 - R09.81) Apr, Influenza A (ICD-10 - J10.1) Influenza: adult home care material was printed Drink plenty fluids, get plenty of rest. Take Tylenol or Motrin as needed for aches pains or fevers. Continue home occasions as prescribed. Follow-up with your family physician if no improvement in 2 to 3 days [employer] Other Evaluation + Plan note Future Appointments Appointment Date:11/23/2023 08:45:00 AM Scheduled Provider:Seb GRANDE MD Location:[facility] Appointment Type:URO Office Visit Future Scheduled Tests Laboratory* PSA Total 08/06/23 [facility] evaluation + Plan note Future Appointments Appointment Date:11/23/2023 08:45:00 AM Scheduled Provider:Seb GRANDE MD Location:[facility] Appointment Type:URO Office Visit Diagnostic Tests Pending * PSA Total 08/06/23 Future Scheduled Tests Laboratory* PSA Total [facility] Future Appointments Appointment Date:11/21/2024 08:00:00 AM Scheduled Provider:Seb GRANDE MD Location:[facility] Appointment Type:URO Office Visit Diagnostic Tests Pending * PSA Total 09/25/24 * Creatinine 11/23/23 Future Scheduled Tests Laboratory* PSA Total 08/06/23 [facility] History general Narrative - Reported* Type Description Date Medical History HTN (hypertension) Medical History Hypercholesterolemia Medical History Heart disease Surgical History Neck Surgery Surgical History prostatectomy Surgical History cancer Surgical History hemorrhoidectomy Surgical History cardiac stent Hospitalization History see above [facility] Other Hospital course Narrative No data available for this section [facility] Hospital Discharge instructions No data available for this section [facility] No data available for this section [facility] Summary Purpose Family History No Family History Records Found No data available for this section No data available for this section No data available for this section No Family History Records FoundNo Family History Records Found Advance Directives No Advanced Directives Records FoundNo Advanced Directives Records FoundNo Advanced Directives Records Found Additional Source Comments (unrecognized sect ion and content) No Status Records FoundNo Status Records FoundNo Status Records Found INFORMATION SOURCE (unrecogn ized section and content) DATE CREATED AUTHOR 08/29/2021 [facility] DATE CREATED AUTHOR AUTHOR'S ORGANIZ ATION 11/24/2023 [facility] DATE CREATED AUTHOR AUTHOR'S ORGANIZ ATION 12/15/2023 [facility] REASON FOR VISIT (unrecogniz ed section and content) SINUS CONGESTION, COUGH, EXP OSURE TO INFLUENZA Patient Care team informatio n (unrecognized section and content) Personnel Name: SUSI JACKSON MD Address: Address: [address] [place], [place] [address] Personnel Name: SUSI JACKSON MD Address: Address: [address] [place], [place] [address] Personnel Name: SUSI JACKSON MD Address: Address: [address] [place], [place] [address] FOR RECORDS PERTAINING TO PATIENTS WHO [...] BE BASED ON THE PRIMARY CLINICAL RECORDS. [employer] [facility]. provides no warranty or guarantee of the accuracy or completeness of information in this document.
== END 2023-12-18 09:57 | disposition home or self-care (01) ==
LOC: FL 09:58
PROVIDERS: PCP Family Medicine; Visit Provider Urology
DX: N20.1 Calculus of ureter (principal)
CPT/HCPCS: 74400; Q9967

== ENCOUNTER 2024-01-16 07:58 | Outpatient (OUT) | payer MEDICARE, SELFPAY ==
[2024-01-16 09:12] LABS: Alanine Aminotransferase 35 U/L (16-63); Albumin Globulin Ratio 1.4; Albumin Level 3.9 g/dL (3.4-5.0); Alkaline Phosphatase 107 U/L (46-116); Aspartate Amino Transferase 23 U/L (15-37); Bilirubin Direct 0.2 mg/dL (0.0-0.2); Chol HDL Ratio 3.4; Cholesterol 128 mg/dL (<=200); Globulin 2.7 g/dL; HDL Cholesterol 38 mg/dL (40-60); Total Protein 6.6 g/dL (6.4-8.2); Triglycerides 101 mg/dL (<=150); VLDL CHOLESTEROL 20.2 mg/dL
== END 2024-01-16 07:59 | disposition home or self-care (01) ==
LOC: LAB 08:01
PROVIDERS: PCP Family Medicine; Visit Provider Nurse Practitioner Family
DX: E78.2 Mixed hyperlipidemia (principal)
CPT/HCPCS: 36415; 80061; 80076

== ENCOUNTER 2024-11-25 07:53 | Outpatient (OUT) | payer MEDICARE, SELFPAY ==
--- OUTSIDE RECORDS SUMMARY | 2024-11-25 08:11 | XMS_ITS | CCD ---
Author Organization [facility] Care Team Providers Care Clothes Designer Name Role Phone DR SUSI JACKSON Primary Care Unavailable OVI, DR SEVILLA Consulting Unavailable OVI, DR SEVILLA Attending Unavailable OVI, DR SEVILLA Admitting Unavailable SHANIQUA XIAO Consulting Unavailable RENETTA, DR SUSI Hernandez Primary Care Unavailable SHANIQUA XIAO Attending Unavailable SHANIQUA XIAO Admitting Unavailable Telma Mcdonald Unavailable SUSI JACKSON Primary Care Physician [phone] MARIE ISAACS Attending Unavailable SHANIQUA XIAO Attending Unavailable Seb DIOR Attending Unavailable Allergies Allergy Classification Reported Allergen(s) Allergy Type Date of Onset Reaction(s) Facility (1 source) Sulfonamides (Antibiotic) Drug allergy (disorder) 9 [facility] Repository (5 sources) Sulfonamides (Antibiotic); Translations: [sulfa drugs] Drug allergy Mild (qualifier value) [facility] (1 source) ALLERGIES NOT ON FILE; Translations: [ALLERGIES NOT ON FILE] Propensity to adverse reactions (disorder) [facility] Repository (1 source) No Known Medication Allergies; Translations: [No Known Medication Allergies] Propensity to adverse reactions (disorder) [facility] Repository Medications Current Medications Medication Drug Class(es) Dates Sig (Normalized) Sig (Original) amLODIPine 10 mg oral tablet (5 sources) Dihydropyridine Calcium Channel Noel Start: 09-09-2019 take 1 tablet by mouth once daily amLODIPine 10 mg Tab 10 mg = 1 tab(s), Oral, Daily Start Date: 09/09/19 Status: Ordered Repeat number: 1 Aspir-81 81 MG (1 source) Aspir-81 81 MG Orally Active aspirin 81 mg chewable tablet (4 sources) Platelet Aggregation Inhibitor, Nonsteroidal Anti-inflammatory Drug Start: 09-09-2019 aspirin 81 mg Chew Tab 81 mg = 1 tab(s), Chewed, Daily Start Date: 09/09/19 Status: Ordered Repeat number: 1 atorvastatin 80 mg oral tablet (6 sources) HMG-CoA Reductase Inhibitor Start: 09-09-2019 take 1 tablet by mouth once daily atorvastatin 80 mg Tab 80 mg = 1 tab(s), Oral, Daily Start Date: 09/09/19 Status: Ordered Repeat number: 1 take 1 tablet by faheem th every twenty-four hours Atorvastatin Calcium 40 MG 1 tablet Oral ly Once a day Active Calcium Carbonate / Famotidine / Magnesium Hydroxide (1 source) Histamine-2 Receptor Antagonist Pepcid Complete Active Pepcid (4 sources) Histamine-2 Receptor Antagonist Start: 09-19-2019 Pepcid Refills(s) 0 Start Date: 09/19/19 Status: Ordered Repeat number: 1 Start: 09-19-2019 Pepcid Refills (s) 0 Start Date: 09/19/19 Status: Ordered lisinopril 40 mg oral tablet (6 sources) Angiotensin Converting Enzyme Inhibitor Start: 09-09-2019 take 1 tablet by mouth once daily lisinopril 40 mg Tab 40 mg = 1 tab(s), Oral, Daily Start Date: 09/09/19 Status: Ordered Repeat number: 1 Prinivil 20 MG O rally Not-Taking/PRN 24 hr metoprolol succinate 25 mg extended release oral tablet (6 sources) beta-Adrenergic Noel Start: 09-09-2019 metopr olol 25 mg ER Tab 12.5 mg = 0.5 tab(s), Oral, BID Start Date: 09/09/19 Status: Ordered Repeat number: 1 take 1 capsule by mouth once mathew [...] Documented Date Episodic/Chronic Calculus of urinary tract (9 sources) Kidney stone; Translations: [Calculus of kidney] Onset: 08-06-2023 Episodic Cancer of prostate (10 sources) Personal history of malignant neoplasm of prostate; Translations: [History of malignant neoplasm of prostate] Onset: 08-24-2021 Episodic Cardiac dysrhythmias (4 sources) Atrial fibrillation 09-09-2019 Chronic Cardiac dysrhythmias (2 sources) Bradycardia, unspecified; Translations: [Bradycardia, unspecified] Onset: 11-05-2024 Episodic Coronary atherosclerosis and other heart disease (6 sources) Atherosclerotic heart disease of [place] coronary artery without angina pectoris; Translations: [ASHD NEZ PERCE CA W/O ANGINA PECTORIS] Onset: 07-08-2021 Chronic Coronary atherosclerosis and other heart disease (2 sources) Presence of coronary angioplasty implant and graft; Translations: [Presence of coronary angioplasty implant and graft] Onset: 11-05-2024 Episodic Disorders of lipid metabolism (6 sources) Hyperlipidemia; Translations: [Mixed hyperlipidemia] Onset: 03-01-2022 09-09-2019 Chronic Esophageal disorders (4 sources) Gastroesophageal reflux disease 09-09-2019 Chronic Essential hypertension (6 sources) Hypertensive disorder; Translations: [Essential (primary) hypertension] Onset: 11-05-2024 09-09-2019 Chronic Genitourinary symptoms and ill-defined conditions (5 sources) Stress incontinence (female) (male); Translations: [Male urinary stress incontinence] Onset: 08-26-2021 09-09-2019 Chronic Hyperplasia of prostate (4 sources) Benign prostatic hypertrophy with outflow obstruction 09-19-2019 Chronic Influenza (1 source) Influenza due to other identified influenza virus with other respiratory manifestations Episodic Other aftercare (4 sources) Long-term current use of anticoagulant 09-09-2019 Episodic Other screening for suspected conditions (not mental disorders or infectious disease) (8 sources) Raised prostate specific antigen 09-19-2019 Episodic Other upper respiratory disease (1 source) Nasal congestion Episodic Results Test Name Value Interpretation Reference Range Facil ity Office Visiton 11-05-2024 Follow-up visit [id number] Jermaine Bosch 1950 M Date Provider Department Center 11/05/2024 MARIE DAWKINS PINA [facility] Family History Problem Relation Age of Onset Coronary artery disease Mother Coronary artery disease Father Family Status - Relation Status Age at Mother Father Level of Service:72917 NC OFFICE/OUTPATIENT ESTABLISHED MOD MDM 30 MIN Normal [facility] Office Visiton 12-12-2023 Follow-up visit [id number] Jermaine Bosch 1950 M Date Provider Department Center 12/12/2023 SHANIQUA ROSARIO [facility] Family History Problem Relation Age of Onset Coronary artery disease Mother Coronary artery disease Father Family Status - Relation Status Age at Mother Father Level of Service:78568 NC OFFICE/OUTPATIENT ESTABLISHED MOD MDM 30 MIN Reason for Visit and Comments: Follow-up [400085] - Yearly follow up Normal [facility] COVID/FLU RT-PCRon 3 SARS-CoV-2 (COVID-19) RNA MAIKEL+probe Ql (Unsp spec) Negative [facility] Other COVID/FLU RT-PCR Positive [facility] Other COVID/FLU RT-PCR Negative [facility] [facility] Other CBC AUTO DIFFon 07-08-2021 BASO # 0.0 103/ul Normal 0.0-0.1 [facility] Comment on above: Performed By: #### C BC #### [facility] [address] [address] [address] Adalberto Sierra Basophils/100 WBC (Bld) 0.6 % Normal 0.2-2.0 [facility] Comment on above: Performed By: #### C BC #### [facility] [address] [address] [address] Adalberto Sierra EO # 0.2 103/ul Normal 0.0-0.7 [facility] Comment on above: Performed By: #### C BC #### [facility] [address] [place] [address] Dr. Adalberto Sierra Eosinophils/100 WBC (Bld) 3.0 % Normal 0.9-7.0 [facility] Comment on above: Performed By: #### C BC #### [facility] [address] [place] [address] Dr. Adalberto Sierra Erythrocyte distribution width (RBC) [Ratio] 13.4 % Normal 11.0-15.0 [facility] Comment on above: Performed By: #### C BC #### [facility] [address] [place] [address] Dr. Adalberto Sierra Hematocrit (Bld) [Volume fraction] 41.6 % Critically low 42.0-54.0 [facility] Comment on above: Performed By: #### C BC #### [facility] [address] [place] [address] Dr. Adalberto Sierra Hemoglobin (Bld) [Mass/Vol] 13.5 g/dL Critically low 14.0-18.0 [facility] Comment on above: Performed By: #### C BC #### [facility] [address] [place] [address] Dr. Adalberto Sierra IG # 0.01 10e3/ul Normal 0.00-0.03 [facility] Comment on above: Performed By: #### C BC #### [facility] [address] [place] [address] Dr. Adalberto Sierra IG % 0.2 % Normal 0.0-0.5 [facility] Comment on above: Performed By: #### C BC #### [facility] [address] [place] [address] Dr. Adalberto Sierra LYMPH # 2.0 103/ul Normal 1.2-3.8 [facility] Comment on above: Performed By: #### C BC #### [facility] [address] [place] [address] Dr. Adalberto Sierra Lymphocytes/100 WBC (Bld) 31.9 % Normal 20.5-60.0 [facility] Comment on above: Performed By: #### C BC #### [facility] [address] [place] [address] Dr. Adalberto Sierra MANUAL DIFF REQ NO Normal [facility] Comment on above: Performed By: #### C BC #### [facility] [address] [place] [address] Dr. Adalberto Sierra MCH (RBC) [Entitic mass] 28.8 pg Normal 25.9-34.0 [facility] Comment on above: Performed By: #### C BC #### [facility] [address] [place] [address] Dr. Adalberto Sierra MCHC (RBC) [Mass/Vol] 32.5 g/dL Normal 29.9-35.2 [facility] Comment on above: Performed By: #### C BC #### [facility] [address] [place] [address] Dr. Adalberto Sierra MCV (RBC) [Entitic vol] 88.9 fL Normal 80.0-94.0 [facility] Comment on above: Performed By: #### C BC #### [facility] [address] [place] [address] Dr. Adalberto Sierra MONO # 0.5 103/ul Normal 0.3-0.8 [facility] Comment on above: Performed By: #### C BC #### [facility] [address] [place] [address] Dr. Adalberto Sierra Monocytes/100 WBC (Bld) 7.2 % Normal 1.7-12.0 [facility] Comment on above: Performed By: #### C BC #### [facility] [address] [place] [address] Dr. Adalberto Sierra NEUT # 3.6 103/ul Normal 1.4-6.5 [facility] Comment on above: Performed By: #### C BC #### [facility] [address] [place] [address] Dr. Adalberto Sierra Neutrophils/100 WBC (Bld) 57.1 % Normal 43.0-75.0 [facility] Comment on above: Performed By: #### C BC #### [facility] [address] [place], [place] [id number] Dr. Adalberto Sierra Platelet mean volume (Bld) [Entitic vol] 9.3 fL Critically low 9.5-13.5 [facility] Comment on above: Performed By: #### C BC #### [facility] [address] [place] [address] Dr. Adalberto Sierra PLT 154 103/ul Normal 150-450 [facility] Comment on above: Performed By: #### C BC #### [facility] [address] [address] [address] Adalberto Sierra RBC 4.68 106/ul Critically low 4.70-6.10 [facility] Comment on above: Performed By: #### C BC #### [facility] [address] [place] [address] Dr. Adalberto Sierra WBC 6.4 103/ul Normal 4.0-11.0 [facility] Comment on above: Performed By: #### C BC #### [facility] [address] [place] [address] Dr. Adalberto Sierra LIPID PROFILEon 07-08-2021 CHOL-HDL RATIO NORM SEE BELOW Normal [facility] Comment on above: Result Comment: 3.3 - 4.4 LOW RISK 4.4 - 7.1 AVERAGE RISK 7.1 - 11.0 MODERATE RISK >11.0 HIGH RISK Performed By: #### L IPID, CMP #### [facility] [address] [place] [address] Dr. Adalberto Sierra Cholesterol [Mass/Vol] 87 mg/dL Normal <=200 [facility] Comment on above: Performed By: #### L IPID, CMP #### [facility] [address] [place] [address] Dr. Adalberto Sierra Cholesterol in HDL [Mass/Vol] 32 mg/dL Normal [facility] Comment on above: Performed By: #### L IPID, CMP #### [facility] [address] [place] [address] Dr. Adalberto Sierra Cholesterol in LDL [Mass/Vol] 28.6 mg/dL Normal [facility] Comment on above: Performed By: #### L IPID, CMP #### [facility] [address] [address] [address] Adalberto Sierra Cholesterol.total/ Cholesterol in HDL [Mass ratio] 2.7 {ratio} Normal [facility] Comment on above: Performed By: #### L IPID, CMP #### [facility] [address] [address] [address] Adalberto Sierra HDL NORMAL > or = 60 mg/dl - LOW CARDIOVASCULAR RISK <40 mg/dl - HIGH CARDIOVASCULAR RISK Normal [facility] Comment on above: Performed By: #### L IPID, CMP #### [facility] [address] [address] [address] Adalberto Sierra LDL CALC NORMAL SEE BELOW Normal [facility] Comment on above: Result Comment: <100 mg/dl OPTIMAL 100 - 129 mg/dl NEAR OR ABOVE OPTIMAL 130 - 159 mg/dl BORDERLINE HIGH 160 - 189 mg/dl HIGH >190 mg/dl VERY HIGH Performed By: #### L IPID, CMP #### [facility] [address] [place] [address] Dr. Adalberto Sierra Triglyceride [Mass/Vol] 132 mg/dL Normal <=150 [facility] Comment on above: Performed By: #### L IPID, CMP #### [facility] [address] [place] [address] Dr. Adalberto Sierra VLDL CALC 26.4 mg/dL Normal [facility] Comment on above: Performed By: #### L IPID, CMP #### [facility] [address] [address] [address] Adalberto Sierra PROF 14(COMP METB)on 022 Albumin [Mass/Vol] 4.0 g/dL Normal 3.5-5.0 [facility] Comment on above: Performed By: #### L IPID, CMP #### [facility] [address] [place] [address] Dr. Adalberto Sierra Albumin/Globulin [Mass ratio] 1.4 {ratio} Normal [facility] Comment on above: Performed By: #### L IPID, CMP #### [facility] [address] [place], [place] [id number] Dr. Adalberto Sierra ALP [Catalytic activity/Vol] 102 U/L Normal 38-126 [facility] Comment on above: Performed By: #### L IPID, CMP #### [facility] [address] [place] [address] Dr. Adalberto Sierra ALT [Catalytic activity/Vol] 36 U/L Normal 21-72 [facility] Comment on above: Performed By: #### L IPID, CMP #### [facility] [address] [place] [address] Dr. Adalberto Sierra Anion gap [Moles/Vol] 11.0 mmol/L Normal [facility] Comment on above: Performed By: #### L IPID, CMP #### [facility] [address] [place] [address] Dr. Adalberto Sierra AST [Catalytic activity/Vol] 24 U/L Normal 17-59 [facility] Comment on above: Performed By: #### L IPID, CMP #### [facility] [address] [place] [address] Dr. Adalberto Sierra Bilirubin [Mass/Vol] 0.9 mg/dL Normal 0.2-1.3 [facility] Comment on above: Performed By: #### L IPID, CMP #### [facility] [address] [place] [address] Dr. Adalberto Sierra Calcium [Mass/Vol] 9.3 mg/dL Normal 8.4-10.2 [facility] Comment on above: Performed By: #### L IPID, CMP #### [facility] [address] [place] [address] Dr. Adalberto Sierra Chloride [Moles/Vol] 106 mmol/L Normal 98-107 [facility] Comment on above: Performed By: #### L IPID, CMP #### [facility] [address] [place] [address] Dr. Adalberto Sierra CO2 [Moles/Vol] 28.0 mmol/L Normal 22.0-30.0 [facility] Comment on above: Performed By: #### L IPID, CMP #### [facility] [address] [address] [address] Adalberto Sierra Creatinine [Mass/Vol] 0.84 mg/dL Normal 0.66-1.25 [facility] Comment on above: Performed By: #### L IPID, CMP #### [facility] [address] [address] [address] Adalberto Sierra EGFR-AF MARSHALLESE >60 Normal >=60 [facility] Comment on above: Performed By: #### L IPID, CMP #### [facility] [address] [address] [address] Adalberto Sierra EGFR-NON AF MARSHALLESE >60 Normal >=60 [facility] Comment on above: Performed By: #### L IPID, CMP #### [facility] [address] [address] [address] Adalberto Sierra Globulin (S) [Mass/Vol] 2.8 g/dL Normal [facility] Comment on above: Performed By: #### L IPID, CMP #### [facility] [address] [address] [address] Adalberto Sierra Glucose [Mass/Vol] 101 mg/dL Normal 74-106 [facility] Comment on above: Performed By: #### L IPID, CMP #### [facility] [address] [address] [address] Adalberto Sierra Potassium [Moles/Vol] 4.0 mmol/L Normal 3.4-5.0 [facility] Comment on above: Performed By: #### L IPID, CMP #### [facility] [address] [address] [address] Adalberto Sierra Protein [Mass/Vol] 6.8 g/dL Normal 6.1-8.2 [facility] Comment on above: Performed By: #### L IPID, CMP #### [facility] [address] [address] [address] Adalberto Sierra Sodium [Moles/Vol] 141 mmol/L Normal 137-145 [facility] Comment on above: Performed By: #### L IPID, CMP #### [facility] [address] [address] [address] Adalberto Sierra Urea nitrogen [Mass/Vol] 12.0 mg/dL Normal 9.0-20.0 [facility] Comment on above: Performed By: #### L IPID, CMP #### [facility] [address] [place], [place] [address] Dr. Adalberto Sierra Urea nitrogen/Creatinin e [Mass ratio] 14.3 mg/mg Normal [facility] Comment on above: Performed By: #### L IPID, CMP #### [facility] [address] [place], [place] [address] Dr. Adalberto Sierra Vital Signs Date Time Vital Sign Value Performing Clinician Facility 11-23-2023 08:52-0400 Blood Pressure Location Seb DIOR [facility] 11-23-2023 08:52-0400 Diastolic blood pressure 64 mm[Hg] Seb DIOR [facility] 11-23-2023 08:52-0400 Heart rate 67 /min Seb DIOR [facility] 11-23-2023 08:52-0400 Respiratory rate 16 /min Seb DIOR [facility] 11-23-2023 08:52-0400 Systolic blood pressure 131 mm[Hg] Seb DIOR [facility] 05-04-2023 09:50-0500 Body height 175.26 cm Telma Mcdonald Other [facility] Other 05-04-2023 09:50-0500 Body mass index (BMI) [Ratio] 25.34 kg/m2 Telma Mcdonald Other [facility] Other 05-04-2023 09:50-0500 Body temperature 99.6 [degF] Telma Mcdonald Other [facility] Other 05-04-2023 09:50-0500 Body weight 77.84 kg Telma Mcdonald Other [facility] Other 05-04-2023 09:50-0500 Diastolic blood pressure 80 mm[Hg] Telma Mcdonald Other [facility] Other 05-04-2023 09:50-0500 Respiratory rate 18 /min Telma Mcdonald Other [facility] Other 05-04-2023 09:50-0500 SaO2% (BldA) [Mass fraction] 96 % Telma Mcdonald Other [facility] Other 05-04-2023 09:50-0500 Systolic blood pressure 134 mm[Hg] Telma Mcdonald Other [facility] Other Encounters Encounter Date Encounter Type Care Provider Facility Start: 11-21-2024 End: 11-21-2024 ambulatory Seb DIOR Facility:[facility] Start: 11-21-2024 End: 11-21-2024 Patient encounter procedure Seb DIOR [facility] Start: 11-05-2024 End: 11-05-2024 ambulatory [facility] Start: 12-12-2023 End: 12-12-2023 ambulatory SHANIQUA [facility] Start: 11-23-2023 End: 11-23-2023 Patient encounter procedure Seb DIOR [facility] Start: 08-06-2023 End: 08-06-2023 Lab Drop off Seb DIOR [facility] Start: 08-06-2023 End: 08-06-2023 Patient encounter procedure Seb DIOR [facility] Start: 05-04-2023 End: 05-04-2023 ambulatory Telma Mcdonald Other [facility] Other Start: 05-04-2023 Office outpatient ne w 20 minutes Telma Mcdonald [facility] Start: 08-24-2021 End: 08-25-[address] SUSI JACKSON Facility:[facility] Start: 07-08-2021 End: 07-09-2021 ambulatory SHANIQUA XIAO Facility:[facility] Procedures Date Procedure Procedure Detail Performing Clinician Start: 08-24-[address] SUSI BURDICK Comment on above: Performed By: #### P SAD #### [facility] [address] [place] [address] Dr. Adalberto Sierra Start: 10-14-2008 Prostatectomy Seb ARCE Start: 06-30-2008 Transrectal biopsy o f prostate using ultrasound guidance Seb DIOR Biopsy of skin Seb GET Harden Discectomy of spine Seb DIOR Hemorrhoidectomy Seb CARLINE RAMIREZ Placement of stent Seb ARCE Immunizations Immunization Date Immunization Notes Care Provider Sruthi watt 08-31-2020 SARS-CoV-2 (COVID-19 ) mRNA BNT-162b2 vax Sebjonathan DIOR [facility] 08-10-2020 SARS-CoV-2 (COVID-19 ) mRNA BNT-162b2 vax Seb DIOR [facility] Comment on above: Result Comment: 2023: [id number] 03-25-2020 influenza virus vaccine, unspecified formulation Seb DIOR [facility] 03-08-2020 influenza virus vaccine, unspecified formulation Seb DIOR [facility] Payers Date Payer Category Payer Medicare [id number] 2019 Private Health Insurance [facility] [id number] 1960 Medicare [id number] 1960 Unknown [id number] 1950 Unknown [id number] 1950 Unknown [id number] 1950 Unknown [id number] Social History Date Type Detail Facility Unknown if ever smoked [facility] Other Sex Assigned At [facility] Start: 08-06-2023 End: 11-23-2023 Tobacco smoking status Never smoked tobacco (finding) [facility] Tobacco smoking status Never [facility] Sexual Orientation [facility] Start: 02-27-2019 Sex Male (finding) [facility] Functional Status Date Assessment Result Facility 11-23-2023 Functional Status N/A [facility] 08-06-2023 Functional Status N/A [facility] Clinical Notes 05-04-2023 to 11-05-2024 Note Date & Type Note Facility 11-05-2024 Note [place] [facility] Subjective Jermaine Bosch is a 74 y.o. year old male patient being seen for 1 year follow up. Patient states he some leg swelling after sitting for long periods of time. Patient states he has no cardiac complaints at this time Patient Active Problem List Diagnosis Coronary atherosclerosis Essential hypertension Gastroesophageal reflux disease Hyperlipidemia Family History Problem Relation Name Age of Onset Coronary artery disease Mother Coronary artery disease Father Social History Tobacco Use Smoking status: Never Smokeless tobacco: Never Substance Use Topics Alcohol use: Not Currently Drug use: Never HPI Jermaine is here for follow up on CAD [...] with Lyme disease after a trip to [place] in December 2013. He was treated. In 06/2021 due to LDL being 29, his atorvastatin was reduced from 80 to 40 mg daily. Today he is seen in follow-up. He has been doing well. he denies chest pain, shortness of breath, palpitations, dizziness, syncope and leg edema. he has good exercise tolerance. There is no claudication. Review of Systems All other systems reviewed and are negative. Objective Visit Vitals BP 139/77 (BP Location: Left arm, Patient Position: Sitting) Pulse 77 Ht 1.753 m (5' 9 ) Wt 77.6 kg (171 lb) SpO2 93% BMI 25.25 kg/m??? Smoking Status Never BSA 1.94 m??? Physical Exam Constitutional: Appearance: [...] Behavior is cooperative. Judgment: Judgment normal. Allergies No Known Allergies Medications Current Outpatient Medications: amLODIPine (Norvasc) 10 mg tablet, TAKE 1 TABLET BY MOUTH EVERY DAY IN THE MORNING, Disp: 90 tablet, Rfl: 1 aspirin 81 mg EC tablet, Take 1 tablet every day by oral route., Disp: , Rfl: atorvastatin (Lipitor) 40 mg tablet, take 1 tablet by mouth once daily, Disp: 90 tablet, Rfl: 3 lisinopril 40 mg tablet, TAKE 1 TABLET BY MOUTH ONCE EVERYDAY DIRECTED, Disp: 90 tablet, Rfl: 2 metoprolol tartrate (Lopressor) 25 mg tablet, Take 0.5 tablets (12.5 mg) by mouth in the morning and at bedtime., Disp: 90 tablet, Rfl: 3 Recent Labs Blood testing 01/16/2024: LFTs normal, cholesterol 126, HDL 38, LDL 70, triglycerides 101. Blood testing 12/07/2022: CBC - unremarkable, Cr 0.86, BUN 20, K 4, eGFR >60, AST 25, ALT 30, Chol 120, trig 121, LDL 60, HDL 36 Blood testing 07/08/2021: CBC, CMP w/n normal, TG 132, LDL 29. 04/02/2018: LDL 57. TG 65. CBC, BMP, LFTs, CPK normal. BMP 07/2016 was within normal. LDL 05/2020: 60 Imaging and other tests ECG 12/12/2023: Sinus bradycardia with PACs, right bundle branch block. A stress test on 11/14/2018: No acute [...] for this visit: Coronary artery disease involving [place] coronary artery of [place] heart without angina pectoris Mixed hyperlipidemia - CBC and differential; Future - Comprehensive metabolic panel; Future - Lipid panel; Future Bradycardia - TSH; Future - T4, free; Future Luciana (more content not included)... [facility] 12-12-2023 Note Cardiovascular Medic [facility] SUBJECTIVE Chief Complaint Patient presents with [...] all orders for this visit: Atherosclerosis of [place] coronary artery of [place] heart without angina pectoris Bradycardia - ECG [...] and lopressor 12.5 (more content not included)... [facility] 11-23-2023 Hospital Discharge instructions Patient Education 11/23/2023 [...] include: ?8 oz (237 mL) of milk, ewrcekh-kqvmncgdrrqx-evuet milk, and calcium-fortifiedfruit juice. Calcium-fortified means that [...] ?Spinach (cooked), rhubarb, beets, sweet potatoes, and Zimbabwean chard. ?Peanuts. ?Potato chips, cambodian fries, and baked potatoes with skin on. ?Nuts and nut products. ?Chocolate. If you regularly take a diuretic medicine, make sure to eat at least 1 or 2 servings of fruits or vegetables that are high in potassium each day. These include: ?Avocado. ?Banana. ?[place], prune, carrot, or tomato juice. ?Baked potato. [...] magnesium, fish oil, or vitamin B6. Take eoqo-fcn-abyzqdx and prescription medicines only as told by [...] Casseroles. Pizza. Lasagna. Frozen meals. Potato chips. Kosovan fries. The items listed above may not [...] provider. Document Revised: 08/24/2022 Document Reviewed: 08/24/2022 Elsevier Patient Education 2022 [employer]. Follow Up Care 08/06/2023 16:00:40 With:OVI HERBERT, Seb Talavera, URL Address: [address] [place] [id number] When: Unknown [facility] 08-06-2023 Hospital Discharge instructions Patient Education [...] include: ?8 oz (237 mL) of milk, dnqamxd-navpouisfwnm-qzwzi milk, and calcium-fortifiedfruit juice. Calcium-fortified means that [...] ?Spinach (cooked), rhubarb, beets, sweet potatoes, and Zimbabwean chard. ?Peanuts. ?Potato chips, cambodian fries, and baked potatoes with skin on. ?Nuts and nut products. ?Chocolate. If you regularly take a diuretic medicine, make sure to eat at least 1 or 2 servings of fruits or vegetables that are high in potassium each day. These include: ?Avocado. ?Banana. ?[place], prune, carrot, or tomato juice. ?Baked potato. [...] magnesium, fish oil, or vitamin B6. Take ycwi-jac-gnihzut and prescription medicines only as told by [...] Casseroles. Pizza. Lasagna. Frozen meals. Potato chips. Kosovan fries. The items listed above may not [...] provider. Document Revised: 08/24/2022 Document Reviewed: 08/24/2022 [employer] Patient Education 2022 [employer]ue. Follow Up Care 06/13/2023 15:35:42 With:Seb DIOR MD, URL Address: [facility] [address], [place] [phone] When: Unknown Comments:3-4 mos w/ metabolic workup [facility] 05-04-2023 Evaluation note Encounter Date [...] no improvement in 2 to 3 days [facility] Other Evaluation + Plan note Future Appointments Appointment Date:11/23/2023 08:45:00 AM Scheduled Provider:Seb DIOR MD Location:[facility] Appointment Type:URO Office Visit Future Scheduled Tests Laboratory* PSA Total 08/06/23 [facility] evaluation + Plan note Future Appointments Appointment Date:11/23/2023 08:45:00 AM Scheduled Provider:Seb DIOR MD Location:[facility] Appointment Type:URO Office Visit Diagnostic Tests Pending * PSA Total 08/06/23 Future Scheduled Tests Laboratory* [facility] Appointment Date:11/21/2024 08:00:00 AM Scheduled Provider:Seb DIOR MD Location:[facility] Appointment Type:URO Office Visit Diagnostic Tests Pending * PSA Total 09/25/24 * Creatinine 11/23/23 Future Scheduled Tests Laboratory* PSA Total 08/06/23 [facility] History general Narrative - Reported* Type Description Date Medical History HTN (hypertension) Medical History Hypercholesterolemia Medical History Heart disease Surgical History Neck Surgery Surgical History prostatectomy Surgical History cancer Surgical History hemorrhoidectomy Surgical History cardiac stent Hospitalization History see above [facility] Other Hospital course Narrative No data available for this section [facility] Hospital Discharge instructions No data available for this section [facility] No data available for this section [facility] Summary Purpose Family History No Family History Records Found No data available for this section No data available for this section No data available for this section No Family History Records Found No data available for this section No Family History Records Found Advance Directives No Advanced Directives Records FoundNo Advanced Directives Records FoundNo Advanced Directives Records Found Additional Source Comments (unrecognized sect ion and content) No Status Records FoundNo Status Records FoundNo Status Records Found INFORMATION SOURCE (unrecogn ized section and content) DATE CREATED AUTHOR 08/29/2021 [facility] DATE CREATED AUTHOR AUTHOR'S ORGANIZ ATION 11/08/2024 [facility] DATE CREATED AUTHOR AUTHOR'S ORGANIZ ATION 11/23/2024 [facility] REASON FOR VISIT (unrecogniz ed section and content) SINUS CONGESTION, COUGH, EXP OSURE TO INFLUENZA Patient Care team informatio n (unrecognized section and content) Personnel Name: SUSI JACKSON MD Address: Address: [address] [place], [place] [address]HERSON Jose R [address] Personnel Name: SUSI JACKSON MD Address: Address: [address] [place], [place] [address] [id number] Personnel Name: SUSI JACKSON MD Address: Address[address] [place] [id number] Personnel Name: SUSI JACKSON MD Address: [address] [place] [id number] [employer]: FOR RECORDS PERTAINING TO PATIENTS WHO ARE [...] BE BASED ON THE PRIMARY CLINICAL RECORDS. [facility] [employer] [facility]. provides no warranty or guarantee of the accuracy or completeness of information in this document.
[2024-11-25 08:25] LABS: Hematocrit 41.3 % (42.0-54.0); Hemoglobin 13.6 g/dL (14.0-18.0); Immature Granulocytes Abs Auto 0.01 10^3/uL (0.00-0.03); Immature Granulocytes Pct Auto 0.1 % (0.0-0.5); Lymphocytes Absolute Auto 1.9 10^3/uL (1.2-3.8); Mean Corpuscular HGB Conc 32.9 g/dL (29.9-35.2); Mean Corpuscular Hemoglobin 29.3 pg (25.9-34.0); Mean Corpuscular Volume 89.0 fL (80.0-94.0); Platelet Count 153 10^3/uL (150-450); Red Blood Count 4.64 10^6/uL (4.70-6.10); White Blood Count 6.8 10^3/uL (4.0-11.0)
[2024-11-25 09:16] LABS: Alanine Aminotransferase 28 U/L (16-63); Albumin Globulin Ratio 1.4; Albumin Level 3.8 g/dL (3.4-5.0); Alkaline Phosphatase 103 U/L (46-116); Anion Gap 14.3; Aspartate Amino Transferase 29 U/L (15-37); Blood Urea Nitrogen 15.0 mg/dL (7.0-18.0); Calcium 9.1 mg/dL (8.5-10.1); Carbon Dioxide 26.7 mmol/L (21.0-32.0); Chloride 108 mmol/L (98-107); Cholesterol 121 mg/dL (<=200); Estimated GFR (African America >60 (>=60 mL/min/1.73m^2); Estimated GFR (Non-African Ame >60 (>=60 mL/min/1.73m^2); Globulin 2.8 g/dL; Glucose 102 mg/dL (74-106); HDL Cholesterol 43 mg/dL (40-60); Potassium 4.0 mmol/L (3.5-5.1); Sodium 145 mmol/L (136-145); Thyroid Stimulating Hormone 2.050 uIU/mL (0.358-3.740); Total Protein 6.6 g/dL (6.4-8.2); Triglycerides 87 mg/dL (<=150); VLDL CHOLESTEROL 17.4 mg/dL
== END 2024-11-25 07:54 | disposition home or self-care (01) ==
LOC: LAB 07:56
PROVIDERS: PCP Family Medicine; Visit Provider Internal Medicine Interventional Cardiology
DX: E78.2 Mixed hyperlipidemia (principal); I10 Essential (primary) hypertension; R00.1 Bradycardia, unspecified
CPT/HCPCS: 36415; 80053; 80061; 84439; 84443; 85025

== ENCOUNTER 2025-01-28 07:57 | Outpatient (OUT) | payer MEDICARE, SELFPAY ==
--- OUTSIDE RECORDS SUMMARY | 2025-01-28 08:08 | XMS_ITS | CCD ---
Author Organization 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 Name Role Phone DR SUSI JACKSON Primary Care Unavailable OVI, DR SEVILLA Consulting Unavailable OVI, DR SEVILLA Attending Unavailable OVI, DR SEVILLA Admitting Unavailable SHANIQUA XIAO Consulting Unavailable RENETTA, DR SUSI Hernandez Primary Care Unavailable SHANIQUA XIAO Attending Unavailable SHANIQUA XIAO Admitting Unavailable Telma Mcdonald Unavailable SUSI JACKSON Primary Care Physician [phone] MARIE ISAACS Attending Unavailable SHANIQUA XIAO Attending Unavailable Seb DIOR Attending Unavailable Seb DIOR Attending Unavailable Allergies Allergy Classification Reported Allergen(s) Allergy Type Date of Onset Reaction(s) Facility (1 source) Sulfonamides (Antibiotic) Drug allergy (disorder) 9 [facility] Repository (5 sources) Sulfonamides (Antibiotic); Translations: [sulfa drugs] Drug allergy Mild (qualifier value) [facility] (1 source) ALLERGIES NOT ON FILE; Translations: [ALLERGIES NOT ON FILE] Propensity to adverse reactions (disorder) [facility] (1 source) No Known Medication Allergies; Translations: [No Known Medication Allergies] Propensity to adverse reactions (disorder) [facility] Repository Medications Current Medications Medication Drug Class(es) [...] disease (6 sources) Atherosclerotic heart disease of [place] coronary artery without angina pectoris; Translations: [ASHD [place] W/O ANGINA PECTORIS] Onset: 07-08-2021 Chronic [...] Test Name Value Interpretation Reference Range Facil rogerio Provider Letteron 12-16-2024 Provider Letter Provider Letter December 16, 2024 JERMAINE BOSCH [address] [address] : 1950 Dear Jermaine, We have been trying to reach you with no success. It is important that you return our call regarding rescheduling appt upon receiving this letter. Also, at the time of your call, please provide us with your current information. Thank you for your prompt attention to this matter. Sincerely, [facility] [address] [place] [address] [facility] 36on 12-02-2024 36 Regarding lab results from 11/25/2024: MD Lyudmila Latif MA Blood testing is ok, follow up in 1 year. LM on . Normal [facility] Office Visiton 11-05-2024 Follow-up visit [id number] Jermaine Bosch 1950 M [facility] Provider Department Center 11/05/2024 MARIE DAWKINS PINA [facility] Family History Problem Relation Age of Onset Coronary artery disease Mother Coronary artery disease Father Family Status - Relation Status Age at Mother Father Level of Service:56984 RI OFFICE/OUTPATIENT ESTABLISHED MOD MDM 30 MIN Normal [facility] Office Visiton 12-12-2023 Follow-up visit [id number] Jake Boschyudy Beckford 1950 M Date Provider Department Center 12/12/2023 SHANIQUA ROSARIO [facility] Vladislav [facility] Family History Problem Relation Age of Onset Coronary artery disease Mother Coronary artery disease Father Family Status - Relation Status Age at Mother Father Level of Service:21277 RI OFFICE/OUTPATIENT ESTABLISHED MOD MDM 30 MIN Reason for Visit and Comments: Follow-up [306933] - Yearly follow up [facility] COVID/FLU RT-PCRon 3 SARS-CoV-2 (COVID-19) RNA MAIKEL+probe Ql (Unsp spec) Negative [employer] Other COVID/FLU RT-PCR Positive [employer] Other COVID/FLU RT-PCR Negative [employer] Other CBC AUTO DIFFon 07-08-2021 BASO # 0.0 103/ul Normal 0.0-0.1 [facility] Comment on above: Performed By: #### C BC #### [facility] [address] [place] [address] Dr. Adalberto Sierra Basophils/100 WBC (Bld) 0.6 % Normal 0.2-2.0 [facility] Comment on above: Performed By: #### C BC #### [facility] [address] [place] [address] Dr. Adalberto Sierra EO # 0.2 103/ul Normal 0.0-0.7 [facility] Comment on above: Performed By: #### C BC #### [facility] [address] [place] [address] Dr. Adalberto Sierra Eosinophils/100 WBC (Bld) 3.0 % Normal 0.9-7.0 [facility] Comment on above: Performed By: #### C BC #### [facility] [address] [place] [address] Dr. Adalberto Sierra Erythrocyte distribution width (RBC) [Ratio] 13.4 % Normal 11.0-15.0 [facility] Comment on above: Performed By: #### C BC #### [facility] [address] [place] [address] Dr. Adalberto Sierra Hematocrit (Bld) [Volume fraction] 41.6 % Critically low 42.0-54.0 [facility] Comment on above: Performed By: #### C BC #### [facility] [address] [place] [address] Dr. Adalberto Sierra Hemoglobin (Bld) [Mass/Vol] 13.5 g/dL Critically low 14.0-18.0 [facility] Comment on above: Performed By: #### C BC #### [facility] [address] [place] [address] Dr. Adalberto Sierra IG # 0.01 10e3/ul Normal 0.00-0.03 [facility] Comment on above: Performed By: #### C BC #### [facility] [address] [place] [address] Dr. Adalberto Sierra IG % 0.2 % Normal 0.0-0.5 [facility] Comment on above: Performed By: #### C BC #### [facility] [address] [place] [address] Dr. Adalberto Sierra LYMPH # 2.0 103/ul Normal 1.2-3.8 [facility] Comment on above: Performed By: #### C BC #### [facility] [address] [place] [address] Dr. Adalberto Sierra Lymphocytes/100 WBC (Bld) 31.9 % Normal 20.5-60.0 [facility] Comment on above: Performed By: #### C BC #### [facility] [address] [place] [address] Dr. Adalberto Sierra MANUAL DIFF REQ NO Normal [facility] Comment on above: Performed By: #### C BC #### [facility] [address] [place] [address] Dr. Adalberto Sierra MCH (RBC) [Entitic mass] 28.8 pg Normal 25.9-34.0 [facility] Comment on above: Performed By: #### C BC #### [facility] [address] [place] [address] Dr. Adalberto Sierra MCHC (RBC) [Mass/Vol] 32.5 g/dL Normal 29.9-35.2 [facility] Comment on above: Performed By: #### C BC #### [facility] [address] [place] [address] Dr. Adalberto Sierra MCV (RBC) [Entitic vol] 88.9 fL Normal 80.0-94.0 [facility] Comment on above: Performed By: #### C BC #### [facility] [address] [place] [address] Dr. Adalberto Sierra MONO # 0.5 103/ul Normal 0.3-0.8 [facility] Comment on above: Performed By: #### C BC #### [facility] [address] [address] [address] Adalberto Sierra Monocytes/100 WBC (Bld) 7.2 % Normal 1.7-12.0 [facility] Comment on above: Performed By: #### C BC #### [facility] [address] [address] [address] Adalberto Sierra NEUT # 3.6 103/ul Normal 1.4-6.5 [facility] Comment on above: Performed By: #### C BC #### [facility] [address] [address] [address] Adalberto Sierra Neutrophils/100 WBC (Bld) 57.1 % Normal 43.0-75.0 [facility] Comment on above: Performed By: #### C BC #### [facility] [address] [address] [address] Adalberto Sierra Platelet mean volume (Bld) [Entitic vol] 9.3 fL Critically low 9.5-13.5 [facility] Comment on above: Performed By: #### C BC #### [facility] [address] [address] [address] Adalberto Sierra PLT 154 103/ul Normal 150-450 [facility] Comment on above: Performed By: #### C BC #### [facility] [address] [address] [address] Adalberto Sierra RBC 4.68 106/ul Critically low 4.70-6.10 [facility] Comment on above: Performed By: #### C BC #### [facility] [address] [address] [address] Adalberto Sierra WBC 6.4 103/ul Normal 4.0-11.0 [facility] Comment on above: Performed By: #### C BC #### [facility] [address] [address] [address] Adalberto Sierra LIPID PROFILEon 07-08-2021 CHOL-HDL RATIO NORM SEE BELOW Normal [facility] Comment on above: Result Comment: 3.3 - 4.4 LOW RISK 4.4 - 7.1 AVERAGE RISK 7.1 - 11.0 MODERATE RISK >11.0 HIGH RISK Performed By: #### L IPID, CMP #### [facility] [address] [place] [address] Dr. Adalberto Sierra Cholesterol [Mass/Vol] 87 mg/dL Normal <=200 [facility] Comment on above: Performed By: #### L IPID, CMP #### [facility] [address] [address] [address] Adalberto Sierra Cholesterol in HDL [Mass/Vol] 32 mg/dL Normal [facility] Comment on above: Performed By: #### L IPID, CMP #### [facility] [address] [place] [address] Dr. Adalberto Sierra Cholesterol in LDL [Mass/Vol] 28.6 mg/dL Normal [facility] Comment on above: Performed By: #### L IPID, CMP #### [facility] [address] [place] [address] Dr. Adalberto Sierra Cholesterol.total/ Cholesterol in HDL [Mass ratio] 2.7 {ratio} Normal [facility] Comment on above: Performed By: #### L IPID, CMP #### [facility] [address] [place] [address] Dr. Adalberto Sierra HDL NORMAL > or = 60 mg/dl - LOW CARDIOVASCULAR RISK <40 mg/dl - HIGH CARDIOVASCULAR RISK Normal [facility] Comment on above: Performed By: #### L IPID, CMP #### [facility] [address] [place] [address] Dr. Adalberto Sierra LDL CALC NORMAL SEE BELOW Normal [facility] Comment on above: Result Comment: <100 mg/dl OPTIMAL 100 - 129 mg/dl NEAR OR ABOVE OPTIMAL 130 - 159 mg/dl BORDERLINE HIGH 160 - 189 mg/dl HIGH >190 mg/dl VERY HIGH Performed By: #### L IPID, CMP #### [facility] [address] [place] [address] Dr. Adalberto Sierra Triglyceride [Mass/Vol] 132 mg/dL Normal <=150 [facility] Comment on above: Performed By: #### L IPID, CMP #### [facility] [address] [address] [address] Adalberto Sierra VLDL CALC 26.4 mg/dL Normal [facility] Comment on above: Performed By: #### L IPID, CMP #### [facility] [address] [address] [address] Adalberto Sierra PROF 14(COMP METB)on 022 Albumin [Mass/Vol] 4.0 g/dL Normal 3.5-5.0 [facility] Comment on above: Performed By: #### L IPID, CMP #### [facility] [address] [place] [address] Dr. Adalberto Sierra Albumin/Globulin [Mass ratio] 1.4 {ratio} Normal [facility] Comment on above: Performed By: #### L IPID, CMP #### [facility] [address] [place] [address] Dr. Adalberto Sierra ALP [Catalytic activity/Vol] 102 U/L Normal 38-126 [facility] Comment on above: Performed By: #### L IPID, CMP #### [facility] [address] [place] [address] Dr. Adalberto Sierra ALT [Catalytic activity/Vol] 36 U/L Normal 21-72 [facility] Comment on above: Performed By: #### L IPID, CMP #### [facility] [address] [place] [address] Dr. Adalberto Sierra Anion gap [Moles/Vol] 11.0 mmol/L Normal [facility] Comment on above: Performed By: #### L IPID, CMP #### [facility] [address] [place] [address] Dr. Adalberto Sierra AST [Catalytic activity/Vol] 24 U/L Normal 17-59 [facility] Comment on above: Performed By: #### L IPID, CMP #### [facility] [address] [place] [address] Dr. Adalberto Sierra Bilirubin [Mass/Vol] 0.9 mg/dL Normal 0.2-1.3 [facility] Comment on above: Performed By: #### L IPID, CMP #### [facility] [address] [address] [address] Adalberto Sierra Calcium [Mass/Vol] 9.3 mg/dL Normal 8.4-10.2 [facility] Comment on above: Performed By: #### L IPID, CMP #### [facility] [address] [place] [address] Dr. Adalberto Sierra Chloride [Moles/Vol] 106 mmol/L Normal 98-107 [facility] Comment on above: Performed By: #### L IPID, CMP #### [facility] [address] [place] [address] Dr. Adalberto Sierra CO2 [Moles/Vol] 28.0 mmol/L Normal 22.0-30.0 [facility] Comment on above: Performed By: #### L IPID, CMP #### [facility] [address] [place] [address] Dr. Adalberto Sierra Creatinine [Mass/Vol] 0.84 mg/dL Normal 0.66-1.25 [facility] Comment on above: Performed By: #### L IPID, CMP #### [facility] [address] [place] [address] Dr. Adalberto Sierra EGFR-AF SAMMARINESE >60 Normal >=60 [facility] Comment on above: Performed By: #### L IPID, CMP #### [facility] [address] [place] [address] Dr. Adalberto Sierra EGFR-NON AF SAMMARINESE >60 Normal >=60 [facility] Comment on above: Performed By: #### L IPID, CMP #### [facility] [address] [place] [address] Dr. Adalberto Sierra Globulin (S) [Mass/Vol] 2.8 g/dL Normal [facility] Comment on above: Performed By: #### L IPID, CMP #### [facility] [address] [place] [address] Dr. Adalberto Sierra Glucose [Mass/Vol] 101 mg/dL Normal 74-106 [facility] Comment on above: Performed By: #### L IPID, CMP #### [facility] [address] [address] [address] Adalberto Sierra Potassium [Moles/Vol] 4.0 mmol/L Normal 3.4-5.0 [facility] Comment on above: Performed By: #### L IPID, CMP #### [facility] [address] [address] [address] Adalberto Sierra Protein [Mass/Vol] 6.8 g/dL Normal 6.1-8.2 [facility] Comment on above: Performed By: #### L IPID, CMP #### [facility] [address] [address] [address] Adalberto Sierra Sodium [Moles/Vol] 141 mmol/L Normal 137-145 [facility] Comment on above: Performed By: #### L IPID, CMP #### [facility] [address] [place] [address] Dr. Adalberto Sierra Urea nitrogen [Mass/Vol] 12.0 mg/dL Normal 9.0-20.0 [facility] Comment on above: Performed By: #### L IPID, CMP #### [facility] [address] [address] [address] Adalberto Sierra Urea nitrogen/Creatinin e [Mass ratio] 14.3 mg/mg Normal [facility] Comment on above: Performed By: #### L IPID, CMP #### [facility] [address] [place] [address] Dr. Adalberto Sierra Vital Signs Date Time Vital Sign Value Performing Clinician Facility 11-23-2023 08:52-0400 Blood Pressure Location Seb DIOR [facility] 11-23-2023 08:52-0400 Diastolic blood pressure 64 mm[Hg] Seb DIOR [facility] 11-23-2023 08:52-0400 Heart rate 67 /min Seb DIOR [facility] 11-23-2023 08:52-0400 Respiratory rate 16 /min Seb DIOR [facility] 11-23-2023 08:52-0400 Systolic blood pressure 131 mm[Hg] Seb DIOR [facility] 05-04-2023 09:50-0500 Body height 175.26 cm Telma Mcdonald Other [employer] Other 05-04-2023 09:50-0500 Body mass index (BMI) [Ratio] 25.34 kg/m2 Telma Mcdonald Other [employer] Other 05-04-2023 09:50-0500 Body temperature 99.6 [degF] Telma Mcdonald Other [employer] Other 05-04-2023 09:50-0500 Body weight 77.84 kg Telma cMdonald Other [employer] Other 05-04-2023 09:50-0500 Diastolic blood pressure 80 mm[Hg] Telma Mcdonald Other [employer] Other 05-04-2023 09:50-0500 Respiratory rate 18 /min Telma Mcdonald Other [employer] Other 05-04-2023 09:50-0500 SaO2% (BldA) [Mass fraction] 96 % Telma Mcdonald Other [employer] Other 05-04-2023 09:50-0500 Systolic blood pressure 134 mm[Hg] Telma Mcdonald Other [employer] Other Encounters Encounter Date Encounter Type Care Provider Facility Start: 02-09-2025 ambulatory Seb Spearsi ty:[facility] Start: 11-21-2024 End: 11-21-2024 ambulatory Seb DIOR Facility:[facility] Start: 11-21-2024 End: 11-21-2024 Patient encounter procedure Seb R DIOR [facility] Start: 11-05-2024 End: 11-05-2024 ambulatory [facility] Start: 12-12-2023 End: 12-12-2023 ambulatory [facility] Start: 11-23-2023 End: 11-23-2023 Patient encounter procedure Seb R OVI [facility] Start: 08-06-2023 End: 08-06-2023 Lab Drop off Seb Talavera DIOR [facility] Start: 08-06-2023 End: 08-06-2023 Patient encounter procedure Seb Talavera OVI [facility] Start: 05-04-2023 End: 05-04-2023 ambulatory Telma Mcdonald Other [employer] Other Start: 05-04-2023 Office outpatient ne w 20 minutes Telma Mcdonald [facility] Start: 08-24-2021 End: 08-25-[address] SUSI JACKSON Facility:[facility] Start: 07-08-2021 End: 07-09-2021 ambulatory SHANIQUA XIAO Facility:[facility] Procedures Date Procedure Procedure Detail Performing Clinician Start: 08-24-[address] SUSI BURDICK Comment on above: Performed By: #### P SAD #### [facility] [address] [address] [address] Adalberto Sierra Start: 10-14-2008 Prostatectomy Seb ARCE Start: 06-30-2008 Transrectal biopsy o f prostate using ultrasound guidance Seb DIOR Biopsy of skin Seb Harden Discectomy of spine Seb DIOR Hemorrhoidectomy Seb CROWLEY JAMES Placement of stent Seb Loo BRIANBRUNA Immunizations Immunization Date Immunization Notes Care Provider Sruthi watt 08-31-2020 SARS-CoV-2 (COVID-19 ) mRNA BNT-162b2 vax Seb DIOR [facility] 08-10-2020 SARS-CoV-2 (COVID-19 ) mRNA BNT-162b2 vax Seb DIOR [facility] Comment on above: Result Comment: 2023: [id number] 03-25-2020 influenza virus vaccine, unspecified formulation Seb DIOR [facility] 03-08-2020 influenza virus vaccine, unspecified formulation Seb DIOR [facility] Payers Date Payer Category Payer Medicare [id number] 2019 Private Health Insurance [id number] 1959 Medicare [id number] 1960 Unknown [id number] 1950 Unknown [id number] 1950 Unknown [id number] [id number] [id number] 1950 Unknown [id number] [id number] [id number] 1950 Unknown [id number] Social History Date Type Detail Facility Unknown if ever smoked [employer] Other Sex Assigned At [facility] Start: 08-06-2023 End: 11-23-2023 Tobacco smoking status Never smoked tobacco (finding) [facility] Tobacco smoking status Never [facility] Sexual Orientation [facility] Start: 02-27-2019 Sex Male (finding) [facility] Functional Status Date Assessment Result Facility 11-23-2023 Functional Status N/A [facility] 08-06-2023 Functional Status N/A [facility] Clinical Notes 05-04-2023 to 11-05-2024 Note Date & Type Note Facility 11-05-2024 Note [facility] Subjective Jermaine Bosch is a 74 [...] with Lyme disease after a trip to [place] in December 2013. He was treated. In [...] for this visit: Coronary artery disease involving [place] coronary artery of [place] heart without angina pectoris Mixed hyperlipidemia - CBC and differential; Future - Comprehensive metabolic panel; Future - Lipid panel; Future Bradycardia - TSH; Future - T4, free; Future Luciana (more content not included)... [facility] 12[facility]12[facility]20[facility] SUBJECTIVE Chief Complaint Patient presents with [...] all orders for this visit: Atherosclerosis of [place] coronary artery of [place] heart without angina pectoris Bradycardia - ECG [...] and lopressor 12.5 (more content not included)... [facility] 11-23-2023 Hospital Discharge instructions Patient Education 11/23/2023 [...] include: ?8 oz (237 mL) of milk, mlikgpm-srcoegvprwtc-pglfk milk, and calcium-fortifiedfruit juice. Calcium-fortified means that [...] ?Spinach (cooked), rhubarb, beets, sweet potatoes, and [place] chard. ?Peanuts. ?Potato chips, icelandic fries, and baked potatoes with skin on. ?Nuts and nut products. ?Chocolate. If you regularly take a diuretic medicine, make sure to eat at least 1 or 2 servings of fruits or vegetables that are high in potassium each day. These include: ?Avocado. ?Banana. ?Rooks, prune, carrot, or tomato juice. ?Baked potato. [...] magnesium, fish oil, or vitamin B6. Take oojm-vrk-zxryfsl and prescription medicines only as told by [...] Casseroles. Pizza. Lasagna. Frozen meals. Potato chips. [place] fries. The items listed above may not [...] provider. Document Revised: 08/24/2022 Document Reviewed: 08/24/2022 [employer] Patient Education 2022 [employer]. Follow Up Care 08/06/2023 16:00:40 With:OVI HERBERT, Seb Talavera, URL Address: [address] [place] [address]- When: Unknown [facility] 08-06-2023 Hospital Discharge instructions Patient Education 08/06/2023 [...] include: ?8 oz (237 mL) of milk, fbhkmwt-adbbcpytwmwr-mnqxf milk, and calcium-fortifiedfruit juice. Calcium-fortified means that [...] ?Spinach (cooked), rhubarb, beets, sweet potatoes, and [place] chard. ?Peanuts. ?Potato chips, icelandic fries, and baked potatoes with skin on. ?Nuts and nut products. ?Chocolate. If you regularly take a diuretic medicine, make sure to eat at least 1 or 2 servings of fruits or vegetables that are high in potassium each day. These include: ?Avocado. ?Banana. ?Rooks, prune, carrot, or tomato juice. ?Baked potato. [...] magnesium, fish oil, or vitamin B6. Take fjcr-bza-espantx and prescription medicines only as told by [...] Casseroles. Pizza. Lasagna. Frozen meals. Potato chips. [place]an fries. The items listed above may not [...] provider. Document Revised: 08/24/2022 Document Reviewed: 08/24/2022 [employer] Patient Education 2022 [employer]. Follow Up Care 06/13/2023 15:35:42 With:OVI HERBERT, Seb Talavera, URL Address: [facility] [address] , [place] [address] [phone] When: Unknown Comments:3-4 mos w/ metabolic workup [facility] Vladislav 05-04-2023 Evaluation note Encounter Date Diagnosis Assessment Notes Apr, Sinus congestion (ICD-10 - R09.81) Apr, Influenza A (ICD-10 - J10.1) Influenza: adult home care material was printed Drink plenty fluids, get plenty of rest. Take Tylenol or Motrin as needed for aches pains or fevers. Continue home occasions as prescribed. Follow-up with your family physician if no improvement in 2 to 3 days [employer] Other Evaluation + Plan note Future Appointments Appointment Date:11/23/2023 08:45:00 AM Scheduled Provider:Seb DIOR MD Location:[facility] Appointment Type:URO Office Visit Future Scheduled Tests Laboratory* PSA Total 08/06/23 [facility] evaluation + Plan note Future Appointments Appointment Date:11/23/2023 08:45:00 AM Scheduled Provider:Seb DIOR MD Location:[facility] Appointment Type:URO Office Visit Diagnostic Tests Pending * PSA Total 08/06/23 Future Scheduled Tests Laboratory* [facility] Future [facility]ments Appointment Date:11/21/2024 08:00:00 AM Scheduled Provider:Seb DIOR MD Location:[facility] Appointment Type:URO Office Visit Diagnostic Tests Pending * PSA Total 09/25/24 * Creatinine 11/23/23 Future Scheduled Tests Laboratory* PSA Total 08/06/23 [facility] History general Narrative - Reported* Type Description Date Medical History HTN (hypertension) Medical History Hypercholesterolemia Medical History Heart disease Surgical History Neck Surgery Surgical History prostatectomy Surgical History cancer Surgical History hemorrhoidectomy Surgical History cardiac stent Hospitalization History see above [facility] Other Hospital course Narrative No data available for this section [facility] [place] Hospital Discharge instructions No data available for this section [facility] No data available for this section [facility] Summary Purpose Family History No Family History [...] section and content) DATE CREATED AUTHOR 08/29/2021 Chaparrita mcpherson DATE CREATED AUTHOR AUTHOR'S ORGANIZ ATION 12/06/2024 [facility] DATE CREATED AUTHOR AUTHOR'S ORGANIZ ATION 12/17/2024 [facility] REASON FOR VISIT (unrecogniz ed section and content) SINUS CONGESTION, COUGH, EXP OSURE TO INFLUENZA Patient Care team informatio n (unrecognized section and content) Personnel Name: SUSI JACKSON MD Address: Address: [address] [place] [address] Personnel Name: SUSI JACKSON MD Address: Address: [address] [place] [address] Personnel Name: SUSI JACKSON MD Address: Address: [address] [place] [address] Personnel Name: SUSI JACKSON MD Address: [address] [place], [place] [address] [employer]: FOR RECORDS PERTAINING TO PATIENTS WHO ARE [...] BE BASED ON THE PRIMARY CLINICAL RECORDS. [employer] [facility]. provides no warranty or guarantee of the accuracy or completeness of information in this document.
[2025-01-28 10:41] LABS: Prostate Specific Antigen Dx <0.13 ng/mL (<=4.00)
== END 2025-01-28 07:58 | disposition home or self-care (01) ==
LOC: LAB 07:58
PROVIDERS: PCP Family Medicine; Visit Provider Urology
DX: Z85.46 Personal history of malignant neoplasm of prostate (principal)
CPT/HCPCS: 36415; 84153

== ENCOUNTER 2025-02-10 09:13 | Outpatient (OUT) | payer MEDICARE, SELFPAY ==
--- NOTE | 2025-02-10 09:16 | XR_ITS ---
[facility] [place] [id number] Patient Name: JEREMY BAUM MRN: [id number] date: 1950 Sex: M Assigned Patient Location: RAD Current Patient Location: [facility] Accession/Order Number: [id number] Exam Date: 02/10/2025 09:20 Report Date: 02/10/2025 10:25 At the request of: ROEL DIOR MD Procedure: XR abdomen 1V SINGLE VIEW ABDOMEN COMPARISON: 12/03/2023 and 12/18/2023 IVP CLINICAL DATA: Follow-up kidney stones. Supine view of the abdomen and pelvis was obtained. There is air and stool within the colon. There is minimal small bowel air, without disproportionate distention. The right kidney is partially obscured. No suspect radiopaque renal or ureteral stones are identified. No soft tissue masses are seen. There is mild degenerative change at the spine and SI joints. There are pelvic hemostasis clips. XR/XR abdomen 1V IMPRESSION: NO RADIOPAQUE STONES. Impression dictated by: Shadia Sauceda M.D. 02/10/2025 10:25 AM Dictation Location: [place] [address] Electronically authenticated by: [id number] Y Date: 02/10/2025 10:25
--- OUTSIDE RECORDS SUMMARY | 2025-02-10 09:25 | XMS_ITS | CCD ---
Author Organization [facility] Care Team Providers Care Salesperson Stereo Equipment Name Role Phone DR SUSI JACKSON Primary Care Unavailable OVI, DR SEVILLA Consulting Unavailable OVI, DR SEVILLA Attending Unavailable OVI, DR SEVILLA Admitting Unavailable SHANIQUA XIAO Consulting Unavailable RENETTA, DR SUSI Hernandez Primary Care Unavailable SHANIQUA XIAO Attending Unavailable SHANIQUA XIAO Admitting Unavailable Telma Mcdonald Unavailable SUSI JACKSON Primary Care Physician MARIE ISAACS Attending Unavailable SHANIQUA XIAO Attending Unavailable Seb DIOR Attending Unavailable Seb DIOR Attending Unavailable Allergies Allergy Classification Reported Allergen(s) Allergy Type Date of Onset Reaction(s) Facility (1 source) Sulfonamides (Antibiotic) Drug allergy (disorder) 9 [facility] Repository (6 sources) Sulfonamides (Antibiotic); Translations: [sulfa drugs] Drug allergy Mild (qualifier value) [facility] (1 source) ALLERGIES NOT ON FILE; Translations: [ALLERGIES NOT ON FILE] Propensity to adverse reactions (disorder) [facility] Repository (1 source) No Known Medication Allergies; Translations: [No Known Medication Allergies] Propensity to adverse reactions (disorder) [facility] Repository Medications Current Medications Medication Drug Class(es) Dates Sig (Normalized) Sig (Original) amLODIPine 10 mg oral tablet (6 sources) Dihydropyridine Calcium Channel Noel Start: 09-09-2019 take 1 tablet by mouth once daily amLODIPine 10 mg Tab 10 mg = 1 tab(s), Oral, Daily Start Date: 09/09/19 Status: Ordered Repeat number: 1 Aspir-81 81 MG (1 source) Aspir-81 81 MG Orally Active aspirin 81 mg chewable tablet (5 sources) Platelet Aggregation Inhibitor, Nonsteroidal Anti-inflammatory Drug Start: 09-09-2019 aspirin 81 mg Chew Tab 81 mg = 1 tab(s), Chewed, Daily Start Date: 09/09/19 Status: Ordered Repeat number: 1 atorvastatin 80 mg oral tablet (7 sources) HMG-CoA Reductase Inhibitor Start: 09-09-2019 take [...] Histamine-2 Receptor Antagonist Pepcid Complete Active Pepcid (5 sources) Histamine-2 Receptor Antagonist Start: 09-19-2019 Pepcid Refills(s) 0 Start Date: 09/19/19 Status: Ordered Repeat number: 1 Start: 09-19-2019 Pepcid Refills (s) 0 Start Date: 09/19/19 Status: Ordered lisinopril 40 mg oral tablet (7 sources) Angiotensin Converting Enzyme Inhibitor Start: 09-09-2019 take 1 tablet by mouth once daily lisinopril 40 mg Tab 40 mg = 1 tab(s), Oral, Daily Start Date: 09/09/19 Status: Ordered Repeat number: 1 Prinivil 20 MG O rally Not-Taking/PRN 24 hr metoprolol succinate 25 mg extended release oral tablet (7 sources) beta-Adrenergic Noel Start: 09-09-2019 metopr olol [...] Documented Date Episodic/Chronic Calculus of urinary tract (12 sources) Kidney stone; Translations: [Calculus of kidney] Onset: 08-06-2023 Episodic Cancer of prostate (12 sources) Personal history of malignant neoplasm of prostate; Translations: [History of malignant neoplasm of prostate] Onset: 08-24-2021 Episodic Cardiac dysrhythmias (5 sources) Atrial fibrillation 09-09-2019 Chronic Cardiac dysrhythmias (2 sources) Bradycardia, unspecified; Translations: [Bradycardia, unspecified] Onset: 11-05-2024 Episodic Coronary atherosclerosis and other heart disease (6 sources) Atherosclerotic heart disease of [place] coronary artery without angina pectoris; Translations: [ASHD [place] W/O ANGINA PECTORIS] Onset: 07-08-2021 Chronic Coronary atherosclerosis and other heart disease (2 sources) Presence of coronary angioplasty implant and graft; Translations: [Presence of coronary angioplasty implant and graft] Onset: 11-05-2024 Episodic Disorders of lipid metabolism (7 sources) Hyperlipidemia; Translations: [Mixed hyperlipidemia] Onset: 03-01-2022 09-09-2019 Chronic Esophageal disorders (5 sources) Gastroesophageal reflux disease 09-09-2019 Chronic Essential hypertension (7 sources) Hypertensive disorder; Translations: [Essential (primary) hypertension] Onset: 11-05-2024 09-09-2019 Chronic Genitourinary symptoms and ill-defined conditions (6 sources) Stress incontinence (female) (male); Translations: [Male urinary stress incontinence] Onset: 08-26-2021 09-09-2019 Chronic Hyperplasia of prostate (5 sources) Benign prostatic hypertrophy with outflow obstruction 09-19-2019 Chronic Influenza (1 source) Influenza due to other identified influenza virus with other respiratory manifestations Episodic Other aftercare (5 sources) Long-term current use of anticoagulant 09-09-2019 Episodic Other screening for suspected conditions (not mental disorders or infectious disease) (10 sources) Raised prostate specific antigen 09-19-2019 Episodic Other upper respiratory disease (1 source) Nasal congestion Episodic Results Test Name Value Interpretation Reference Range Facil ity Provider Letteron 12-16-2024 Provider Letter Provider Letter December 16, 2024 JERMAINE BOSCH [address] [address] : 1950 Dear Jermaine, We have been trying to reach you with no success. It is important that you return our call regarding rescheduling appt upon receiving this letter. Also, at the time of your call, please provide us with your current information. Thank you for your prompt attention to this matter. Sincerely, [facility] [address] [place] [address] [facility] 36on 12-02-2024 36 Regarding lab results from 11/25/2024: MD Lyudmila Latif MA Blood testing is ok, follow up in 1 year. LM on . Normal [facility] Office Visiton 11-05-2024 Follow-up visit [id number] Jermaine Bosch 1950 M Date Provider Department Center 11/05/2024 MARIE DAWKINS PINA Rangel Family History Problem Relation Age of Onset Coronary artery disease Mother Coronary artery disease Father Family Status - Relation Status Age at Mother Father Level of Service:33802 CO OFFICE/OUTPATIENT ESTABLISHED MOD MDM 30 MIN Normal [facility] Office Visiton 12-12-2023 Follow-up visit [id number] Jermaine Bosch 1950 M Date Provider Department Center 12/12/2023 SHANIQUA ROSARIO PINA Rangel Family History Problem Relation Age of Onset Coronary artery disease Mother Coronary artery disease Father Family Status - Relation Status Age at Mother Father Level of Service:28857 CO OFFICE/OUTPATIENT ESTABLISHED MOD MDM 30 MIN Reason for Visit and Comments: Follow-up [417390] - Yearly follow up [facility] COVID/FLU RT-PCRon 3 SARS-CoV-2 (COVID-19) RNA MAIKEL+probe Ql (Unsp spec) Negative [employer] Other COVID/FLU RT-PCR Positive [employer] Other COVID/FLU RT-PCR Negative [employer] Other CBC AUTO DIFFon 07-08-2021 BASO # 0.0 103/ul Normal 0.0-0.1 [facility] Comment on above: Performed By: #### C BC #### [facility] [address] [place] [address] Dr. Adalberto Sierra Basophils/100 WBC (Bld) 0.6 % Normal 0.2-2.0 [facility] Comment on above: Performed By: #### C BC #### [facility] [address] [place] [address] Dr. Adalberto Sierra EO # 0.2 103/ul Normal 0.0-0.7 [facility] Comment on above: Performed By: #### C BC #### [facility] [address] [place] [address] Dr. Adalberto Sierra Eosinophils/100 WBC (Bld) 3.0 % Normal 0.9-7.0 [facility] Comment on above: Performed By: #### C BC #### [facility] [address] [place] [address] Dr. Adalberto Sierra Erythrocyte distribution width (RBC) [Ratio] 13.4 % Normal 11.0-15.0 [facility] Comment on above: Performed By: #### C BC #### [facility] [address] [place] [address] Dr. Adalberto Sierra Hematocrit (Bld) [Volume fraction] 41.6 % Critically low 42.0-54.0 [facility] Comment on above: Performed By: #### C BC #### [facility] [address] [place] [address] Dr. Adalberto Sierra Hemoglobin (Bld) [Mass/Vol] 13.5 g/dL Critically low 14.0-18.0 [facility] Comment on above: Performed By: #### C BC #### [facility] [address] [place] [address] Dr. Adalberto Sierra IG # 0.01 10e3/ul Normal 0.00-0.03 [facility] Comment on above: Performed By: #### C BC #### [facility] [address] [place] [address] Dr. Adalberto Sierra IG % 0.2 % Normal 0.0-0.5 [facility] Comment on above: Performed By: #### C BC #### [facility] [address] [place] [address] Dr. Adalberto Sierra LYMPH # 2.0 103/ul Normal 1.2-3.8 [facility] Comment on above: Performed By: #### C BC #### [facility] [address] [place] [address] Dr. Adalberto Sierra Lymphocytes/100 WBC (Bld) 31.9 % Normal 20.5-60.0 [facility] Comment on above: Performed By: #### C BC #### [facility] [address] [place] [address] Dr. Adalberto Sierra MANUAL DIFF REQ NO Normal [facility] Comment on above: Performed By: #### C BC #### [facility] [address] [place] [address] Dr. Adalberto Sierra MCH (RBC) [Entitic mass] 28.8 pg Normal 25.9-34.0 [facility] Comment on above: Performed By: #### C BC #### [facility] [address] [place] [address] Dr. Adalberto Sierra MCHC (RBC) [Mass/Vol] 32.5 g/dL Normal 29.9-35.2 [facility] Comment on above: Performed By: #### C BC #### [facility] [address] [place] [address] Dr. Adalberto Sierra MCV (RBC) [Entitic vol] 88.9 fL Normal 80.0-94.0 [facility] Comment on above: Performed By: #### C BC #### [facility] [address] [place] [address] Dr. Adalberto Sierra MONO # 0.5 103/ul Normal 0.3-0.8 [facility] Comment on above: Performed By: #### C BC #### [facility] [address] [address] [address] Adalberto Sierra Monocytes/100 WBC (Bld) 7.2 % Normal 1.7-12.0 [facility] Comment on above: Performed By: #### C BC #### [facility] [address] [address] [address] Adalberto Sierra NEUT # 3.6 103/ul Normal 1.4-6.5 [facility] Comment on above: Performed By: #### C BC #### [facility] [address] [address] [address] Adalberto Sierra Neutrophils/100 WBC (Bld) 57.1 % Normal 43.0-75.0 [facility] Comment on above: Performed By: #### C BC #### [facility] [address] [place] [address] Dr. Adalberto Sierra Platelet mean volume (Bld) [Entitic vol] 9.3 fL Critically low 9.5-13.5 [facility] Comment on above: Performed By: #### C BC #### [facility] [address] [place] [address] Dr. Adalberto Sierra PLT 154 103/ul Normal 150-450 [facility] Comment on above: Performed By: #### C BC #### [facility] [address] [place] [address] Dr. Adalberto Sierra RBC 4.68 106/ul Critically low 4.70-6.10 [facility] Comment on above: Performed By: #### C BC #### [facility] [address] [place] [address] Dr. Adalberto Sierra WBC 6.4 103/ul Normal 4.0-11.0 [facility] Comment on above: Performed By: #### C BC #### [facility] [address] [place] [address] Dr. Adalberto Sierra LIPID PROFILEon 07-08-2021 CHOL-HDL RATIO NORM SEE BELOW Normal [facility] Comment on above: Result Comment: 3.3 - 4.4 LOW RISK 4.4 - 7.1 AVERAGE RISK 7.1 - 11.0 MODERATE RISK >11.0 HIGH RISK Performed By: #### L IPID, CMP #### [facility] [address] [address] [address] Adalberto Sierra Cholesterol [Mass/Vol] 87 mg/dL Normal <=200 [facility] Comment on above: Performed By: #### L IPID, CMP #### [facility] [address] [address] [address] Adalberto Sierra Cholesterol in HDL [Mass/Vol] 32 mg/dL Normal [facility] Comment on above: Performed By: #### L IPID, CMP #### [facility] [address] [place] [address] Dr. Adalberto Sierra Cholesterol in LDL [Mass/Vol] 28.6 mg/dL Normal [facility] Comment on above: Performed By: #### L IPID, CMP #### [facility] [address] [place] [address] Dr. Adalberto Sierra Cholesterol.total/ Cholesterol in HDL [Mass ratio] 2.7 {ratio} Normal [facility] Comment on above: Performed By: #### L IPID, CMP #### [facility] [address] [place] [address] Dr. Adalberto Sierra HDL NORMAL > or = 60 mg/dl - LOW CARDIOVASCULAR RISK <40 mg/dl - HIGH CARDIOVASCULAR RISK Normal [facility] Comment on above: Performed By: #### L IPID, CMP #### [facility] [address] [place] [address] Dr. Adalberto Sierra LDL CALC NORMAL SEE BELOW Normal [facility] Comment on above: Result Comment: <100 mg/dl OPTIMAL 100 - 129 mg/dl NEAR OR ABOVE OPTIMAL 130 - 159 mg/dl BORDERLINE HIGH 160 - 189 mg/dl HIGH >190 mg/dl VERY HIGH Performed By: #### L IPID, CMP #### [facility] [address] [place] [address] Dr. Adalberto Sierra Triglyceride [Mass/Vol] 132 mg/dL Normal <=150 [facility] Comment on above: Performed By: #### L IPID, CMP #### [facility] [address] [address] [address] Adalberto Sierra VLDL CALC 26.4 mg/dL Normal [facility] Comment on above: Performed By: #### L IPID, CMP #### [facility] [address] [address] [address] Adalberto Sierra PROF 14(COMP METB)on 022 Albumin [Mass/Vol] 4.0 g/dL Normal 3.5-5.0 [facility] Comment on above: Performed By: #### L IPID, CMP #### [facility] [address] [place] [address] Dr. Adalberto Sierra Albumin/Globulin [Mass ratio] 1.4 {ratio} Normal [facility] Comment on above: Performed By: #### L IPID, CMP #### [facility] [address] [place] [address] Dr. Adalberto Sierra ALP [Catalytic activity/Vol] 102 U/L Normal 38-126 [facility] Comment on above: Performed By: #### L IPID, CMP #### [facility] [address] [place] [address] Dr. Adalberto Sierra ALT [Catalytic activity/Vol] 36 U/L Normal 21-72 [facility] Comment on above: Performed By: #### L IPID, CMP #### [facility] [address] [address] [address] Adalberto Sierra Anion gap [Moles/Vol] 11.0 mmol/L Normal [facility] Comment on above: Performed By: #### L IPID, CMP #### [facility] [address] [address] [address] Adalberto Sierra AST [Catalytic activity/Vol] 24 U/L Normal 17-59 [facility] Comment on above: Performed By: #### L IPID, CMP #### [facility] [address] [place] [address] Dr. Adalberto Sierra Bilirubin [Mass/Vol] 0.9 mg/dL Normal 0.2-1.3 [facility] Comment on above: Performed By: #### L IPID, CMP #### [facility] [address] [address] [address] Adalberto Sierra Calcium [Mass/Vol] 9.3 mg/dL Normal 8.4-10.2 [facility] Comment on above: Performed By: #### L IPID, CMP #### [facility] [address] [address] [address] Adalberto Sierra Chloride [Moles/Vol] 106 mmol/L Normal 98-107 [facility] Comment on above: Performed By: #### L IPID, CMP #### [facility] [address] [address] [address] Adalberto Sierra CO2 [Moles/Vol] 28.0 mmol/L Normal 22.0-30.0 [facility] Comment on above: Performed By: #### L IPID, CMP #### [facility] [address] [place] [address] Dr. Adalberto Sierra Creatinine [Mass/Vol] 0.84 mg/dL Normal 0.66-1.25 [facility] Comment on above: Performed By: #### L IPID, CMP #### [facility] [address] [place] [address] Dr. Adalberto Sierra EGFR-AF BOLIVIAN >60 Normal >=60 [facility] Comment on above: Performed By: #### L IPID, CMP #### [facility] [address] [place] [address] Dr. Adalberto Sierra EGFR-NON AF BOLIVIAN >60 Normal >=60 [facility] Comment on above: Performed By: #### L IPID, CMP #### [facility] [address] [place] [address] Dr. Adalberto Sierra Globulin (S) [Mass/Vol] 2.8 g/dL Normal [facility] Comment on above: Performed By: #### L IPID, CMP #### [facility] [address] [place] [address] Dr. Adalberto Sierra Glucose [Mass/Vol] 101 mg/dL Normal 74-106 [facility] Comment on above: Performed By: #### L IPID, CMP #### [facility] [address] [address] [address] Adalberto Sierra Potassium [Moles/Vol] 4.0 mmol/L Normal 3.4-5.0 [facility] Comment on above: Performed By: #### L IPID, CMP #### [facility] [address] [place] [address] Dr. Adalberto Sierra Protein [Mass/Vol] 6.8 g/dL Normal 6.1-8.2 [facility] Comment on above: Performed By: #### L IPID, CMP #### [facility] [address] [place] [address] Dr. Adalberto Sierra Sodium [Moles/Vol] 141 mmol/L Normal 137-145 [facility] Comment on above: Performed By: #### L IPID, CMP #### [facility] [address] [place] [address] Dr. Adalberto Sierra Urea nitrogen [Mass/Vol] 12.0 mg/dL Normal 9.0-20.0 [facility] Comment on above: Performed By: #### L IPID, CMP #### [facility] [address] [place] [address] Dr. Adalberto Sierra Urea nitrogen/Creatinin e [Mass ratio] 14.3 mg/mg Normal [facility] Comment on above: Performed By: #### L IPID, CMP #### [facility] [address] [place] [address] Dr. Adalberto Sierra Vital Signs Date Time Vital Sign Value Performing Clinician Facility 11-23-2023 08:52-0400 Blood Pressure Location Seb DIOR [facility] 11-23-2023 08:52-0400 Diastolic blood pressure 64 mm[Hg] Seb DIOR [facility] 11-23-2023 08:52-0400 Heart rate 67 /min Seb DIOR [facility] 11-23-2023 08:52-0400 Respiratory rate 16 /min Seb DIOR [facility] 11-23-2023 08:52-0400 Systolic blood pressure 131 mm[Hg] Seb DIOR [facility] 05-04-2023 09:50-0500 Body height 175.26 cm Telma Mcdonald Other [employer] Other 05-04-2023 09:50-0500 Body mass index (BMI) [Ratio] 25.34 kg/m2 Telma Mcdonald Other [employer] Other 05-04-2023 09:50-0500 Body temperature 99.6 [degF] Telma Mcdonald Other [employer] Other 05-04-2023 09:50-0500 Body weight 77.84 kg Telma Tamara Other [employer] Other 05-04-2023 09:50-0500 Diastolic blood pressure 80 mm[Hg] Telma Mcdonald Other [employer] Other 05-04-2023 09:50-0500 Respiratory rate 18 /min Telma Mcdonald Other [employer] Other 05-04-2023 09:50-0500 SaO2% (BldA) [Mass fraction] 96 % Telma Mcdonald Other [employer] Other 05-04-2023 09:50-0500 Systolic blood pressure 134 mm[Hg] Telma Mcdonald Other [employer] Other Encounters Encounter Date Encounter Type Care Provider Facility Start: 02-09-2025 ambulatory Seb Sadaf OVI Facili ty:[facility] Start: 02-09-2025 End: 02-09-2025 Patient encounter procedure Seb R DIOR [facility] Start: 11-21-2024 End: 11-21-2024 ambulatory Seb DIOR Facility:[facility] Start: 11-21-2024 End: 11-21-2024 Patient encounter procedure Seb R OVI [facility] Start: 11-05-2024 End: 11-05-2024 ambulatory [facility] Start: 12-12-2023 End: 12-12-2023 ambulatory SHANIQUA [facility] Start: 11-23-2023 End: 11-23-2023 Patient encounter procedure Seb R OVI [facility] Start: 08-06-2023 End: 08-06-2023 Lab Drop off Seb R OVI [facility] Start: 08-06-2023 End: 08-06-2023 Patient encounter procedure [facility] R [facility]VI [facility] Start: 05-04-2023 End: 05-04-2023 ambulatory Telma Mcdonald Other [employer] Other Start: 05-04-2023 Office outpatient ne w 20 minutes Telma Mcdonald [facility] Start: 08-24-2021 End: 08-25-[address] SUSI A NADERER Facility:[facility] Start: 07-08-2021 End: 07-09-2021 ambulatory SHANIQUA XIAO Facility:[facility] Procedures Date Procedure Procedure Detail Performing Clinician Start: 08-24-[address] SUSI BURDICK Comment on above: Performed By: #### P SAD #### [facility] [address] [address] [address] Adalberto Sierra Start: 10-14-2008 Prostatectomy Seb ARCE Start: 06-30-2008 Transrectal biopsy o f prostate using ultrasound guidance Seb DIOR Biopsy of skin Sebjonathan DEUTSCH S Discectomy of spine Seb DIOR Extraction of cataract Nuryarely alexy DIOR Hemorrhoidectomy Seb RAMIREZ Placement of stent Seb ARCE Immunizations Immunization Date Immunization Notes Care Provider shukri 08-31-2020 SARS-CoV-2 (COVID-19 ) mRNA BNT-162b2 vax Seb DIOR [facility] 08-10-2020 SARS-CoV-2 (COVID-19 ) mRNA BNT-162b2 vax Seb DIOR [facility] Comment on above: Result Comment: 2023: [id number] 03-25-2020 influenza virus vaccine, unspecified formulation Seb DIOR [facility] 03-08-2020 influenza virus vaccine, unspecified formulation Sebjonathan DIOR [facility] Payers Date Payer Category Payer Medicare [id number] 2019 Private Health Insurance [facility] [id number] 1960 Medicare [id number] 1960 Unknown [id number] 1950 Unknown [id number] 1950 Unknown [id number] 1950 Unknown [id number] 1950 Unknown [id number] Social History Date Type Detail Facility Unknown if ever smoked [employer] Other Sex Assigned At [facility] Start: 08-06-2023 End: 02-09-2025 Tobacco smoking status Never smoked tobacco (finding) [facility] Tobacco smoking status Never [facility] Sexual Orientation [facility] Start: 02-27-2019 Sex Male (finding) [facility] Functional Status Date Assessment Result Facility 11-23-2023 Functional Status N/A [facility] 08-06-2023 Functional Status N/A [facility] Clinical Notes 05-04-2023 to 02-09-2025 Note Date & Type Note Facility 02-09-2025 Hospital Discharge instructions Patient Education 02/09/2025 13:30:16 Prostate Cancer Prostate Cancer The prostate is a small gland that produces fluid that makes up semen (seminal fluid). It is located below the bladder in men, in front of the rectum. Prostate cancer is the abnormal growth of cells in the prostate gland. What are the causes? The exact cause of this condition is not known. What increases the risk? You are more likely to develop this condition if: You are 65 years of age or older. You have a family history of prostate cancer. You have a family history of breast and ovarian cancer. You have genes that are passed from parent to child (inherited), such as BRCA1 and BRCA2. You have Bates syndrome. men and men of descent are diagnosed with prostate cancer at higher rates than other men. The reasons for this are not well understood and are likely due to a combination of genetic and environmental factors. What are the signs or symptoms? Symptoms of this condition include: Problems with urination. This may include: ?A weak or interrupted flow of urine. ?Trouble starting or stopping urination. ?Trouble emptying the bladder all the way. ?The need to urinate more often, especially at night. Blood in urine or semen. Persistent pain or discomfort in the lower back, lower abdomen, or hips. Trouble getting an erection. Weakness or numbness in the legs or feet. How is this diagnosed? This condition can be diagnosed with: A digital rectal exam. For this exam, a health care provider inserts a gloved finger into the rectum to feel the prostate gland. A blood test called a prostate-specific antigen (PSA) test. A procedure in which a sample of tissue is taken from the prostate and checked under a microscope (prostate biopsy). An imaging test called transrectal ultrasonography. Once the condition is diagnosed, tests will be done to determine how far the cancer has spread. This is called staging the cancer. Staging may involve imaging tests, such as a bone scan, CT scan, PET scan, or MRI. Stages of prostate cancer The stages of prostate cancer are as follows: Stage 1 (I). At this stage, the cancer is found in the prostate only. The cancer is not visible on imaging tests, and it is usually found by accident, such as during prostate surgery. Stage 2 (II). At this stage, the cancer is more advanced than it is in stage 1, but the cancer has not spread outside the prostate. Stage 3 (III). At this stage, the cancer has spread beyond the outer layer of the prostate to nearby tissues. The cancer may be found in the seminal vesicles, which are near the bladder and the prostate. Stage 4 (IV). At this stage, the cancer has spread to other parts of the body, such as the lymph nodes, bones, bladder, rectum, liver, or lungs. Prostate cancer grading Prostate cancer is also graded according to how the cancer cells look under a microscope. This is called the Glenn score and the total score can range from 6 10, indicating how likely it is that the cancer will spread (metastasize) to other parts of the body. The higher the score, the greater the likelihood that the cancer will spread. Glenn 6 or lower: This indicates that the cancer cells look similar to normal prostate cells (well differentiated). Glenn 7: This indicates that the cancer cells look somewhat similar to normal prostate cells (moderately differentiated). Glenn 8, 9, or 10: This indicates that the cancer cells look very different than normal prostate cells (poorly differentiated). How is this treated? Treatment for this condition depends on several factors, including the stage of the cancer, your age, personal preferences, and your overall health. Talk with your health care provider about treatment options that are recommended for you. Common treatments include: Observation for early stage prostate cancer (active surveillance). This involves having exams, blood tests, and in some cases, more biopsies. For some men, this is the only treatment needed. Surgery. Types of surgeries include: ?Open surgery (radical prostatectomy). In this surgery, a larger incision is made to remove the prostate. ?A laparoscopic radical prostatectomy. This is a surgery to remove the prostate and lymph nodes through several small incisions. It is often referred to as a minimally invasive surgery. ?A robotic radical prostatectomy. This is laparoscopic surgery to remove the prostate and lymph nodes with the help of robotic arms that are controlled by the surgeon. ?Cryoablation. This is surgery to freeze and destroy cancer cells. Radiation treatment. Types of radiation treatment include: ?External beam radiation. This type aims beams of radiation from outside the body at the prostate to destroy cancerous cells. ?Brachytherapy. This type uses radioactive needles, seeds, wires, or tubes that are implanted into the prostate gland. Like external beam radiation, brachytherapy destroys cancerous cells. An advantage is that this type of radiation limits the damage to surrounding tissue and has fewer side effects. Chemotherapy. This treatment kills cancer cells or stops them from multiplying. It kills both cancer cells and normal cells. Targeted therapy. This treatment uses medicines to kill cancer cells without damaging normal cells. Hormone treatment. This treatment involves taking medicines that act on testosterone, one of the male hormones, by: ?Stopping your body from producing testosterone. ?Blocking testosterone from reaching cancer cells. Follow these instructions at home: Lifestyle Do not use any products that contain nicotine or tobacco. These products include cigarettes, chewing tobacco, and vaping devices, such as e-cigarettes. If you need help quitting, ask your health care provider. Eat a healthy diet. To do this: ?Eat foods that are high in fiber. These include beans, whole grains, and fresh fruits and vegetables. ?Limit foods that are high in fat and sugar. These include fried or sweet foods. Treatment for prostate cancer may affect sexual function. If you have a partner, continue to have intimate moments. This may include touching, holding, hugging, and caressing your partner. Get plenty of sleep. Consider joining a support group for men who have prostate cancer. Meeting with a support group may help you learn to manage the stress of having cancer. General instructions Take fpzk-eju-gwlcgbl and prescription medicines only as told by your health care provider. If you have to go to the hospital, notify your cancer specialist (oncologist). Keep all follow-up visits. This is important. Where to find more information [employer]: www.cancer.org [employer]: www.cancer.net National Cancer [place]: www.cancer.gov Contact a health care provider if: You have new or increasing trouble urinating. You have new or increasing blood in your urine. You have new or increasing pain in your hips, back, or chest. Get help right away if: You have weakness or numbness in your legs. You cannot control urination or your bowel movements (incontinence). You have chills or a fever. Summary The prostate is a small gland that is involved in the production of semen. It is located below a man's bladder, in front of the rectum. Prostate cancer is the abnormal growth of cells in the prostate gland. Treatment for this condition depends on the stage of the cancer, your age, personal preferences, and your overall health. Talk with your health care provider about treatment options that are recommended for you. Consider joining a support group for men who have prostate cancer. Meeting with a support group may help you learn to manage the stress of having cancer. This information is not intended to replace advice given to you by your health care provider. Make sure you discuss any questions you have with your health care provider. Document Revised: 08/10/2021 Document Reviewed: 08/10/2021 [employer] Patient Education 2023 [employer] Follow Up Care 12/16/2024 08:46:02 With:OVI HERBERT, Seb Talavera, URL Address: [address] [place] [address] [place] [address] When: Unknown Comments:1 yr w/ PSA & KUB [facility] 11-05-2024 Note OR Cardiology - [facility] Subjective Jermaine Bosch is a 74 [...] with Lyme disease after a trip to [place] in December 2013. He was treated. 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 [facility] 12-12-2023 Note Cardiovascular Medic [facility] SUBJECTIVE Chief Complaint Patient presents with [...] all orders for this visit: Atherosclerosis of white earth coronary artery of white earth heart without angina pectoris Bradycardia - ECG [...] and lopressor 12.5 (more content not included)... [facility] 11-23-2023 Hospital Discharge instructions Patient Education [...] include: ?8 oz (237 mL) of milk, oeasjii-eizglrwyrimy-gypdr milk, and calcium-fortifiedfruit juice. Calcium-fortified means that [...] ?Spinach (cooked), rhubarb, beets, sweet potatoes, and Brazilian chard. ?Peanuts. ?Potato chips, moldovan fries, and baked potatoes with skin on. ?Nuts and nut products. ?Chocolate. If you regularly take a diuretic medicine, make sure to eat at least 1 or 2 servings of fruits or vegetables that are high in potassium each day. These include: ?Avocado. ?Banana. ?[place], prune, carrot, or tomato juice. ?Baked potato. [...] magnesium, fish oil, or vitamin B6. Take bnnf-czq-ppflzpt and prescription medicines only as told by [...] Casseroles. Pizza. Lasagna. Frozen meals. Potato chips. Pashto fries. The items listed above may not [...] provider. Document Revised: 08/24/2022 Document Reviewed: 08/24/2022 [employer] Patient Education 2022 [employer] Follow Up Care 08/06/2023 16:00:40 With:OVI HERBERT, Seb Talavera, URL Address: [address] [place] [address]- When: Unknown [facility] 08-06-2023 Hospital Discharge instructions Patient Education [...] include: ?8 oz (237 mL) of milk, iryufgt-xdrskrqclsvy-bdaqy milk, and calcium-fortifiedfruit juice. Calcium-fortified means that [...] ?Spinach (cooked), rhubarb, beets, sweet potatoes, and Brazilian chard. ?Peanuts. ?Potato chips, moldovan fries, and baked potatoes with skin on. ?Nuts and nut products. ?Chocolate. If you regularly take a diuretic medicine, make sure to eat at least 1 or 2 servings of fruits or vegetables that are high in potassium each day. These include: ?Avocado. ?Banana. ?[place], prune, carrot, or tomato juice. ?Baked potato. [...] magnesium, fish oil, or vitamin B6. Take wqqj-jtw-vrltwsh and prescription medicines only as told by [...] Casseroles. Pizza. Lasagna. Frozen meals. Potato chips. Pashto fries. The items listed above may not [...] provider. Document Revised: 08/24/2022 Document Reviewed: 08/24/2022 [employer] Patient Education 2022 [employer]. Follow Up Care 06/13/2023 15:35:42 With:Seb DIOR MD, URL Address: [facility] [address], [place] [address] [phone] When: Unknown Comments:3-4 mos w/ metabolic workup [facility] 05-04-2023 Evaluation note Encounter Date Diagnosis Assessment Notes Apr, Sinus congestion (ICD-10 - R09.81) Apr, Influenza A (ICD-10 - J10.1) Influenza: adult home care material was printed Drink plenty fluids, get plenty of rest. Take Tylenol or Motrin as needed for aches pains or fevers. Continue home occasions as prescribed. Follow-up with your family physician if no improvement in 2 to 3 days [employer] Other Evaluation + Plan note Future Appointments Appointment Date:11/23/2023 08:45:00 AM Scheduled Provider:Seb DIOR MD Location:[facility] Appointment Type:URO Office Visit Future Scheduled Tests Laboratory* PSA Total 08/06/23 [facility] evaluation + Plan note Future Appointments Appointment Date:11/23/2023 08:45:00 AM Scheduled Provider:[facility] Type:[facility]O Office Visit Diagnostic Tests Pending * PSA Total 08/06/23 Future Scheduled Tests Laboratory[facility] Appointment Date:11/21/2024 08:00:00 AM Scheduled Provider:Seb DIOR MD Location:[facility] Appointment Type:URO Office Visit Diagnostic Tests Pending * PSA Total 09/25/24 * Creatinine 11/23/23 Future Scheduled Tests Laboratory* PSA Total 08/06/23 [facility] [employer] evaluation + Plan note Future Appointments Appointment Date:02/15/2026 10:15:00 AM Scheduled Provider:Seb DIOR MD Location:[facility] Appointment Type:URO Office Visit Diagnostic Tests Pending * PSA Total 02/09/25 [facility] History general Narrative - Reported* Type Description Date Medical History HTN (hypertension) Medical History Hypercholesterolemia Medical History Heart disease Surgical History Neck Surgery Surgical History prostatectomy Surgical History cancer Surgical History hemorrhoidectomy Surgical History cardiac stent Hospitalization History see above [employer] Other Hospital course Narrative No data available for this section [facility] Hospital Discharge instructions No data available for this section [facility] No data available for this section [facility] [employer] [place] Summary Purpose Family History No Family History Records Found No data available for this section No data available for this section No data available for this section No data available for this section No Family History Records FoundNo Family History Records Found No data available for this section Advance Directives No Advanced Directives Records FoundNo Advanced Directives Records FoundNo Advanced Directives Records Found Additional Source Comments (unrecognized sect ion and content) No Status Records FoundNo Status Records FoundNo Status Records Found INFORMATION SOURCE (unrecogn ized section and content) DATE CREATED AUTHOR 08/29/2021 [facility] DATE CREATED AUTHOR AUTHOR'S ORGANIZ ATION 12/06/2024 [facility] DATE CREATED AUTHOR AUTHOR'S ORGANIZ ATION 02/08/2025 [facility] REASON FOR VISIT (unrecogniz ed section and content) SINUS CONGESTION, COUGH, EXP OSURE TO INFLUENZA Patient Care team informatio n (unrecognized section and content) Personnel Name: SUSI JACKSON MD Address: Address: [address] [place] [address] Personnel Name: SUSI JACKSON MD Address: Address: [address] [place] [address] Personnel Name: SUSI JACKSON MD Address: Address: [address] [place] [address] Personnel Name: SUSI JACKSON MD Address: [address] [place] [address] Telecom: Personnel Name: SUSI JACKSON MD Address: [address] [place] [address] Telecom: FOR RECORDS PERTAINING TO PATIENTS WHO [...] BE BASED ON THE PRIMARY CLINICAL RECORDS. [employer] [facility]. provides no warranty or guarantee of the accuracy or completeness of information in this document.
== END 2025-02-10 09:14 | disposition home or self-care (01) ==
LOC: RAD 09:14
PROVIDERS: PCP Family Medicine; Visit Provider Urology
DX: N20.0 Calculus of kidney (principal)
CPT/HCPCS: 74018